=== PATIENT | male | born 1990 | race Caucasian/White ===

== ENCOUNTER 2022-03-12 17:15 | Observation (INO) | payer OTHER ==
[2022-03-12] MEDS ORDERED: AMMONIA 1 EA AMP IH ONE (17:39)
[2022-03-12] MEDS ORDERED: 0.9%NACL 1000ML 1,000 ML IV ONE (17:42)
[2022-03-12 17:54] LABS: ABG BASE EXCESS -0.3 mmol/L (-2.0-3.0); ABG HCO3 24.3 mmol/L (21.0-28.0); ABG OXYGEN SATURATION 98.9 % (95.0-99.0); ABG PCO2 40 mmHg (35-48)
[2022-03-12 17:59] LABS: BASOPHILS % (AUTO) 0.8 % (0.0-5.0); EOSINOPHILS % (AUTO) 0.9 % (0.0-8.0); LYMPHOCYTES % (AUTO) 13.2 % (21.0-51.0); MEAN CORPUSCULAR HEMOGLOBIN 30.7 pg (27.0-33.0); MEAN CORPUSCULAR HGB CONC 33.1 g/dL (32.0-36.0); MEAN CORPUSCULAR VOLUME 92.7 fL (79-99); MONOCYTES % (AUTO) 6.7 % (3.0-13.0); NEUTROPHILS % (AUTO) 77.6 % (40.0-77.0); PLATELET COUNT (AUTO) 270 K/uL (130-400); RED CELL DISTRIBUTION WIDTH 13.1 % (11.0-15.5); WHITE BLOOD COUNT (AUTO) 11.8 K/uL (4.8-10.8)
[2022-03-12 18:10] LABS: APPEARANCE,URINE Clear (CLEAR); BILIRUBIN,URINE Negative (NEGATIVE); COLOR,URINE Yellow (YELLOW); GLUCOSE, URINE (UA) Negative (NEGATIVE); KETONES,URINE Negative (NEGATIVE); LEUKOCYTE ESTERASE ,URINE Negative (NEGATIVE); NITRATE,URINE Negative (NEGATIVE); OCCULT BLOOD,URINE Negative (NEGATIVE); PH,URINE 6.5 (5.0-8.0); PROTEIN,URINE Negative (NEGATIVE)
[2022-03-12 18:18] LABS: CARBON DIOXIDE 28 mmol/L (21-32); CHLORIDE 107 mmol/L (101-111); CREATININE 0.9 mg/dL (0.5-1.5); GLOMERULAR FILTR. RATE CALC 105 mL/min (>60); GLUCOSE,RANDOM 101 mg/dL (70-105); POTASSIUM 3.9 mmol/L (3.5-5.1); SODIUM SERUM 145 mmol/L (136-145); UREA NITROGEN, BLOOD 9 mg/dL (7-18)
[2022-03-12 18:18] LABS: AMPHET/METH SCREEN,URINE POSITIVE (NEGATIVE); BARBITURATE SCREEN, URINE NEGATIVE (NEGATIVE); BENZODIAZEPINES SCREEN,URINE NEGATIVE (NEGATIVE); CANNABINOID SCREEN,URINE POSITIVE (NEGATIVE); COCAINE SCREEN,URINE POSITIVE (NEGATIVE); OPIATE SCREEN,URINE NEGATIVE (NEGATIVE); PHENCYCLIDINE SCREEN,URINE NEGATIVE (NEGATIVE)
[2022-03-12 18:22] LABS: ALANINE AMINOTRANSFERASE 30 U/L (12-78); ALBUMIN 4.2 g/dL (3.5-5.0); ALCOHOL, BLOOD < 3 mg/dL (0-10); ASPARTATE AMINOTRANSFERASE 18 U/L (10-37); BILIRUBIN,TOTAL 0.3 mg/dL (0.2-1.0); CREATINE KINASE, TOTAL 84 U/L (21-232); TOTAL PROTEIN, SERUM 7.6 g/dL (6.0-8.3)
[2022-03-12 18:23] LABS: ACETAMINOPHEN < 1 mcg/mL (10-29); SALICYLATE < 2.8 mg/dL (2.8-20.0)
[2022-03-12] MEDS ORDERED: LORAZEPAM 2 MG/ML 1 ML VIAL IVP ONE (18:30)
[2022-03-12] MEDS ORDERED: LORAZEPAM 2 MG/ML 1 ML VIAL IVP PRN (20:00)
[2022-03-12] MEDS ORDERED: ONDANSETRON 4MG INJ IV PRN (20:00)
[2022-03-12] MEDS ORDERED: ACETAMINOPHEN 325 MG TAB PO PRN (20:00)
[2022-03-12] MEDS ORDERED: 0.9%NACL 1000ML 1,000 ML IV SCH (20:00)
[2022-03-12] MEDS ORDERED: FAMOTIDINE 20MG VIAL IV SCH (21:00)
[2022-03-12 22:57] VITALS: BP 129/80
[2022-03-13] MEDS ORDERED: ENOXAPARIN SODIUM 40 MG/0.4 ML SYRINGE SQ SCH (09:00)
== END 2022-03-13 01:21 | disposition left against medical advice (07) ==
LOC: EDH 17:15 → EEVIPCON 17:15 → EDHIP 17:16
PROVIDERS: ADMIT Hospitalist; ATTEND Hospitalist
DX: R41.82 Altered mental status, unspecified (principal); R25.9 Unspecified abnormal involuntary movements; R56.9 Unspecified convulsions; F19.10 Other psychoactive substance abuse, uncomplicated; F14.10 Cocaine abuse, uncomplicated; F15.10 Other stimulant abuse, uncomplicated; F12.10 Cannabis abuse, uncomplicated; Z79.899 Other long term (current) drug therapy
CPT/HCPCS: 36415; 36600; 70450; 71045; 74018; 80053; 80305; 81003; 82435; 82550; 82803; 82947; 83605; 84132; 84145; 84295; 85018; 85025; 93005; 96361; 96374; 96375; 99285; G0378 ×7; G0481; J2060; J3490 ×2; J7030 ×2

== ENCOUNTER 2025-01-09 11:51 | Inpatient (IN) | payer SELFPAY ==
[~2025-01-09] VITALS: Ht 167.6 cm; Wt 105.7 kg
--- NOTE | 2025-01-09 12:00 | ERN ---
ED Note History of Present Illness Stated Complaint: ABDOMINAL PAIN Chief Complaint: Abdominal Pain Time Seen by MD: 11:52 Dictation: PATIENT IS A 34-YEAR-OLD MALE COMING IN WITH COMPLAINTS OF EPIGASTRIC AND LEFT UPPER QUADRANT PAIN BURNING ONSET 10 DAYS PRIOR TO ARRIVAL. NO NAUSEA VOMITING NO DIARRHEA NO FEVER NO CHILLS. STATES HE WAS SEEN AT [facility] SEVERAL DAYS AGO FOR THE SAME PAIN, THEY PAT LABS AND PRESCRIBED MEDICATIONS TO HIM OUTPATIENT WHICH HE DID NOT FEEL. HE STATES THE PAIN WENT AWAY AFTER HIS VISIT TO [facility] EVEN THOUGH THEY DID NOT DO ANYTHING FOR ME. HE DID NOT FOLLOW UP WITH HIS PRIMARY CARE DOCTOR COLLAR . LAST FOOD INTAKE WAS LAST NIGHT, HE STATES HE ATE [facility] AND THE PAIN RETURNED Allergies: Coded Allergies: No Known Allergies (Unverified Allergy, Unknown, 03/12/22) Past Medical History Past Medical History: Anxiety Additional Past Medical Hx: Obesity Surgical History: None Family History: Negative Social History: Negative RN Note Reviewed/Agreed w/PFSH: Yes Review of System Dictation CONSTITUTIONAL: NEGATIVE EXCEPT FOR HPI HEAD/FACE: NEGATIVE EXCEPT FOR HPI EENT: NEGATIVE EXCEPT FOR HPI RESPIRATORY: NEGATIVE EXCEPT FOR HPI GASTROINTESTINAL/ABDOMINAL: NEGATIVE EXCEPT FOR HPI EPIGASTRIC AND LEFT UPPER QUADRANT PAIN/BURN GENITOURINARY: NEGATIVE EXCEPT FOR HPI MUSCULOSKELETAL: NEGATIVE EXCEPT FOR HPI INTEGUMENTARY: NEGATIVE EXCEPT FOR HPI NEUROLOGICAL/PSYCH: NEGATIVE EXCEPT FOR HPI HEMATOLOGIC/LYMPHATIC: NEGATIVE EXCEPT FOR HPI ALL SYSTEMS NEGATIVE, EXCEPT NOTED ABOVE. 13 POINT REVIEW OF SYSTEMS ASSESSED AND ALL NEGATIVE EXCEPT FOR ABOVE. Initial Vital Sign VS Vital Signs Date Time Temp Pulse Resp B/P (MAP) Pulse Ox O2 Delivery O2 Flow Rate FiO2 01/09/25 11:54 97.9 76 20 153/93 98 Room Air 0 01/09/25 12:06 21 Physical Exam Dictation VITAL SIGNS REVIEWED GENERAL APPEARANCE: ALERT, ORIENTED X 3, MODERATE ACUTE DISTRESS, WELL DEVELOPED, NOURISHED. OBESE HEAD AND FACE: NON-TRAUMATIC. EYES: PERRL, PINK CONJUNCTIVAS, EYELID NO TRAUMA, ANTERIOR CHAMBER WITH ARCUS SENILIS. EARS: PINNAS INTACT AND NO SIGNS OF TRAUMA OR ERYTHEMA EAR CANALS CLEAR AND NO DISCHARGE TM NO ERYTHEMA NOSE: NO DISCHARGE, NO BLEEDING. OROPHARYNX: MOUTH NORMAL, TONGUE PINK, PHARYNX CLEAR,NO ERYTHEMA, TONSILS NO EXUDATES, NO ABSCESSES NOTED, MUCOUS MEMBRANE MOIST NECK: SUPPLE, NON-TENDER, NO THYROMEGALY, NO MASSES, NO JVD, NO BRUITS BREAST:DEFERRED CHEST:NO TENDERNESS, NO CREPITUS, NO PARADOXICAL MOVEMENT, NO RETRACTIONS LUNGS:CLEAR, WELL-VENTILATED, SYMMETRIC, NO RALES, NO WHEEZING, NO RHONCHI, NO STRIDOR, GOOD BREATH SOUNDS BILATERALLY HEART: REGULAR RATE, REGULAR RHYTHM, NO MURMUR, NO GALLOPS VASCULAR: NO PERIPHERAL EDEMA, ABDOMEN: SOFT, POSITIVE BOWEL SOUNDS, NONDISTENDED, NO GUARDING, MILD EPIGASTRIC TENDERNESS NO REBOUND, NO MASSES NO HEPATOMEGALY, NO SPLENOMEGALY, NO INFANTE'S SIGN, NO HERNIAS. RECTAL: DEFERRED GENITAL: DEFERRED NEUROLOGICAL: NORMAL SPEECH, MOTOR FUNCTION INTACT, SENSORY FUNCTION INTACT MUSCULOSKELETAL: NECK NONTENDER, FULL RANGE OF MOTION, BACK NONTENDER, FULL RANGE OF MOTION, EXTREMITIES: NONTENDER, FULL RANGE OF MOTION SKIN: COLOR PINK, DRY, NO TURGOR, NO RASH, NO LACERATIONS, NO ABRASIONS, NO CONTUSIONS. LYMPHATIC: DEFERRED Results (Laboratory/Radiology) Laboratory/Radiology Laboratory Tests Test 01/09/25 12:03 01/09/25 12:10 01/09/25 17:00 01/09/25 19:09 Urine Opiates Screen NEGATIVE (NEGATIVE) Urine Barbiturates Screen NEGATIVE (NEGATIVE) Urine Phencyclidine Screen NEGATIVE (NEGATIVE) Urine Amphetamines Screen NEGATIVE (NEGATIVE) Urine Benzodiazepines Screen NEGATIVE (NEGATIVE) Urine Cocaine Screen POSITIVE (NEGATIVE) H Urine Marijuana (THC) Screen POSITIVE (NEGATIVE) H White Blood Count 17.2 K/uL (4.8-10.8) H Red Blood Count 5.10 MIL/uL (4.50-6.20) Hemoglobin 14.9 g/dL (14.0-18.0) Hematocrit 45.7 % (42-54) Mean Corpuscular Volume 89.6 fL (79-99) Mean Corpuscular Hemoglobin 29.2 pg (27.0-33.0) Mean Corpuscular Hemoglobin Concent 32.6 g/dL (32.0-36.0) Red Cell Distribution Width 13.1 % (11.0-15.5) Platelet Count 355 K/uL (130-400) Mean Platelet Volume 9.7 fL (7.5-10.5) Immature Granulocyte % (Auto) 0.9 % (0-1) Neutrophils (%) (Auto) 83.8 % (40.0-77.0) H Lymphocytes (%) (Auto) 8.3 % (21.0-51.0) L Monocytes (%) (Auto) 6.3 % (3.0-13.0) Eosinophils (%) (Auto) 0.2 % (0.0-8.0) Basophils (%) (Auto) 0.5 % (0.0-5.0) Neutrophils # (Auto) 14.4 K/uL (1.8-7.7) H Lymphocytes # (Auto) 1.4 K/uL (1.0-4.8) Monocytes # (Auto) 1.1 K/uL (0.1-1.0) H Eosinophils # (Auto) 0.03 K/uL (0.00-0.70) Basophils # (Auto) 0.08 K/uL (0.00-0.20) Absolute Immature Granulocyte (auto 0.16 K/uL (0-1) Nucleated Red Blood Cells 0.0 % (0.0-0.19) White Cell Morphology Comment See comments Erythrocyte Sedimentation Rate 25 MM/HR (0-15) H Prothrombin Time 10.4 SEC (9.6-11.6) Prothromb Time International Ratio 0.98 (0.85-1.15) Activated Partial Thromboplast Time 29.3 SEC (26.3-35.5) Sodium Level 139 mmol/L (136-145) Potassium Level 4.0 mmol/L (3.5-5.1) Chloride Level 100 mmol/L (101-111) L Carbon Dioxide Level 33 mmol/L (21-32) H Blood Urea Nitrogen 10 mg/dL (7-18) Creatinine 0.8 mg/dL (0.5-1.3) Glomerular Filtration Rate Calc 119 mL/min (>90) Random Glucose 116 mg/dL (70-105) H Hemoglobin A1c 5.2 % (4.0-6.0) Estimated Average Glucose (eAG) 103 mg/dL (70-126) Total Calcium 9.5 mg/dL (8.5-10.1) Total Bilirubin 2.8 mg/dL (0.2-1.0) H Direct Bilirubin 2.1 mg/dL (0.0-0.3) H Aspartate Amino Transf (AST/SGOT) 376 U/L (10-37) H Alanine Aminotransferase (ALT/SGPT) 553 U/L (12-78) H Alkaline Phosphatase 175 U/L (50-136) H C-Reactive Protein, Quantitative 27.10 mg/L (0.5-3.0) H Total Protein 8.0 g/dL (6.0-8.3) Albumin 4.0 g/dL (3.5-5.0) Lipase 22 U/L (16-77) Procalcitonin 0.30 ng/mL (0.05-0.5) Thyroid Stimulating Hormone (TSH) 0.90 uIU/mL (0.36-3.74) Total Creatine Kinase 96 U/L (21-232) Troponin I High Sensitivity 6.6 ng/L (4-75) B-Type Natriuretic Peptide 17 pg/mL (0-100) Whole Blood Glucose 85 MG/DL (70-110) Test 01/10/25 05:17 01/10/25 06:17 01/11/25 06:07 Whole Blood Glucose 92 MG/DL (70-110) White Blood Count 8.5 K/uL (4.8-10.8) # 8.0 K/uL (4.8-10.8) Red Blood Count 4.40 MIL/uL (4.50-6.20) L 4.52 MIL/uL (4.50-6.20) Hemoglobin 12.9 g/dL (14.0-18.0) L 13.5 g/dL (14.0-18.0) L Hematocrit 40.2 % (42-54) L 41.2 % (42-54) L Mean Corpuscular Volume 91.4 fL (79-99) 91.2 fL (79-99) Mean Corpuscular Hemoglobin 29.3 pg (27.0-33.0) 29.9 pg (27.0-33.0) Mean Corpuscular Hemoglobin Concent 32.1 g/dL (32.0-36.0) 32.8 g/dL (32.0-36.0) Red Cell Distribution Width 13.2 % (11.0-15.5) 13.1 % (11.0-15.5) Platelet Count 242 K/uL (130-400) # 258 K/uL (130-400) Mean Platelet Volume 9.4 fL (7.5-10.5) 9.5 fL (7.5-10.5) Immature Granulocyte % (Auto) 0.9 % (0-1) 1.5 % (0-1) H Neutrophils (%) (Auto) 71.3 % (40.0-77.0) 69.2 % (40.0-77.0) Lymphocytes (%) (Auto) 18.1 % (21.0-51.0) L 20.3 % (21.0-51.0) L Monocytes (%) (Auto) 8.0 % (3.0-13.0) 6.9 % (3.0-13.0) Eosinophils (%) (Auto) 1.3 % (0.0-8.0) 1.6 % (0.0-8.0) Basophils (%) (Auto) 0.4 % (0.0-5.0) 0.5 % (0.0-5.0) Neutrophils # (Auto) 6.1 K/uL (1.8-7.7) 5.5 K/uL (1.8-7.7) Lymphocytes # (Auto) 1.6 K/uL (1.0-4.8) 1.6 K/uL (1.0-4.8) Monocytes # (Auto) 0.7 K/uL (0.1-1.0) 0.6 K/uL (0.1-1.0) Eosinophils # (Auto) 0.11 K/uL (0.00-0.70) 0.13 K/uL (0.00-0.70) Basophils # (Auto) 0.03 K/uL (0.00-0.20) 0.04 K/uL (0.00-0.20) Absolute Immature Granulocyte (auto 0.08 K/uL (0-1) 0.12 K/uL (0-1) Nucleated Red Blood Cells 0.0 % (0.0-0.19) 0.0 % (0.0-0.19) Prothrombin Time 11.3 SEC (9.6-11.6) Prothromb Time International Ratio 1.07 (0.85-1.15) Sodium Level 138 mmol/L (136-145) Potassium Level 3.8 mmol/L (3.5-5.1) Chloride Level 104 mmol/L (101-111) Carbon Dioxide Level 28 mmol/L (21-32) Blood Urea Nitrogen 7 mg/dL (7-18) Creatinine 0.8 mg/dL (0.5-1.3) Glomerular Filtration Rate Calc 119 mL/min (>90) Random Glucose 83 mg/dL (70-105) Total Calcium 8.2 mg/dL (8.5-10.1) L Total Bilirubin 5.3 mg/dL (0.2-1.0) #H Direct Bilirubin 4.6 mg/dL (0.0-0.3) #H Aspartate Amino Transf (AST/SGOT) 179 U/L (10-37) H Alanine Aminotransferase (ALT/SGPT) 362 U/L (12-78) #H Alkaline Phosphatase 166 U/L (50-136) H Total Protein 6.1 g/dL (6.0-8.3) # Albumin 2.7 g/dL (3.5-5.0) #L No aortic aneurysmal dilation or dissection identified. PELVIS: No evidence for free air or organized pelvic fluid collection. No significant pelvic adenopathy detected. Visualized small and large bowel loops appear unremarkable. Terminal ileum appears normal. The appendix appears normal. The urinary bladder appears unremarkable. Visible osseous structures are intact. IMPRESSION: Sonographic imaging was not available prior to this study. Findings suggesting acute calculus cholecystitis. ULTRASOUND RIGHT UPPER QUADRANT DEMONSTRATES GALLBLADDER WALL SEVEN MM. IN ADDITION HE HAS MULTIPLE STONES WITH SLUDGE COMMON BILE DUCT NORMAL FATTY LIVER NOTED Labs Reviewed?: Yes ED Course ED Course Orders Procedure Category Date Status Time Cbc With Differential LAB 01/09/25 Complete 11:56 Lidocaine Hcl 2% PHA 01/09/25 Complete Viscous (Lidocaine Hcl 12:00 Mag/Alum/Simeth 30ml PHA 01/09/25 Complete (Maalox Plus 30ml) 12:00 Famotidine 20mg Tab PHA 01/09/25 Complete (Pepcid 20mg Tab) 12:00 Dicyclomine Hcl PHA 01/09/25 Complete (Bentyl 10mg/5ml 12:00 Lipase LAB 01/09/25 Complete 11:56 Basic Metabolic Panel LAB 01/09/25 Complete 11:56 0.9%Nacl 1000ml (Ns PHA 01/09/25 Complete 1000ml) 12:30 Morphine 2mg Syg PHA 01/09/25 Complete (Morphine 2mg Syg) 12:30 Ondansetron 4mg Inj PHA 01/09/25 Complete (Zofran 4mg Inj) 12:30 Ct Abdomen/Pelvis CT 01/09/25 Resulted W/Contrast 12:42 Iohexol (Omnipaque) PHA 01/09/25 Complete 12:49 Zosyn 3.375gm+Ns 50ml PHA 01/09/25 Complete (Zosyn 3.375gm+Ns 14:00 Us Abdominal Ruq\Ltd US 01/09/25 Resulted 13:31 Morphine 4mg Syg PHA 01/09/25 Complete (Morphine 4mg Syg) 14:00 Admit Orders ADM 01/09/25 Transmitted 14:45 Edm Admit Bridge Order ADM 01/09/25 Transmitted 14:45 General Surgery CONPHYSVC 01/09/25 Transmitted Consult 14:45 Lactated Ringers PHA 01/09/25 In Process 1000ml (Lactated 15:00 Hepatic Function Panel LAB 01/09/25 Complete 14:55 Thyroid Stimulating LAB 01/09/25 Complete Hormone 14:55 Hemoglobin A1c LAB 01/09/25 Complete 14:55 Pt And Ptt LAB 01/09/25 Complete 14:55 Drug Screen Urine LAB 01/09/25 Complete 14:55 Blood Cult DIDI 01/09/25 In Process 14:55 Erythrocyte LAB 01/09/25 Complete Sedimentation Rate 14:55 Crp Quantitative LAB 01/09/25 Complete 14:55 Procalcitonin LAB 01/09/25 Complete 14:55 Telemetry Monitoring CPOE 01/09/25 Transmitted 14:55 Prothrombin Time With LAB 01/10/25 Complete INR 04:00 Obtain Consent For: CPOE 01/10/25 Transmitted 09:00 Acetaminophen 325 Tab PHA 01/09/25 In Process (Tylenol 325mg Tab 15:00 Ondansetron 4mg Inj PHA 01/09/25 In Process (Zofran 4mg Inj) 15:00 Thiamine Hcl (Vitamin PHA 01/09/25 In Process B-1) 15:00 Npo Except For Meds CPOE 01/09/25 Transmitted 14:57 Scd Both Legs While CPOE 01/09/25 Transmitted In Bed 14:57 Zosyn 3.375gm+Ns 50ml PHA 01/09/25 In Process (Zosyn 3.375gm+Ns 19:00 0.9%Nacl 50ml (Ns PHA 01/09/25 Complete 50ml) 19:00 Pantoprazole 40mg Inj PHA 01/09/25 In Process (Protonix 40mg Inj 15:00 Chest 1vw RAD 01/09/25 Resulted 15:01 Ketorolac PHA 01/09/25 In Process Tromethamine 15mg/Ml 15:30 Morphine 2mg Syg PHA 01/09/25 In Process (Morphine 2mg Syg) 15:30 Cardiac Panel LAB 01/09/25 Complete 16:29 B-Type Natriuretic LAB 01/09/25 Complete Peptide 16:30 Nm Hida Wo Ef/Cck NM 01/09/25 Resulted 14:55 Hydralazine 20mg Inj PHA 01/09/25 In Process (Apresoline 20mg In 18:30 Cbc With Differential LAB 01/10/25 Complete 04:00 Basic Metabolic Panel LAB 01/10/25 Complete 04:00 Hepatic Function Panel LAB 01/10/25 Complete 06:17 Gastroenterology CONPHYSVC 01/10/25 Transmitted Consult 08:47 Acetaminophen With PHA 01/10/25 In Process Codeine (Tylenol-Code 10:00 Cv Rt Incentive CPOE 01/10/25 Transmitted Spirometry 09:45 Initiate Po MIKKI 01/10/25 In Process Hypokalemia Protoc 09:45 Potassium Chloride PHA 01/10/25 In Process 20meq/100ml ([place] 10:00 Potassium Chl 10% PHA 01/10/25 In Process Elixir 20meq (Kcl 10% 10:00 Potassium Chloride PHA 01/10/25 In Process 20meq Er (K-Dur/Klor- 10:00 Notify Physician If CPOE 01/10/25 Transmitted There Is 09:45 Notify Md On The Next CPOE 01/10/25 Transmitted 09:45 Notify Md On The CPOE 01/10/25 Transmitted Next(Cont.) 09:45 Magnesium 2gm Premix PHA 01/10/25 In Process 50ml (Magnesium 2gm 10:00 Cbc With Differential LAB 01/11/25 Complete 04:00 Magnesium LAB 01/11/25 In Process 04:00 Comprehensive LAB 01/11/25 In Process Metabolic Panel 04:00 Midazolam Hcl (Versed) PHA 01/10/25 Complete 11:42 Rocuronium [place] PHA 01/10/25 Complete (Zemuron) 11:42 Propofol 20ml Vial PHA 01/10/25 Complete (Diprivan 20ml Vial) 11:42 Fentanyl Citrate Pf PHA 01/10/25 Complete 0.05 Mg/Ml (Fentanyl 11:42 Ondansetron 4mg Inj PHA 01/10/25 Complete (Zofran 4mg Inj) 11:47 Ercp Bili/Panc Duct RAD 01/10/25 Resulted 11:54 Iohexol (Omnipaque) PHA 01/10/25 Complete 11:56 Consent Ercp In Am CPOE 01/10/25 Transmitted 11:59 Atropine 1mg Syg PHA 01/10/25 Complete (Atropine 1mg Syg) 12:47 Glycopyrrolate PHA 01/10/25 Complete (Robinul) 13:05 Neostigmine PHA 01/10/25 Complete Methylsulfate 13:05 Indomethacin PHA 01/10/25 Complete (Indomethacin) 13:30 Full Liquid DIET 01/10/25 Transmitted Dinner Npo After Midnight MIKKI 01/10/25 Transmitted 14:54 Obtain Consent For: CPOE 01/11/25 Transmitted 08:00 Nicotine 7mg Patch PHA 01/10/25 Complete (Nicoderm) 18:30 Amylase LAB 01/11/25 In Process 04:00 Lipase LAB 01/11/25 In Process 04:00 Vital Signs Date Time Temp Pulse Resp B/P (MAP) Pulse Ox O2 Delivery O2 Flow Rate FiO2 01/11/25 04:00 98.6 55 16 101/65 94 Room Air 01/11/25 00:00 98.4 63 16 112/61 97 Room Air 21 01/10/25 20:41 96 Room Air* 0 01/10/25 20:00 98.2 70 16 125/82 96 Room Air 21 01/10/25 18:00 62 18 103/68 97 Room Air 01/10/25 17:00 59 18 106/62 98 Room Air 01/10/25 16:00 62 18 105/61 97 Room Air 01/10/25 15:30 65 18 114/67 97 Room Air 01/10/25 15:00 57 18 112/70 97 Room Air 01/10/25 14:45 101 18 109/56 98 Room Air 01/10/25 14:30 71 18 98/63 98 Room Air 01/10/25 14:15 98 18 117/73 98 Room Air 01/10/25 14:00 97.9 62 18 117/65 99 Room Air 01/10/25 13:54 97.7 56 17 128/77 100 Room Air 01/10/25 13:49 54 16 119/74 99 Room Air 01/10/25 13:44 56 15 125/72 100 Room Air 01/10/25 13:39 57 16 122/71 100 Room Air 01/10/25 13:34 53 17 123/77 98 Room Air 01/10/25 13:29 53 16 125/78 99 Room Air 01/10/25 13:24 51 16 114/73 98 Room Air 01/10/25 13:19 54 15 107/61 97 Room Air 01/10/25 13:14 59 17 101/59 98 Room Air 01/10/25 13:09 97.3 81 16 119/61 99 Nonrebreathing Mask 10.0 01/10/25 09:10 97 Room Air* 0 01/10/25 08:00 97.9 53 17 105/64 97 Room Air 01/10/25 04:00 98.2 65 16 98/60 96 Room Air 01/10/25 00:00 97.9 100 16 114/62 94 Room Air 01/09/25 20:44 96 Room Air* 0 01/09/25 20:00 98.1 93 17 141/87 96 Room Air 01/09/25 17:35 98.1 77 17 160/84 99 Room Air 01/09/25 17:05 99 Room Air* 0 01/09/25 13:51 99.0 84 20 135/65 98 Room Air* 0 01/09/25 12:06 97.9 76 20 153/93 98 Room Air* 0 01/09/25 11:54 97.9 76 20 153/93 98 Room Air 0 1440/SPOKE WITH , REVIEWED CT ULTRASOUND LABS AND INTERVENTIONS FOR PAIN MULTIPLE TIMES. HE AGREED TO ADMIT PATIENT AND ASKED ME TO CONSULT DR. HOLM Medical Decision Making MDM MDM: DIFFERENTIAL DIAGNOSIS: INTRACTABLE ABDOMINAL PAIN/PANCREATITIS/: LITHIASIS/CHOLEDOCHOLITHIASIS/HIS LICE GASTRITIS RATIONALE: TESTS CONSIDERED AND ORDERED SECONDARY TO SHARED DECISION MAKING INCLUDE: LABS, AND RADIOLOGY PREVIOUS OUTSIDE RECORDS REVIEWED: OLD ER VISITS. RISK OF COMPLICATION AND/OR MORBIDITY OR MORTALITY OF PATIENT MANAGEMENT: NONE MEDICATIONS-PER MEDICATION RECONCILIATION NEED FOR HOSPITALIZATION: PATIENT DOES MEET CRITERIA FOR HOSPITALIZATION. INTRACTABLE ABDOMINAL PAIN CHOLELITHIASIS NEED FOR EMERGENCY MAJOR/MINOR SURGERY: NO POSSIBLE THERE ARE NO SOCIAL CONCERNS WITH THIS PATIENT. PRESCRIPTION DRUG MANAGEMENT PRESCRIPTIONS WILL INCLUDE SYMPTOMATIC CARE PATIENT'S PRIOR EXTERNAL MEDICAL RECORDS FROM OTHER ER VISITS WERE REVIEWED BY ME INDICATED. PRIOR TESTING AND RESULTS FROM PREVIOUS VISITS WERE REVIEWED. PRIOR TESTS WERE TAKEN INTO ACCOUNT WITH MEDICAL DECISION MAKING AND RESOURCE UTILIZATION, INDEPENDENT HISTORIAN/HISTORIANS WERE USED TO OBTAIN COMPLETE MEDICAL HISTORY. I INDEPENDENTLY INTERPRETED THE TEST THAT WERE PERFORMED, RESULTS WERE REVIEWED BY ME AND CONSIDERED FINDINGS ON RADIOLOGY IF ORDERED. MEDICAL MANAGEMENT AND EXAMINATION INTERPRETATION DISCUSSIONS WERE HAD BY ME WITH OTHER QUALIFIED HEALTHCARE PROFESSIONALS INDICATED FOR THE PATIENT'S CARE. DX & DISP Disposition: Inpatient Decision to Admit Time: 14:32 Departure Impression: Primary Impression: Acute cholecystitis Additional Impressions: Hyperglycemia, Nausea & vomiting, Intractable ab dominal pain Condition: Stable Referrals: NONE (PCP) Time of Disposition: 14:32 I have reviewed the case, and I agree with, Diagnosis and Plan I performed a substantive portion of the visit. I have reviewed and personally made and approve the management plan that is documented in the notes by myself with ENE/resident. I acknowledged full responsibility for the patient's management plan. RACIEL MOY NP Jan 09, 2025 12:00 ALMA GARCIA DO Jan 11, 2025 07:04
[2025-01-09] MEDS: DICYCLOMINE HCL 10 MG/5 ML ML PO ONE (12:12)
[2025-01-09] MEDS: MAG/ALUM/SIMETH 30 ML UDCUP PO ONE (12:12)
[2025-01-09] MEDS: FAMOTIDINE 20MG TAB PO ONE (12:12)
[2025-01-09] MEDS: LIDOCAINE HCL 2% VISCOUS 15 ML UDCUP PO ONE (12:12)
[2025-01-09 12:17] LABS: BASOPHILS # (AUTO) 0.08 K/uL (0.00-0.20); BASOPHILS % (AUTO) 0.5 % (0.0-5.0); EOSINOPHILS # (AUTO) 0.03 K/uL (0.00-0.70); EOSINOPHILS % (AUTO) 0.2 % (0.0-8.0); HEMATOCRIT 45.7 % (42-54); IMMATURE GRANULOCYTE ABSOLUTE 0.16 K/uL (0-1); LYMPHOCYTES # (AUTO) 1.4 K/uL (1.0-4.8); LYMPHOCYTES % (AUTO) 8.3 % (21.0-51.0); MEAN CORPUSCULAR HEMOGLOBIN 29.2 pg (27.0-33.0); MEAN CORPUSCULAR HGB CONC 32.6 g/dL (32.0-36.0); MEAN CORPUSCULAR VOLUME 89.6 fL (79-99); MONOCYTES # (AUTO) 1.1 K/uL (0.1-1.0); MONOCYTES % (AUTO) 6.3 % (3.0-13.0); NEUTROPHILS # (AUTO) 14.4 K/uL (1.8-7.7); NEUTROPHILS % (AUTO) 83.8 % (40.0-77.0); PLATELET COUNT (AUTO) 355 K/uL (130-400); RED CELL DISTRIBUTION WIDTH 13.1 % (11.0-15.5); WHITE BLOOD COUNT (AUTO) 17.2 K/uL (4.8-10.8)
[2025-01-09 12:28] LABS: CREATININE 0.8 mg/dL (0.5-1.3)
[2025-01-09] MEDS ORDERED: IOHEXOL-350 75 ML VIAL IV ONE (12:49)
[2025-01-09] MEDS: 0.9%NACL 1000ML 1,000 ML IV ONE (13:00)
[2025-01-09] MEDS: morPHINE 2 MG SYG IVP ONE (13:00)
[2025-01-09] MEDS: ondanSETRON 4MG INJ IVP ONE (13:00)
--- NOTE | 2025-01-09 13:27 | HMCIMG ---
CT ABDOMEN WITH CONTRAST. CT PELVIS WITH CONTRAST INDICATION: Left upper and lower abdominal pain with tenderness TECHNIQUE: Routine transaxial images using 5 mm slice thickness were obtained after the intravenous infusion of 75 mL of Omnipaque 350 without adverse effects. Oral contrast was not administered. Rectal contrast was not administered. Coronal and sagittal reformatted images acquired for interpretation. CT was performed with one or more of the following dose reduction techniques: Automated exposure control, adjustment of the mA and/or kV according to patient size, or use of iterative reconstruction technique. COMPARISON: None FINDINGS: ABDOMEN: Mild bilateral gynecomastia for which the differential is broad. Heart size is normal. Visible lung bases are clear. The liver is normal in size and smooth in contour without lesions or biliary duct dilation. The spleen is normal in size without lesions. Gallbladder fundus is trace pericholecystic fluid suspected. Filled with peripherally having calcific stones The pancreas appears normal without pancreatic duct dilation. The adrenal glands appear normal. Both kidneys appear unremarkable. Cortical nephrograms are symmetric and normal in appearance bilaterally. No evidence for intra-abdominal free air or organized fluid collection. No retrocrural, intraabdominal, or retroperitoneal lymphadenopathy identified. No aortic aneurysmal dilation or dissection identified. PELVIS: No evidence for free air or organized pelvic fluid collection. No significant pelvic adenopathy detected. Visualized small and large bowel loops appear unremarkable. Terminal ileum appears normal. The appendix appears normal. The urinary bladder appears unremarkable. Visible osseous structures are intact. IMPRESSION: Sonographic imaging was not available prior to this study. Findings suggesting acute calculus cholecystitis.
[2025-01-09] MEDS: ZOSYN 3.375GM +NS 50ML IVPB ONE (13:39)
[2025-01-09] MEDS: morPHINE 4 MG SYG IVP ONE (13:50)
--- NOTE | 2025-01-09 14:32 | HMCIMG ---
ULTRASOUND ABDOMEN LIMITED INDICATION: Right upper abdominal pain COMPARISON: None FINDINGS: The liver is enlarged and increased in echogenicity; no focal lesion demonstrated. Main portal vein is patent, and normal direction of vascular flow demonstrated. Liver length is measured at 19.3 cm. The common bile duct diameter measures 6.0 mm. Gallbladder is distended. Gallbladder is filled with sludge and stones, but no pericholecystic fluid demonstrated. No sonographic Deleon's sign elicited by the ultrasound batting machine operator. Wall thickness measures 7.0 mm. Pancreas is obscured by overlying bowel gas. The right kidney measures 10.2 x 4.8 x 5.1 cm,and is normal in echogenicity, without evidence for hydronephrosis.No shadowing stones demonstrated. No free fluid demonstrated. IMPRESSION: Limitations as reported. Cholelithiasis without evidence for cholecystitis. If clinical suspicion persists, further evaluation with nuclear medicine hepatobiliary scan is recommended. Findings suggesting hepatomegaly and hepatic steatosis or other underlying hepatocellular disease process. It
[2025-01-09] MEDS ORDERED: acetaMINOPHEN 325 MG TAB PO PRN (15:00)
--- NOTE | 2025-01-09 15:22 | HP ---
[facility] HISTORY AND PHYSICAL Date of Service: Jan 09, 2025 Time of Service: 15:05 HISTORY OF PRESENT ILLNESS: Date of service: 01/09/2025, patient was seen in ER room two 34-year-old male with history of tobacco use, chronic cocaine use disorder, obesity who presented to the ER for further evaluation of epigastric and left upper quadrant abdominal pain with associated nausea and vomiting. Symptoms have been ongoing for the past two weeks and patient describes having intermittent colicky abdominal pain. Patient last night had carne guisada and since then he has been having severe pain which he rates as 10/10 in intensity. Patient denies any previous GI disorder. He was seen in [facility] about three days ago and had blood work done and was treated with conser vative treatment. Patient states that he continues to do poorly. Patient does have significant history of cocaine use with last use of cocaine being about 2-3 days ago. He uses cocaine once a week and has been using it for about 10 years. He smokes about 5-6 cigarettes daily for the past 10 years as well. Denies any significant alcohol consumption. Denies any intravenous drug use. On presentation to the hospital, patient was noted to have T-max of 99.0 F, heart rate of 76, blood pressure of 153/93. [place] [address] with left shift, hemoglobin of 14.9, platelet count of [id number]. BMP remarkable for sodium 139, potassium 4.0, chloride of 100, CO2 of 33, creatinine of 0.8, lipase of 22 Patient underwent further evaluation with CT abdomen pelvis which showed trace pericholecystic fluid with distended gallbladder with gallstones noted. Patient underwent right upper quadrant ultrasound which showed findings of cholelithiasis with thickened gallbladder wall. Radiologist had recommended a HIDA scan to rule out cholecystitis. Patient will be admitted for further management of symptomatic biliary colic with cholelithiasis and we will have General surgery evaluation. Patient will be kept NPO and will receive IV fluids and IV antibiotics. We will obtain HIDA scan this admission as well. Discussed with patient to quit illicit drug use as well as stopped smoking. Patient verbalized understanding REVIEW OF SYSTEMS CONSTITUTIONAL: Denies fevers, chills, or night sweats. No unintentional weight loss reported. NEUROLOGICAL: Denies headache, amaurosis fugax, motor weakness, sensory deficit, vertigo/spinning sensation, gait abnormalities, or tremors. ENT: No hearing loss, otalgia, otorrhea, rhinitis, rhinorrhea, hoarseness, or sore throat. CARDIOVASCULAR: Denies any exertional angina, dyspnea on exertion, orthopnea, paroxysmal nocturnal dyspnea, palpitations, life-threatening arrhythmias, claudication. PULMONARY: Denies any shortness of breath, cough, phlegm/sputum, hemoptysis, pleuritic chest pain. SLEEP: Denies morning headaches, daytime somnolence or napping. Denies difficulty falling asleep, staying asleep, waking from sleep. Denies knowledge of snoring. GASTROINTESTINAL: Epigastric abdominal pain with associated nausea and vomiting, chronic history of left upper quadrant pain for about 10 years GENITOURINARY: Denies frequency, urgency, nocturia, hematuria or incontinence (Storage/Irritative symptoms.) Low urinary stream, straining to void, urinary intermittency or hesitancy, splitting of the voiding stream, terminal dribbling. ENDOCRINOLOGIC: Denies polyuria, polydipsia, polyphagia or heat/cold intolerances. HEMATOLOGIC: Denies thrombophilia/previous clots, or coagulopathy/bleeding disorders. ONCOLOGIC: Denies personal history of malignancy. DERMATOLOGIC: Denies rashes or pruritus. PSYCHIATRIC: Denies any suicidal or homicidal ideation. Denies hallucinations. PAST MEDICAL HISTORY: Tobacco and cocaine use disorder, obesity PAST SURGICAL HISTORY: Patient denies any previous surgical history, denies any bleeding issues PAST SOCIAL HISTORY: Smokes about 5-6 cigarettes daily for the past 10 years, uses cocaine about once a week for the past 10-15 years FAMILY HISTORY: Family history of heart disease with father having an TN in his 50s Allergies: Patient denies any known drug allergies Coded Allergies: No Known Allergies (Unverified Allergy, Unknown, 03/12/22) PHYSICAL EXAM GENERAL APPEARANCE: The patient is awake, alert, and oriented, in no acute cardiopulmonary distress. NEUROLOGICAL: Cranial nerves II-XII grossly intact. Motor is 5/5 in bilateral upper and lower extremities proximal to distal. No sensory deficits. HEENT: Face is symmetric. Pupils are equal and reactive. Extraocular movements are intact. NECK: Supple. No JVD. No thyromegaly. No submental, submandibular, pre- /postauricular, occipital or supraclavicular lymphadenopathy. CHEST: Normal chest expansion. No Telemetry. LUNGS: Absence of any rales, rhonchi or any wheezing. CARDIOVASCULAR: Regular. S1 and S2 normal. No appreciable rubs, murmurs or gallops. ABDOMEN: Soft, mild tenderness to palpation of the epigastric and left upper quadrant region, Deleon's sign negative, patient did report that he received IV morphine prior : Deferred. No Curtis. EXTREMITIES: Non-edematous and not cyanotic. No clubbing. Good capillary refill. SKIN: No skin breakdown. Vital Sign (Last 24 Hours) 01/09/25 13:51 Temp 99.0 Pulse 84 Resp 20 B/P (MAP) 135/65 Pulse Ox 98 O2 Delivery Room Air* O2 Flow Rate 0 FiO2 21 LABS: Laboratory: Test 01/09/25 12:10 Range/Units White Blood Count 17.2 H 4.8-10.8 K/uL Red Blood Count 5.10 4.50-6.20 MIL/uL Hemoglobin 14.9 14.0-18.0 g/dL Hematocrit 45.7 42-54 % Mean Corpuscular Volume 89.6 79-99 fL Mean Corpuscular Hemoglobin 29.2 27.0-33.0 pg Mean Corpuscular Hemoglobin Concent 32.6 32.0-36.0 g/dL Red Cell Distribution Width 13.1 11.0-15.5 % Platelet Count 355 130-400 K/uL Mean Platelet Volume 9.7 7.5-10.5 fL Immature Granulocyte % (Auto) 0.9 0-1 % Neutrophils (%) (Auto) 83.8 H 40.0-77.0 % Lymphocytes (%) (Auto) 8.3 L 21.0-51.0 % Monocytes (%) (Auto) 6.3 3.0-13.0 % Eosinophils (%) (Auto) 0.2 0.0-8.0 % Basophils (%) (Auto) 0.5 0.0-5.0 % Neutrophils # (Auto) 14.4 H 1.8-7.7 K/uL Lymphocytes # (Auto) 1.4 1.0-4.8 K/uL Monocytes # (Auto) 1.1 H 0.1-1.0 K/uL Eosinophils # (Auto) 0.03 0.00-0.70 K/uL Basophils # (Auto) 0.08 0.00-0.20 K/uL Absolute Immature Granulocyte (auto 0.16 0-1 K/uL Nucleated Red Blood Cells 0.0 0.0-0.19 % White Cell Morphology Comment See comments Sodium Level 139 136-145 mmol/L Potassium Level 4.0 3.5-5.1 mmol/L Chloride Level 100 L 101-111 mmol/L Carbon Dioxide Level 33 H 21-32 mmol/L Blood Urea Nitrogen 10 7-18 mg/dL Creatinine 0.8 0.5-1.3 mg/dL Glomerular Filtration Rate Calc 119 >90 mL/min Random Glucose 116 H 70-105 mg/dL Total Calcium 9.5 8.5-10.1 mg/dL Lipase 22 16-77 U/L Current Medications Medications (Trade) Dose Ordered Sig/Nina Route PRN Reason Start Time Stop Time Status Last Admin Dose Admin Acetaminophen (TYLenol 325MG TAB) 650 mg Q6H PRN PO MILD PAIN (1-3) 01/09/25 15:00 02/08/25 14:59 Ketorolac Tromethamine (toRADol) 15 mg Q8H PRN IV MODERATE PAIN (4-6) 01/09/25 15:30 01/11/25 15:30 UNV Lactated Ringer's 1,000 ml @ 80 mls/hr [id number] IV 01/09/25 15:00 02/08/25 14:59 Ondansetron HCl (zoFRAN 4MG INJ) 4 mg Q6H PRN IVP NAUSEA/VOMITING 01/09/25 15:00 02/08/25 14:59 Pantoprazole Sodium (PROTonix 40MG INJ) 40 mg Q24H IVP 01/09/25 15:00 02/08/25 14:59 Piperacillin Sod/ Tazobactam Sod (Zosyn 3.375gm+NS 50ml) 3.375 gm Q8H IVPB 01/09/25 19:00 01/19/25 18:59 Sodium Chloride (NS 50ml) 50 ml AD IV 01/09/25 19:00 02/08/25 18:59 Thiamine HCl (Vitamin B-1) 100 mg Q24H IVP 01/09/25 15:00 02/08/25 14:59 DIAGNOSTICS / RADIOLOGY: SERVICE 1331 REASON: Adominal Pain ORDERING PHYSICIAN: RACIEL MOY NP PROCEDURE: ABDRUQLTD - US ABDOMINAL RUQ\LTD ULTRASOUND ABDOMEN LIMITED INDICATION: Right upper abdominal pain COMPARISON: None FINDINGS: The liver is enlarged and increased in echogenicity; no focal lesion demonstrated. Main portal vein is patent, and normal direction of vascular flow demonstrated. Liver length is measured at 19.3 cm. The common bile duct diameter measures 6.0 mm. Gallbladder is distended. Gallbladder is filled with sludge and stones, but no pericholecystic fluid demonstrated. No sonographic Deleon's sign elicited by the ultrasound tube making machine operator. Wall thickness measures 7.0 mm. Pancreas is obscured by overlying bowel gas. The right kidney measures 10.2 x 4.8 x 5.1 cm,and is normal in echogenicity, without evidence for hydronephrosis.No shadowing stones demonstrated. No free fluid demonstrated. IMPRESSION: Limitations as reported. Cholelithiasis without evidence for cholecystitis. If clinical suspicion persists, further evaluation with nuclear medicine hepatobiliary scan is recommended. Findings suggesting hepatomegaly and hepatic steatosis or other underlying hepatocellular disease process. It DICTATED BY: YOEL ALVARENGA MD DATE: 01/09/25 1428 ELECTRONICALLY SIGNED BY: YOEL ALVARENGA MD DATE: 01/09/25 1432 SERVICE [id number] REASON: Left upper and lower quadrant pain tenderness ORDERING PHYSICIAN: RACIEL MOY NP PROCEDURE: ABD PEL W - CT ABDOMEN/PELVIS W/CONTRAST CT ABDOMEN WITH CONTRAST. CT PELVIS WITH CONTRAST INDICATION: Left upper and lower abdominal pain with tenderness TECHNIQUE: Routine transaxial images using 5 mm slice thickness were obtained after the intravenous infusion of 75 mL of Omnipaque 350 without adverse effects. Oral contrast was not administered. Rectal contrast was not administered. Coronal and sagittal reformatted images acquired for interpretation. CT was performed with one or more of the following dose reduction techniques: Automated exposure control, adjustment of the mA and/or kV according to patient size, or use of iterative reconstruction technique. COMPARISON: None FINDINGS: ABDOMEN: Mild bilateral gynecomastia for which the differential is broad. Heart size is normal. Visible lung bases are clear. The liver is normal in size and smooth in contour without lesions or biliary duct dilation. The spleen is normal in size without lesions. Gallbladder fundus is trace pericholecystic fluid suspected. Filled with peripherally having calcific stones The pancreas appears normal without pancreatic duct dilation. The adrenal glands appear normal. Both kidneys appear unremarkable. Cortical nephrograms are symmetric and normal in appearance bilaterally. No evidence for intra-abdominal free air or organized fluid collection. No retrocrural, intraabdominal, or retroperitoneal lymphadenopathy identified. No aortic aneurysmal dilation or dissection identified. PELVIS: No evidence for free air or organized pelvic fluid collection. No significant pelvic adenopathy detected. Visualized small and large bowel loops appear unremarkable. Terminal ileum appears normal. The appendix appears normal. The urinary bladder appears unremarkable. Visible osseous structures are intact. IMPRESSION: Sonographic imaging was not available prior to this study. Findings suggesting acute calculus cholecystitis. DICTATED BY: YOEL ALVARENGA MD DATE: 01/09/25 1323 ELECTRONICALLY SIGNED BY: YOEL ALVARENGA MD DATE: 01/09/25 1327 ASSESSMENT: Symptomatic biliary colic with multiple cholelithiasis, POA Suspected acute cholecystitis, POA Leukocytosis, POA Dehydration, POA History of long-term cocaine use disorder, (Last cocaine use, 2 days ago, 01/07/25) POA History of tobacco use disorder, POA Obesity, POA PLAN: Patient will be admitted to medical-surgical floor under telemetry monitoring Patient will be kept strictly NPO We will start IV fluids with LR at 80 mL/hour Broad-spectrum antibiotics with IV Zosyn We will obtain a liver function tests, blood cultures given leukocytosis and underlying history of illicit drug use We will obtain HIDA scan to confirm findings of acute cholecystitis Consultation has been requested with General surgery with Dr. Brewer from the ER Patient was started on IV Protonix, SCDs for DVT prophylaxis Discussed patient at length to quit smoking and cocaine use. Discussed with patient about long-term risk of tobacco and cocaine use not limited to heart failure, cardiomyopathy, endocarditis, stroke, impaired postsurgical wound healing etc. patient verbalized that he will work on quitting Date of service: 01/09/2025 Plan of care was discussed with patient at bedside, Fidencio Domingo MD Advanced Care Planning: Which of the following were discussed: Hospice care: Yes __ No _X_ Therapeutic options: Yes _X_ No __ Advance directives: Yes _X_ No __ Other discussions: Discussed with who?: Patient Voluntary nature of this service was explained to the patient? Yes _x_ No __ Amount of time spent: 20 minutes FIDENCIO DOMINGO MD Jan 09, 2025 15:22
[2025-01-09] MEDS: LACTATED RINGERS 1000ML 1,000 ML IV SCH (15:31)
[2025-01-09] MEDS: THIAMINE HCL 100 MG/ML 2ML VIAL IVP SCH (15:33)
[2025-01-09] MEDS: PANTOPrazole 40 MG/VIAL IVP SCH (15:33)
--- NOTE | 2025-01-09 15:37 | HMCIMG ---
PORTABLE CHEST RADIOGRAPH INDICATION: hx of cocaine use, assess for any significant infiltrates COMPARISON: None FINDINGS: Heart size is normal. The pulmonary vascularity and akanksha appear normal. No abnormal pulmonary parenchymal opacity or consolidation identified. No significant pleural effusion noted. No pneumothorax detected. IMPRESSION: No radiographic evidence for any acute cardiopulmonary process.
[2025-01-09 15:40] LABS: INR 0.98 (0.85-1.15); PROTHROMBIN TIME 10.4 SEC (9.6-11.6)
[2025-01-09 15:42] LABS: PARTIAL THROMBOPLASTIN TIME 29.3 SEC (26.3-35.5)
[2025-01-09 15:46] LABS: HEMOGLOBIN A1C 5.2 % (4.0-6.0)
[2025-01-09 15:56] LABS: AMPHET/METH SCREEN,URINE NEGATIVE (NEGATIVE); BARBITURATE SCREEN, URINE NEGATIVE (NEGATIVE); BENZODIAZEPINES SCREEN,URINE NEGATIVE (NEGATIVE); CANNABINOID SCREEN,URINE POSITIVE (NEGATIVE); COCAINE SCREEN,URINE POSITIVE (NEGATIVE); OPIATE SCREEN,URINE NEGATIVE (NEGATIVE); PHENCYCLIDINE SCREEN,URINE NEGATIVE (NEGATIVE)
[2025-01-09 16:18] LABS: BILIRUBIN,DIRECT 2.1 mg/dL (0.0-0.3); BILIRUBIN,TOTAL 2.8 mg/dL (0.2-1.0); THYROID STIMULATING HORMONE 0.9 uIU/mL (0.36-3.74)
[2025-01-09 17:05] VITALS: O2SAT 99
[2025-01-09 17:35] VITALS: BP 160/84; PULSE 77; RESP 17; TEMP 98.1
[2025-01-09] MEDS ORDERED: hydrALAZine 20MG/ML VIAL IV PRN (18:30)
[2025-01-09] MEDS: ZOSYN 3.375GM +NS 50ML IVPB SCH (18:48)
[2025-01-09] MEDS ORDERED: 0.9%NACL 50ML IV SCH (19:00)
[2025-01-09 20:00] VITALS: BP 141/87; PULSE 93; RESP 17; TEMP 98
[2025-01-09 20:44] VITALS: O2SAT 96
[2025-01-10] VITALS (25 sets, daily range): BP systolic 98–128; BP diastolic 56–82; PULSE 51–101; RESP 15–18; TEMP 97.4–98.3; O2SAT 96–97
[2025-01-10 06:22] LABS: BASOPHILS # (AUTO) 0.03 K/uL (0.00-0.20); BASOPHILS % (AUTO) 0.4 % (0.0-5.0); EOSINOPHILS # (AUTO) 0.11 K/uL (0.00-0.70); EOSINOPHILS % (AUTO) 1.3 % (0.0-8.0); HEMATOCRIT 40.2 % (42-54); IMMATURE GRANULOCYTE ABSOLUTE 0.08 K/uL (0-1); LYMPHOCYTES # (AUTO) 1.6 K/uL (1.0-4.8); LYMPHOCYTES % (AUTO) 18.1 % (21.0-51.0); MEAN CORPUSCULAR HEMOGLOBIN 29.3 pg (27.0-33.0); MEAN CORPUSCULAR HGB CONC 32.1 g/dL (32.0-36.0); MEAN CORPUSCULAR VOLUME 91.4 fL (79-99); MONOCYTES # (AUTO) 0.7 K/uL (0.1-1.0); NEUTROPHILS # (AUTO) 6.1 K/uL (1.8-7.7); NEUTROPHILS % (AUTO) 71.3 % (40.0-77.0); PLATELET COUNT (AUTO) 242 K/uL (130-400); RED CELL DISTRIBUTION WIDTH 13.2 % (11.0-15.5); WHITE BLOOD COUNT (AUTO) 8.5 K/uL (4.8-10.8)
[2025-01-10 06:33] LABS: INR 1.07 (0.85-1.15); PROTHROMBIN TIME 11.3 SEC (9.6-11.6)
[2025-01-10 06:37] LABS: ALBUMIN 2.7 g/dL (3.5-5.0); BILIRUBIN,DIRECT 4.6 mg/dL (0.0-0.3); BILIRUBIN,TOTAL 5.3 mg/dL (0.2-1.0); CREATININE 0.8 mg/dL (0.5-1.3); POTASSIUM 3.8 mmol/L (3.5-5.1); TOTAL PROTEIN, SERUM 6.1 g/dL (6.0-8.3)
--- NOTE | 2025-01-10 08:05 | NUR ---
HIDA SCAN RESULTS SPOKE WITH KINGSLEY FROM RADIOLOGY PER THE REQUEST OF DR. SHERIDAN. NOTIFIED RADIOLOGY THAT DR. SHERIDAN NEEDED A STAT READING OF THE HIDA SCAN DONE LAST NIGHT. 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
--- NOTE | 2025-01-10 08:20 | NUR ---
SPOKE WITH DR. SHERIDAN REGARDING HIDA SCAN RESULTS. PER DR. SHERIDAN, PATIENT'S LAPAROSCOPIC CHOLECYSTECTOMY WILL BE PLACED ON HOLD UNTIL GASTROENTEROLOGY IS CONSULTED TO COME AND EVALUATE THE PATIENT.
--- NOTE | 2025-01-10 08:24 | HMCIMG ---
HEPATOBILIARY SCAN INDICATION: Right upper abdominal pain COMPARISON: None RADIOPHARMACEUTICAL: Tc99m Choletec DOSE: 6.5 mCi given IV. TECHNIQUE: Abdominal functional images were obtained and submitted for interpretation. FINDINGS/IMPRESSION: EXAMINATION WAS ORDERED A ROUTINE STUDY. Functional images obtained up to 60 minutes only, but showed no radiotracer transit into the intestinal system or any accumulation of activity within the gallbladder. These findings are compatible with acute cholecystitis an possible extrahepatic biliary obstruction.
--- NOTE | 2025-01-10 08:56 | NUR ---
SPOKE WITH DR. CHOW'S ANSWERING SERVICE REGARDING NEW GASTROENTEROLOGY CONSULT. PROVIDED RELEVANT INFORMATION AND CALL BACK NUMBER TO ANSWERING SERVICE. PER ANSWERING SERVICE, INFORMATION WILL BE RELAYED AND DR. CHOW WILL CALL BACK WHEN AVAILABLE. PENDING CALL BACK FROM DR. CHOW.
--- NOTE | 2025-01-10 09:06 | CONS ---
HISTORY OF PRESENT ILLNESS: The patient is a 34-year-old, white male with a history of cocaine abuse, recently incarcerated, who was admitted complaining of abdominal pain. The patient was seen earlier this month, complaining of the same symptoms at another hospital and came in over the weekend complaining of right upper quadrant pain. The patient denies any other medical history, except for cocaine and marijuana use. ALLERGIES: He has no known drug allergies. PHYSICAL EXAMINATION: GENERAL: The patient is awake, alert, and oriented. He is morbidly obese. VITAL SIGNS: Stable. CHEST: Clear. ABDOMEN: Soft, nontender, no guarding, no rebound. EXTREMITIES: Show no edema. LABORATORY DATA: Patient's initial labs showed a white count of 17, it is down to 8 today. Chemistry, SMA-7 is unremarkable; however, LFTs are markedly elevated with a total bilirubin of 5.3, a direct bilirubin of 4.6, an AST of 179, and ALT of 362. INR is 1.07. IMAGING DATA: Images show ultrasound gallbladder distended, filled with stones and sludge but no pericholecystic fluid. HIDA scan was performed yesterday prior to LFTs and this shows nonvisualization of gallbladder; however, if the common duct is blocked, this may not be an accurate representation. ASSESSMENT AND PLAN: At this point, the patient was scheduled for surgery this morning; however, this will be put on hold until Gastroenterology evaluate sent for a possible endoscopic retrograde cholangiopancreatography. We will follow with you. TID: [id number] RECEIPT: [id number]
--- NOTE | 2025-01-10 09:51 | PN ---
[facility] PROGRESS NOTE Date of Service: Jan 10, 2025 Time of Service: 09:42 SUBJECTIVE: [ ] This is a 34-year-old was admitted on 01/09/2025 with chief complaints of left upper quadrant abdominal pain associated with nausea and vomiting. ER workup was consistent with acute cholecystitis biliary colic with multiple cholelithiasis, GI was consulted for possible ERCP general surgeon we will wait most likely lap keyonna tomorrow. Patient was made aware verbalized understanding. REVIEW OF SYSTEMS CONSTITUTIONAL: Denies fevers, chills, or night sweats. No unintentional weight loss reported. NEUROLOGICAL: Denies headache, amaurosis fugax, motor weakness, sensory deficit, vertigo/spinning sensation, gait abnormalities, or tremors. ENT: No hearing loss, otalgia, otorrhea, rhinitis, rhinorrhea, hoarseness, or sore throat. CARDIOVASCULAR: Denies any exertional angina, dyspnea on exertion, orthopnea, paroxysmal nocturnal dyspnea, palpitations, life-threatening arrhythmias, claudication. PULMONARY: Denies any shortness of breath, cough, phlegm/sputum, hemoptysis, pleuritic chest pain. SLEEP: Denies morning headaches, daytime somnolence or napping. Denies difficulty falling asleep, staying asleep, waking from sleep. Denies knowledge of snoring. GASTROINTESTINAL: Epigastric abdominal pain with associated nausea and vomiting, chronic history of left upper quadrant pain for about 10 years GENITOURINARY: Denies frequency, urgency, nocturia, hematuria or incontinence (Storage/Irritative symptoms.) Low urinary stream, straining to void, urinary intermittency or hesitancy, splitting of the voiding stream, terminal dribbling. ENDOCRINOLOGIC: Denies polyuria, polydipsia, polyphagia or heat/cold intolerances. HEMATOLOGIC: Denies thrombophilia/previous clots, or coagulopathy/bleeding disorders. ONCOLOGIC: Denies personal history of malignancy. DERMATOLOGIC: Denies rashes or pruritus. PSYCHIATRIC: Denies any suicidal or homicidal ideation. Denies hallucinations. PHYSICAL EXAM GENERAL APPEARANCE: The patient is awake, alert, and oriented, in no acute cardiopulmonary distress. NEUROLOGICAL: Cranial nerves II-XII grossly intact. Motor is 5/5 in bilateral upper and lower extremities proximal to distal. No sensory deficits. HEENT: Face is symmetric. Pupils are equal and reactive. Extraocular movements are intact. NECK: Supple. No JVD. No thyromegaly. No submental, submandibular, pre- /postauricular, occipital or supraclavicular lymphadenopathy. CHEST: Normal chest expansion. No Telemetry. LUNGS: Absence of any rales, rhonchi or any wheezing. CARDIOVASCULAR: Regular. S1 and S2 normal. No appreciable rubs, murmurs or gallops. ABDOMEN: Soft, mild tenderness to palpation of the epigastric and left upper quadrant region, Deleon's sign negative, patient did report that he received IV morphine prior : Deferred. No Curtis. EXTREMITIES: Non-edematous and not cyanotic. No clubbing. Good capillary refill. SKIN: No skin breakdown. Vital Signs (last 8hr) Date Time Temp Pulse Resp B/P (MAP) Pulse Ox O2 Delivery O2 Flow Rate FiO2 01/10/25 08:00 97.9 53 17 105/64 97 Room Air 01/10/25 04:00 98.2 65 16 98/60 96 Room Air 21 LABS: Laboratory: Test 01/10/25 06:17 01/10/25 05:17 01/09/25 17:00 01/09/25 12:10 Range/Units White Blood Count 8.5 # 4.8-10.8 K/uL Red Blood Count 4.40 L 4.50-6.20 MIL/uL Hemoglobin 12.9 L 14.0-18.0 g/dL Hematocrit 40.2 L 42-54 % Mean Corpuscular Volume 91.4 79-99 fL Mean Corpuscular Hemoglobin 29.3 27.0-33.0 pg Mean Corpuscular Hemoglobin Concent 32.1 32.0-36.0 g/dL Red Cell Distribution Width 13.2 11.0-15.5 % Platelet Count 242 # 130-400 K/uL Mean Platelet Volume 9.4 7.5-10.5 fL Immature Granulocyte % (Auto) 0.9 0-1 % Neutrophils (%) (Auto) 71.3 40.0-77.0 % Lymphocytes (%) (Auto) 18.1 L 21.0-51.0 % Monocytes (%) (Auto) 8.0 3.0-13.0 % Eosinophils (%) (Auto) 1.3 0.0-8.0 % Basophils (%) (Auto) 0.4 0.0-5.0 % Neutrophils # (Auto) 6.1 1.8-7.7 K/uL Lymphocytes # (Auto) 1.6 1.0-4.8 K/uL Monocytes # (Auto) 0.7 0.1-1.0 K/uL Eosinophils # (Auto) 0.11 0.00-0.70 K/uL Basophils # (Auto) 0.03 0.00-0.20 K/uL Absolute Immature Granulocyte (auto 0.08 0-1 K/uL Nucleated Red Blood Cells 0.0 0.0-0.19 % Prothrombin Time 11.3 9.6-11.6 SEC Prothromb Time International Ratio 1.07 0.85-1.15 Sodium Level 138 136-145 mmol/L Potassium Level 3.8 3.5-5.1 mmol/L Chloride Level 104 101-111 mmol/L Carbon Dioxide Level 28 21-32 mmol/L Blood Urea Nitrogen 7 7-18 mg/dL Creatinine 0.8 0.5-1.3 mg/dL Glomerular Filtration Rate Calc 119 >90 mL/min Random Glucose 83 70-105 mg/dL Total Calcium 8.2 L 8.5-10.1 mg/dL Total Bilirubin 5.3 #H 0.2-1.0 mg/dL Direct Bilirubin 4.6 #H 0.0-0.3 mg/dL Aspartate Amino Transf (AST/SGOT) 179 H 10-37 U/L Alanine Aminotransferase (ALT/SGPT) 362 #H 12-78 U/L Alkaline Phosphatase 166 H 50-136 U/L Total Protein 6.1 # 6.0-8.3 g/dL Albumin 2.7 #L 3.5-5.0 g/dL Whole Blood Glucose 92 70-110 MG/DL Total Creatine Kinase 96 21-232 U/L Troponin I High Sensitivity 6.6 4-75 ng/L B-Type Natriuretic Peptide 17 0-100 pg/mL White Cell Morphology Comment See comments Erythrocyte Sedimentation Rate 25 H 0-15 MM/HR Activated Partial Thromboplast Time 29.3 26.3-35.5 SEC Hemoglobin A1c 5.2 4.0-6.0 % Estimated Average Glucose (eAG) 103 70-126 mg/dL C-Reactive Protein, Quantitative 27.10 H 0.5-3.0 mg/L Lipase 22 16-77 U/L Procalcitonin 0.30 0.05-0.5 ng/mL Thyroid Stimulating Hormone (TSH) 0.90 0.36-3.74 uIU/mL Test 01/09/25 12:03 Range/Units Urine Opiates Screen NEGATIVE NEGATIVE Urine Barbiturates Screen NEGATIVE NEGATIVE Urine Phencyclidine Screen NEGATIVE NEGATIVE Urine Amphetamines Screen NEGATIVE NEGATIVE Urine Benzodiazepines Screen NEGATIVE NEGATIVE Urine Cocaine Screen POSITIVE H NEGATIVE Urine Marijuana (THC) Screen POSITIVE H NEGATIVE Current Medications Medications (Trade) Dose Ordered Sig/Nina Route PRN Reason Start Time Stop Time Status Last Admin Dose Admin Acetaminophen (TYLenol 325MG TAB) 650 mg Q6H PRN PO MILD PAIN (1-3) 01/09/25 15:00 02/08/25 14:59 Hydralazine HCl (APRESOLine 20MG INJ) 5 mg Q4H PRN IV ADMINISTER FOR SBP > 160 01/09/25 18:30 02/08/25 18:29 Ketorolac Tromethamine (toRADol) 15 mg Q8H PRN IV MODERATE PAIN (4-6) 01/09/25 15:30 01/11/25 15:30 Lactated Ringer's 1,000 ml @ 80 mls/hr [id number] IV 01/09/25 15:00 02/08/25 14:59 01/09/25 15:31 80 MLS/HR Morphine Sulfate (morPHINE 2MG SYG) 2 mg Q6H PRN IVP SEVERE PAIN (7-10) 01/09/25 15:30 01/16/25 15:29 Ondansetron HCl (zoFRAN 4MG INJ) 4 mg Q6H PRN IVP NAUSEA/VOMITING 01/09/25 15:00 02/08/25 14:59 Pantoprazole Sodium (PROTonix 40MG INJ) 40 mg Q24H IVP 01/09/25 15:00 02/08/25 14:59 01/09/25 15:33 40 MG Piperacillin Sod/ Tazobactam Sod (Zosyn 3.375gm+NS 50ml) 3.375 gm Q8H IVPB 01/09/25 19:00 01/19/25 18:59 01/10/25 02:05 3.375 GM Sodium Chloride (NS 50ml) 50 ml AD IV 01/09/25 19:00 02/08/25 18:59 Thiamine HCl (Vitamin B-1) 100 mg Q24H IVP 01/09/25 15:00 02/08/25 14:59 01/09/25 15:33 100 MG DIAGNOSTICS / RADIOLOGY: [ ] ASSESSMENT: Symptomatic biliary colic with multiple cholelithiasis, POA possible extrahepatic biliary obstruction. Evidence by HIDA scan Symptomatic acute cholecystitis, POA Leukocytosis, POA Dehydration, POA History of long-term cocaine use disorder, (Last cocaine use, 2 days ago, 01/07/25) POA History of tobacco use disorder, POA Obesity, POA PLAN: admit: medical-surgical floor under telemetry monitoring Consultation has been requested with General surgery with Dr. Brewer and gastroenterology diet: NPO IVF's; LR at 80 mL/hour Antibiotic: Broad-spectrum antibiotics with IV Zosyn Procedure lap keyonna possible scheduled for tomorrow in possible ERCP GI consulted waiting further recommendations We will continue to monitor LFTs. Encourage early ambulation and usage of IS postop Fall precautions continue IV Protonix, SCDs for DVT prophylaxis Pain management morphine2 mg IV as directed and Tylenol No. 3 as directed. Counseling provided, smoking cessation and cocaine use community resources provided. All questions addressed Further orders as per response To treatment ATTESTATION BY PHYSICIAN I have seen and examined the patient. I reviewed the documentation, medical decision making, and treatment plan as noted by the mid-level provider above. I agree with the findings and plan of care. MARYCHUY MADERA MD, ELIZABETH NP Jan 10, 2025 09:51
[2025-01-10] MEDS ORDERED: acetaMINOPHEN WITH coDEINE 1 TAB TAB PO PRN (10:00)
[2025-01-10] MEDS ORDERED: PoTASSium chloRIDE 20MEQ/100ML 100 ML IV PRN (10:00)
[2025-01-10] MEDS ORDERED: PoTASSium chl 10% ELIXIR 20MEQ 20 MEQ/15 ML UDCUP PO PRN (10:00)
--- NOTE | 2025-01-10 11:00 | NUR ---
ZOSYN DOSE HELD AT THIS TIME. PATIENT IS OFF UNIT AND IN PROCEDURE.
[2025-01-10] MEDS ORDERED: FENTanyl CITRate PF 50 MCG/1 ML 5ML AMP IV ONE (11:42)
[2025-01-10] MEDS ORDERED: MIDAZOLAM HCL 1 MG/ML 2ML VIAL ONE (11:42)
[2025-01-10] MEDS ORDERED: proPOFol 10 MG/ML 20ML VIAL IV ONE (11:42)
[2025-01-10] MEDS ORDERED: rocuRONium bROMide 10MG/1ML 5ML VL ONE (11:42)
[2025-01-10] MEDS ORDERED: ondanSETRON 4MG INJ ONE (11:47)
[2025-01-10] MEDS ORDERED: IOHEXOL-350 50ML VIAL IV ONE (11:56)
[2025-01-10] MEDS ORDERED: ATROPINE 1MG SYG IVP ONE (12:47)
[2025-01-10] MEDS ORDERED: GLYCOPYRROLATE 0.2 MG/ML 5 ML VIAL ONE (13:05)
[2025-01-10] MEDS ORDERED: NEOSTIGMINE METHYLSULFATE 1MG/ML IV ONE (13:05)
--- NOTE | 2025-01-10 17:09 | HMCIMG ---
INTRAOPERATIVE FLUOROSCOPIC GUIDANCE UP TO 1 HOUR. IMPRESSION: Intraoperative fluoroscopic guidance was provided for ERCP, which was performed by Dr. Conteh. Total fluoroscopy time was 3 minutes 26 seconds, and administered dose, 88.5 mGy. A total of 9 spot images obtained. Please refer to the procedure note for further details.
[2025-01-10] MEDS: NICOTINE 7 MG/ 24 HR PATCH TD ONE (18:24)
[2025-01-11] VITALS (29 sets, daily range): BP systolic 101–152; BP diastolic 52–94; PULSE 55–134; RESP 15–20; TEMP 97.7–98.6; O2SAT 96–97
[2025-01-11] MEDS: ketOROlac 15MG/ML VIAL (15MG/ML) IV PRN (00:49)
[2025-01-11 06:13] LABS: BASOPHILS # (AUTO) 0.04 K/uL (0.00-0.20); BASOPHILS % (AUTO) 0.5 % (0.0-5.0); EOSINOPHILS # (AUTO) 0.13 K/uL (0.00-0.70); EOSINOPHILS % (AUTO) 1.6 % (0.0-8.0); HEMATOCRIT 41.2 % (42-54); IMMATURE GRANULOCYTE ABSOLUTE 0.12 K/uL (0-1); LYMPHOCYTES # (AUTO) 1.6 K/uL (1.0-4.8); LYMPHOCYTES % (AUTO) 20.3 % (21.0-51.0); MEAN CORPUSCULAR HEMOGLOBIN 29.9 pg (27.0-33.0); MEAN CORPUSCULAR HGB CONC 32.8 g/dL (32.0-36.0); MEAN CORPUSCULAR VOLUME 91.2 fL (79-99); MONOCYTES # (AUTO) 0.6 K/uL (0.1-1.0); MONOCYTES % (AUTO) 6.9 % (3.0-13.0); NEUTROPHILS # (AUTO) 5.5 K/uL (1.8-7.7); NEUTROPHILS % (AUTO) 69.2 % (40.0-77.0); PLATELET COUNT (AUTO) 258 K/uL (130-400); RED BLOOD CELL COUNT(AUTO) 4.52 MIL/uL (4.50-6.20); RED CELL DISTRIBUTION WIDTH 13.1 % (11.0-15.5)
[2025-01-11 06:33] LABS: ALBUMIN 2.7 g/dL (3.5-5.0); BILIRUBIN,TOTAL 4.3 mg/dL (0.2-1.0); CREATININE 0.8 mg/dL (0.5-1.3); MAGNESIUM 2.1 mg/dL (1.80-2.40); POTASSIUM 3.9 mmol/L (3.5-5.1); TOTAL PROTEIN, SERUM 6.3 g/dL (6.0-8.3)
[2025-01-11] MEDS: morPHINE 2 MG SYG IVP PRN (06:42)
--- NOTE | 2025-01-11 07:22 | PN ---
GASTROENTEROLOGY PROGRESS NOTE Date of Visit: Jan 11, 2025 Time of Visit: 07:22 Events / Notes: [ ] Review of Systems: CONSTITUTIONAL: No malaise or change in sensation of wellbeing. ENMT: No rhinorrhea, otorrhea, sinus pain, ear ache. CARDIOVASCULAR: No angina, palpitations, orthopnea or paroxysmal dyspnea. RESPIRATORY: No SOB. GASTROINTESTINAL: No abdominal pain, nausea, vomiting, diarrhea, hematemesis, melena or change in the patient's habitual bowel movements consistency/number. GENITOURINARY: No dysuria, hematuria or change in bladder continence. MUSCULOSKELETAL: No new muscle pain or decrease in muscular strength. No new joint swelling, redness or tenderness. SKIN: No new rash. Physical Exam: GEN: Awake, alert, oriented in person, time and place, and in no acute distress. HEENT: No sinus tenderness. Tympanic membranes were not examined. No rhinorrhea. Oral pharyngeal mucosa is pink, moist and within normal limits. Neck is supple with no cervical lymphadenopathy, thyromegaly or JVD. CHEST: Inspection, palpation and percussion of the chest were unremarkable. Lung auscultation revealed normal breath sounds bilaterally. CARDIAC: PMI is within normal limits. Heart sounds are regular. Normal S1, S2. No gallop or murmur. ABD: Soft, non-tender and not distended. No peritoneal signs on palpation. No organomegaly. Normal bowel sounds. EXT: No cyanosis or clubbing. No edema. SKIN: Intact. No rashes. JOINTS: No evidence of synovitis or acute arthritis. NEURO: Alert and oriented to name, place and person. Cranial nerve examination is unremarkable. No focal motor deficits. Normal speech. Gait is normal. Strength is normal. Vital Signs (last 8hr) Date Time Temp Pulse Resp B/P (MAP) Pulse Ox O2 Delivery O2 Flow Rate FiO2 01/11/25 04:00 98.6 55 16 101/65 94 Room Air 21 01/11/25 00:00 98.4 63 16 112/61 97 Room Air 21 Laboratory: [ ] Laboratory: Test 01/11/25 06:07 01/10/25 06:17 01/10/25 05:17 01/09/25 17:00 Range/Units White Blood Count 8.0 4.8-10.8 K/uL Red Blood Count 4.52 4.50-6.20 MIL/uL Hemoglobin 13.5 L 14.0-18.0 g/dL Hematocrit 41.2 L 42-54 % Mean Corpuscular Volume 91.2 79-99 fL Mean Corpuscular Hemoglobin 29.9 27.0-33.0 pg Mean Corpuscular Hemoglobin Concent 32.8 32.0-36.0 g/dL Red Cell Distribution Width 13.1 11.0-15.5 % Platelet Count 258 130-400 K/uL Mean Platelet Volume 9.5 7.5-10.5 fL Immature Granulocyte % (Auto) 1.5 H 0-1 % Neutrophils (%) (Auto) 69.2 40.0-77.0 % Lymphocytes (%) (Auto) 20.3 L 21.0-51.0 % Monocytes (%) (Auto) 6.9 3.0-13.0 % Eosinophils (%) (Auto) 1.6 0.0-8.0 % Basophils (%) (Auto) 0.5 0.0-5.0 % Neutrophils # (Auto) 5.5 1.8-7.7 K/uL Lymphocytes # (Auto) 1.6 1.0-4.8 K/uL Monocytes # (Auto) 0.6 0.1-1.0 K/uL Eosinophils # (Auto) 0.13 0.00-0.70 K/uL Basophils # (Auto) 0.04 0.00-0.20 K/uL Absolute Immature Granulocyte (auto 0.12 0-1 K/uL Nucleated Red Blood Cells 0.0 0.0-0.19 % Sodium Level 135 L 136-145 mmol/L Potassium Level 3.9 3.5-5.1 mmol/L Chloride Level 102 101-111 mmol/L Carbon Dioxide Level 28 21-32 mmol/L Blood Urea Nitrogen 7 7-18 mg/dL Creatinine 0.8 0.5-1.3 mg/dL Glomerular Filtration Rate Calc 119 >90 mL/min Random Glucose 91 70-105 mg/dL Total Calcium 8.3 L 8.5-10.1 mg/dL Magnesium Level 2.10 1.80-2.40 mg/dL Total Bilirubin 4.3 H 0.2-1.0 mg/dL Aspartate Amino Transf (AST/SGOT) 112 H 10-37 U/L Alanine Aminotransferase (ALT/SGPT) 294 H 12-78 U/L Alkaline Phosphatase 178 H 50-136 U/L Total Protein 6.3 6.0-8.3 g/dL Albumin 2.7 L 3.5-5.0 g/dL Amylase Level 342 H 25-115 U/L Lipase 2699 *H 16-77 U/L Prothrombin Time 11.3 9.6-11.6 SEC Prothromb Time International Ratio 1.07 0.85-1.15 Direct Bilirubin 4.6 #H 0.0-0.3 mg/dL Whole Blood Glucose 92 70-110 MG/DL Total Creatine Kinase 96 21-232 U/L Troponin I High Sensitivity 6.6 4-75 ng/L B-Type Natriuretic Peptide 17 0-100 pg/mL Test 01/09/25 12:10 01/09/25 12:03 Range/Units White Cell Morphology Comment See comments Erythrocyte Sedimentation Rate 25 H 0-15 MM/HR Activated Partial Thromboplast Time 29.3 26.3-35.5 SEC Hemoglobin A1c 5.2 4.0-6.0 % Estimated Average Glucose (eAG) 103 70-126 mg/dL C-Reactive Protein, Quantitative 27.10 H 0.5-3.0 mg/L Procalcitonin 0.30 0.05-0.5 ng/mL Thyroid Stimulating Hormone (TSH) 0.90 0.36-3.74 uIU/mL Urine Opiates Screen NEGATIVE NEGATIVE Urine Barbiturates Screen NEGATIVE NEGATIVE Urine Phencyclidine Screen NEGATIVE NEGATIVE Urine Amphetamines Screen NEGATIVE NEGATIVE Urine Benzodiazepines Screen NEGATIVE NEGATIVE Urine Cocaine Screen POSITIVE H NEGATIVE Urine Marijuana (THC) Screen POSITIVE H NEGATIVE Current Medications Medications (Trade) Dose Ordered Sig/Nina Route PRN Reason Start Time Stop Time Status Last Admin Dose Admin Acetaminophen (TYLenol 325MG TAB) 650 mg Q6H PRN PO MILD PAIN (1-3) 01/09/25 15:00 02/08/25 14:59 Acetaminophen/ Codeine Phosphate (TYLenol-coDEINE TAB) 1 tab Q4H PRN PO MODERATE PAIN (4-6) 01/10/25 10:00 02/09/25 09:59 Hydralazine HCl (APRESOLine 20MG INJ) 5 mg Q4H PRN IV ADMINISTER FOR SBP > 160 01/09/25 18:30 02/08/25 18:29 Ketorolac Tromethamine (toRADol) 15 mg Q8H PRN IV MODERATE PAIN (4-6) IF NPO 01/09/25 15:30 01/11/25 15:30 01/11/25 00:49 15 MG Lactated Ringer's 1,000 ml @ 80 mls/hr [id number] IV 01/09/25 15:00 02/08/25 14:59 01/09/25 15:31 80 MLS/HR Magnesium Sulfate 50 ml @ 0 mls/hr PROTOCOL PRN IV low mag level 01/10/25 10:00 02/09/25 09:59 Morphine Sulfate (morPHINE 2MG SYG) 2 mg Q6H PRN IVP SEVERE PAIN (7-10) 01/09/25 15:30 01/16/25 15:29 01/11/25 06:42 2 MG Ondansetron HCl (zoFRAN 4MG INJ) 4 mg Q6H PRN IVP NAUSEA/VOMITING 01/09/25 15:00 02/08/25 14:59 Pantoprazole Sodium (PROTonix 40MG INJ) 40 mg Q24H IVP 01/09/25 15:00 02/08/25 14:59 01/10/25 15:36 40 MG Piperacillin Sod/ Tazobactam Sod (Zosyn 3.375gm+NS 50ml) 3.375 gm Q8H IVPB 01/09/25 19:00 01/19/25 18:59 01/11/25 02:04 3.375 GM Potassium Chloride 100 ml @ 100 mls/hr AD PRN IV POTASSIUM PROTOCOL 01/10/25 10:00 02/09/25 09:59 Potassium Chloride (K-Dur/Klor-Con 20meq) 20 meq AD PRN PO POTASSIUM PROTOCOL 01/10/25 10:00 02/09/25 09:59 Potassium Chloride (KCl 10% Elixir 20meq/15ml) 20 meq AD PRN PO POTASSIUM PROTOCOL 01/10/25 10:00 02/09/25 09:59 Sodium Chloride (NS 50ml) 50 ml AD IV 01/09/25 19:00 01/11/25 06:26 DC Thiamine HCl (Vitamin B-1) 100 mg Q24H IVP 01/09/25 15:00 02/08/25 14:59 01/10/25 15:37 100 MG Diagnostics / Radiology: [COPY/PASTE HERE IF NO REPORTS PLEASE DELETE SECTION] Assessment: [ ] Plan: [ ] [facility] Jan 11, 2025 07:22
[2025-01-11] MEDS ORDERED: LIDOCAINE PF 100MG/5ML (2%) SYRINGE 5ML ONE (07:31)
[2025-01-11] MEDS ORDERED: BUPIvacaine/PF 0.5% 30ML VIAL ONE (07:31)
[2025-01-11] MEDS ORDERED: dexaMETHasone SOD PHOSPHATE 10MG/ML 1ML VIAL ONE (07:31)
[2025-01-11] MEDS ORDERED: ondanSETRON 4MG INJ ONE (07:31)
[2025-01-11] MEDS ORDERED: FENTanyl CITRate PF 50 MCG/1 ML 2ML VIAL ONE ×4 (07:32→09:36)
[2025-01-11] MEDS ORDERED: SUCCINYLCHOLINE CHLORIDE 20 MG/ML 10 ML VIAL ONE ×2 (07:32→09:22)
[2025-01-11] MEDS ORDERED: GLYCOPYRROLATE 0.2 MG/ML 5 ML VIAL ONE (07:32)
[2025-01-11] MEDS ORDERED: NEOSTIGMINE METHYLSULFATE 1MG/ML IV ONE (07:32)
[2025-01-11] MEDS ORDERED: rocuRONium bROMide 10MG/1ML 5ML VL ONE (07:32)
[2025-01-11] MEDS ORDERED: proPOFol 10 MG/ML 20ML VIAL IV ONE ×2 (07:32→08:49)
[2025-01-11] MEDS ORDERED: MIDAZOLAM HCL 1 MG/ML 2ML VIAL ONE (07:33)
[2025-01-11] MEDS: BUPIvacaine/PF 0.5% 30ML VIAL INJ ONE (08:30)
[2025-01-11] MEDS ORDERED: EPINEPHrine PF 1MG (1:1,000) 1 MG/ML AMP ONE (08:32)
[2025-01-11] MEDS ORDERED: ATROPINE 1MG SYG IVP ONE (08:32)
--- NOTE | 2025-01-11 09:21 | PN ---
[facility] PROGRESS NOTE Date of Service: Jan 11, 2025 Time of Service: 09:21 SUBJECTIVE: [ ] This is a 34-year-old was admitted on 01/09/2025 with chief complaints of left upper quadrant abdominal pain associated with nausea and vomiting. ER workup was consistent with acute cholecystitis biliary colic with multiple cholelithiasis, GI was consulted for possible ERCP general surgeon we will wait most likely lap keyonna tomorrow. Patient was made aware verbalized understanding. 01/11/25 Patient is a 34-male admitted for acute cholecystitis and suspected extrahepatic biliary obstruction. He underwent laparoscopic cholecystectomy today and ERCP yesterday due to elevated bilirubin, transaminitis, and imaging findings concerning for cholecystitis. Postoperative status patient was examined based side post surgery, is conscious, stable and slowly recovering. Mild postop discomfort but no nausea vomiting or significant pain. No fever chills or shortness of breath. Vital signs are stable postop and blood pressure at 130 5 x 79 mmHg postop dressing appears dry clean and intact. His postop hemoglobin and hematocrit are stable with 14.1 and 44.4. ERCP findings revealed choledocholithiasis found with partial removal accomplished via biliary sphincterotomy no stent was placed. A biliary sphincterotomy was performed. Biliary tree swept, 1 stone was removed. Three stones remain with5 FR by3 cm plastic stent plus 10 FR by 5 cm plastic stent placed in pancreatic biliary duct. Pus seen exiting the ampulla concerns for cholangitis. Recommendations with the removal biliary stent in 4 weeks at repeat ERCP outpatient visit REVIEW OF SYSTEMS CONSTITUTIONAL: Denies fevers, chills, or night sweats. No unintentional weight loss reported. NEUROLOGICAL: Denies headache, amaurosis fugax, motor weakness, sensory deficit, vertigo/spinning sensation, gait abnormalities, or tremors. ENT: No hearing loss, otalgia, otorrhea, rhinitis, rhinorrhea, hoarseness, or sore throat. CARDIOVASCULAR: Denies any exertional angina, dyspnea on exertion, orthopnea, paroxysmal nocturnal dyspnea, palpitations, life-threatening arrhythmias, claudication. PULMONARY: Denies any shortness of breath, cough, phlegm/sputum, hemoptysis, pleuritic chest pain. SLEEP: Denies morning headaches, daytime somnolence or napping. Denies difficulty falling asleep, staying asleep, waking from sleep. Denies knowledge of snoring. GASTROINTESTINAL: Epigastric abdominal pain with associated nausea and vomiting, chronic history of left upper quadrant pain for about 10 years GENITOURINARY: Denies frequency, urgency, nocturia, hematuria or incontinence (Storage/Irritative symptoms.) Low urinary stream, straining to void, urinary intermittency or hesitancy, splitting of the voiding stream, terminal dribbling. ENDOCRINOLOGIC: Denies polyuria, polydipsia, polyphagia or heat/cold intolerances. HEMATOLOGIC: Denies thrombophilia/previous clots, or coagulopathy/bleeding disorders. ONCOLOGIC: Denies personal history of malignancy. DERMATOLOGIC: Denies rashes or pruritus. PSYCHIATRIC: Denies any suicidal or homicidal ideation. Denies hallucinations. PHYSICAL EXAM GENERAL APPEARANCE: The patient is awake, alert, and oriented, in no acute cardiopulmonary distress. NEUROLOGICAL: Cranial nerves II-XII grossly intact. Motor is 5/5 in bilateral upper and lower extremities proximal to distal. No sensory deficits. HEENT: Face is symmetric. Pupils are equal and reactive. Extraocular movements are intact. NECK: Supple. No JVD. No thyromegaly. No submental, submandibular, pre- /postauricular, occipital or supraclavicular lymphadenopathy. CHEST: Normal chest expansion. No Telemetry. LUNGS: Absence of any rales, rhonchi or any wheezing. CARDIOVASCULAR: Regular. S1 and S2 normal. No appreciable rubs, murmurs or gallops. ABDOMEN: Soft, mild tenderness to palpation of the epigastric and left upper quadrant region, Deleon's sign negative, patient did report that he received IV morphine prior : Deferred. No Curtis. EXTREMITIES: Non-edematous and not cyanotic. No clubbing. Good capillary refill. SKIN: No skin breakdown. Vital Signs (last 8hr) Date Time Temp Pulse Resp B/P (MAP) Pulse Ox O2 Delivery O2 Flow Rate FiO2 01/11/25 07:30 97.7 55 16 122/71 96 Room Air 01/11/25 04:00 98.6 55 16 101/65 94 Room Air 21 LABS: Laboratory: Test 01/11/25 06:07 01/10/25 06:17 01/10/25 05:17 01/09/25 17:00 Range/Units White Blood Count 8.0 4.8-10.8 K/uL Red Blood Count 4.52 4.50-6.20 MIL/uL Hemoglobin 13.5 L 14.0-18.0 g/dL Hematocrit 41.2 L 42-54 % Mean Corpuscular Volume 91.2 79-99 fL Mean Corpuscular Hemoglobin 29.9 27.0-33.0 pg Mean Corpuscular Hemoglobin Concent 32.8 32.0-36.0 g/dL Red Cell Distribution Width 13.1 11.0-15.5 % Platelet Count 258 130-400 K/uL Mean Platelet Volume 9.5 7.5-10.5 fL Immature Granulocyte % (Auto) 1.5 H 0-1 % Neutrophils (%) (Auto) 69.2 40.0-77.0 % Lymphocytes (%) (Auto) 20.3 L 21.0-51.0 % Monocytes (%) (Auto) 6.9 3.0-13.0 % Eosinophils (%) (Auto) 1.6 0.0-8.0 % Basophils (%) (Auto) 0.5 0.0-5.0 % Neutrophils # (Auto) 5.5 1.8-7.7 K/uL Lymphocytes # (Auto) 1.6 1.0-4.8 K/uL Monocytes # (Auto) 0.6 0.1-1.0 K/uL Eosinophils # (Auto) 0.13 0.00-0.70 K/uL Basophils # (Auto) 0.04 0.00-0.20 K/uL Absolute Immature Granulocyte (auto 0.12 0-1 K/uL Nucleated Red Blood Cells 0.0 0.0-0.19 % Sodium Level 135 L 136-145 mmol/L Potassium Level 3.9 3.5-5.1 mmol/L Chloride Level 102 101-111 mmol/L Carbon Dioxide Level 28 21-32 mmol/L Blood Urea Nitrogen 7 7-18 mg/dL Creatinine 0.8 0.5-1.3 mg/dL Glomerular Filtration Rate Calc 119 >90 mL/min Random Glucose 91 70-105 mg/dL Total Calcium 8.3 L 8.5-10.1 mg/dL Magnesium Level 2.10 1.80-2.40 mg/dL Total Bilirubin 4.3 H 0.2-1.0 mg/dL Aspartate Amino Transf (AST/SGOT) 112 H 10-37 U/L Alanine Aminotransferase (ALT/SGPT) 294 H 12-78 U/L Alkaline Phosphatase 178 H 50-136 U/L Total Protein 6.3 6.0-8.3 g/dL Albumin 2.7 L 3.5-5.0 g/dL Amylase Level 342 H 25-115 U/L Lipase 2699 *H 16-77 U/L Prothrombin Time 11.3 9.6-11.6 SEC Prothromb Time International Ratio 1.07 0.85-1.15 Direct Bilirubin 4.6 #H 0.0-0.3 mg/dL Whole Blood Glucose 92 70-110 MG/DL Total Creatine Kinase 96 21-232 U/L Troponin I High Sensitivity 6.6 4-75 ng/L B-Type Natriuretic Peptide 17 0-100 pg/mL Test 01/09/25 12:10 01/09/25 12:03 Range/Units White Cell Morphology Comment See comments Erythrocyte Sedimentation Rate 25 H 0-15 MM/HR Activated Partial Thromboplast Time 29.3 26.3-35.5 SEC Hemoglobin A1c 5.2 4.0-6.0 % Estimated Average Glucose (eAG) 103 70-126 mg/dL C-Reactive Protein, Quantitative 27.10 H 0.5-3.0 mg/L Procalcitonin 0.30 0.05-0.5 ng/mL Thyroid Stimulating Hormone (TSH) 0.90 0.36-3.74 uIU/mL Urine Opiates Screen NEGATIVE NEGATIVE Urine Barbiturates Screen NEGATIVE NEGATIVE Urine Phencyclidine Screen NEGATIVE NEGATIVE Urine Amphetamines Screen NEGATIVE NEGATIVE Urine Benzodiazepines Screen NEGATIVE NEGATIVE Urine Cocaine Screen POSITIVE H NEGATIVE Urine Marijuana (THC) Screen POSITIVE H NEGATIVE Current Medications Medications (Trade) Dose Ordered Sig/Nina Route PRN Reason Start Time Stop Time Status Last Admin Dose Admin Acetaminophen (TYLenol 325MG TAB) 650 mg Q6H PRN PO MILD PAIN (1-3) 01/09/25 15:00 02/08/25 14:59 Acetaminophen/ Codeine Phosphate (TYLenol-coDEINE TAB) 1 tab Q4H PRN PO MODERATE PAIN (4-6) 01/10/25 10:00 02/09/25 09:59 Hydralazine HCl (APRESOLine 20MG INJ) 5 mg Q4H PRN IV ADMINISTER FOR SBP > 160 01/09/25 18:30 02/08/25 18:29 Ketorolac Tromethamine (toRADol) 15 mg Q8H PRN IV MODERATE PAIN (4-6) IF NPO 01/09/25 15:30 01/11/25 15:30 01/11/25 00:49 15 MG Lactated Ringer's 1,000 ml @ 80 mls/hr [id number] IV 01/09/25 15:00 02/08/25 14:59 01/09/25 15:31 80 MLS/HR Magnesium Sulfate 50 ml @ 0 mls/hr PROTOCOL PRN IV low mag level 01/10/25 10:00 02/09/25 09:59 Morphine Sulfate (morPHINE 2MG SYG) 2 mg Q6H PRN IVP SEVERE PAIN (7-10) 01/09/25 15:30 01/16/25 15:29 01/11/25 06:42 2 MG Ondansetron HCl (zoFRAN 4MG INJ) 4 mg Q6H PRN IVP NAUSEA/VOMITING 01/09/25 15:00 02/08/25 14:59 Pantoprazole Sodium (PROTonix 40MG INJ) 40 mg Q24H IVP 01/09/25 15:00 02/08/25 14:59 01/10/25 15:36 40 MG Piperacillin Sod/ Tazobactam Sod (Zosyn 3.375gm+NS 50ml) 3.375 gm Q8H IVPB 01/09/25 19:00 01/19/25 18:59 01/11/25 02:04 3.375 GM Potassium Chloride 100 ml @ 100 mls/hr AD PRN IV POTASSIUM PROTOCOL 01/10/25 10:00 02/09/25 09:59 Potassium Chloride (K-Dur/Klor-Con 20meq) 20 meq AD PRN PO POTASSIUM PROTOCOL 01/10/25 10:00 02/09/25 09:59 Potassium Chloride (KCl 10% Elixir 20meq/15ml) 20 meq AD PRN PO POTASSIUM PROTOCOL 01/10/25 10:00 02/09/25 09:59 Sodium Chloride (NS 50ml) 50 ml AD IV 01/09/25 19:00 01/11/25 06:26 DC Thiamine HCl (Vitamin B-1) 100 mg Q24H IVP 01/09/25 15:00 02/08/25 14:59 01/10/25 15:37 100 MG DIAGNOSTICS / RADIOLOGY: PATIENT: SHERYL HARVEY MR#: [id number] : 1990 SEX: M AGE: 34 LOCATION: [facility] ORDER 53 STATUS: ADM IN HEALTH SYSTEM REPORT#: [id number] SERVICE 115 REASON: ERCP ORDERING PHYSICIAN: STACIE SINCLAIR MD PROCEDURE: C ARM - C ARM USAGE INTRAOPERATIVE FLUOROSCOPIC GUIDANCE UP TO 1 HOUR. IMPRESSION: Intraoperative fluoroscopic guidance was provided for ERCP, which was performed by Dr. Conteh. Total fluoroscopy time was 3 minutes 26 seconds, and administered dose, 88.5 mGy. A total of 9 spot images obtained. Please refer to the procedure note for further details. DICTATED BY: YOEL ALVARENGA MD DATE: 01/10/251705 ELECTRONICALLY SIGNED BY: YOEL ALVARENGA MD DATE: 01/10/251708 PATIENT: SHERYL HARVEY MR#: [id number] : 1990 SEX: M AGE: 34 LOCATION: [facility] ORDER 53 STATUS: ADM IN REPORT#: [id number] SERVICE 115 REASON: ERCP ORDERING PHYSICIAN: STACIE SINCLAIR MD PROCEDURE: ERCP - ERCP BILI/PANC DUCT INTRAOPERATIVE FLUOROSCOPIC GUIDANCE UP TO 1 HOUR. IMPRESSION: Intraoperative fluoroscopic guidance was provided for ERCP, which was performed by Dr. Conteh. Total fluoroscopy time was 3 minutes 26 seconds, and administered dose, 88.5 mGy. A total of 9 spot images obtained. Please refer to the procedure note for further details. DICTATED BY: YOEL ALVARENGA MD DATE: 01/10/251705 ELECTRONICALLY SIGNED BY: YOEL ALVARENGA MD DATE: 01/10/251708 [ ] ASSESSMENT: Symptomatic biliary colic with multiple cholelithiasis, POA Suspected acute cholecystitis, POA Leukocytosis, POA Dehydration, POA History of long-term cocaine use disorder, (Last cocaine use, 2 days ago, 01/07/25) POA History of tobacco use disorder, POA Obesity, POA PLAN: Patient will be admitted to medical-surgical floor under telemetry monitoring Postop status, laparoscopic cholecystectomy done today patient is stable and recovering. ERCP performed with biliary sphincterotomy. One stone removed, 3 remaining biliary stents placed For repeat ERCP in 4 weeks for complete stone removal On outpatient basis. Elevated lipase amylase with biliary obstruction. Improvement expected post stone removal. From ampulla concerns for cholangitis broad-spectrum antibiotics needed continue Zosyn Pain and marijuana use history monitor for withdrawal symptoms. Postoperative care monitor vitals q.4h, assess pain nausea signs of infection. Liquid diet only. Maintain strict I/os. IV fluids continue LR at 80 mL/hour for hydration. Pain management Continue acetaminophen 650 mg p.o. q.6h p.r.n.. Continue hydrocodone acetaminophen1 tab p.o. q.4h p.r.n. for moderate pain bracket recording ES. [id number] mg IV q.8h p.r.n.. Morphine2 mg IV p.r.n. if severe pain only. Continue Zosyn 3.375 g IV q.6h for at least48 hours. Monitor electrolytes closely and replace as per facility protocol. DVT prophylaxis and GI prophylaxis should be continued. ATTESTATION BY PHYSICIAN I have seen and examined the patient. I reviewed the documentation, medical decision making, and treatment plan as noted by the resident above. I agree with the findings and plan of care. Dequan Rebolledo MD, RAGHAVA R MD Jan 11, 2025 09:21
[2025-01-11] MEDS ORDERED: metoPROLOL tartRATE 1 MG/ML 5ML VIAL IV ONE (09:22)
[2025-01-11] MEDS: ondanSETRON 4MG INJ ONE (10:22)
[2025-01-11] MEDS: FENTanyl CITRate PF 50 MCG/1 ML 2ML VIAL ONE (10:22)
--- NOTE | 2025-01-11 10:39 | EKG ---
[facility] Test Date: 2025-01-09 Test Time: 15:19:13 Pat Name: SHERYL HARVEY Department: [facility] Room: 321 1 Gender: M Short Goods Drier: [id number] : 1990 Requested By: STACIE SINCLAIR Order Number: [id number] Reading MD: Richard Samayoa Measurements Intervals [place] Rate: 66 P: 19 [place]: 123 QRS: 5 QRSD: 90 T: 52 QT: 405 QTc: 425 Interpretive Statements Sinus rhythm Compared to ECG 03/12/2022 17:28:12 No significant changes Electronically Signed On 01-11-2025 18:54:33 RN TELEPHONE TRIAGE by Richard Samayoa Please click the below link to view image of tracing.
[2025-01-11 10:48] LABS: HEMATOCRIT 44.4 % (42-54)
--- NOTE | 2025-01-11 10:50 | NUR ---
HGB 14.1, HCT 40% REPORTED TO [facility] ORDERS. Addendum: 01/11/25 at 1247 by VY YOST RN RN CORRECTION: HCT 44% @9752
[2025-01-11] MEDS ORDERED: HYDROcodone/acetaMINOPHEN 7.5/325 MG TAB PO PRN (11:30)
[2025-01-11] MEDS: INDOMETHACIN 100 MG SUPP.RECT RC ONE (11:40)
[2025-01-11] MEDS: LACTATED RINGERS 1000ML 1,000 ML IV ONE (11:41)
--- NOTE | 2025-01-11 15:20 | NUR ---
DCP Patient status post surgical for Laparoscopic Cholecystectomy. Patient lives with Mother Falk [phone] after being released from [facility]; in a house with a tub. is unemployed, remains independent and does not drive. able to complete ADL's on his own. has a shower chair, if needed; denies other medical devices. Denies home health services, home care provider or dialysis. PCP - Eligio Hartmann MD Pharm[facility] - [facility]. Upon discharge, Mother Falk [phone] and assist with care, as needed. Requests assistance to pay for hospital stay. [facility] List. Referred to Financial Counseling. Notified CM. Addendum: 01/11/25 at 1526 by KRISTINE ALLEN RN CM Amended: Links added.
[2025-01-11] MEDS: acetaMINOPHEN WITH coDEINE 1 TAB TAB PO PRN (18:15)
[2025-01-11] MEDS: ondanSETRON 4MG INJ IVP PRN (20:41)
--- NOTE | 2025-01-12 03:10 | NUR ---
FALL PT ASSISTED OOB TO AMBULATE TO TRY AND PASS SOME GAS, HE SAT AT BEDSIDE AND BURPED SEVERAL TIMES. ASSISTED HIM OOB WALKED INTO HALLWAY AMBULATED 30FT HE THEN STATED HE FELT DIZZY AND WANTED TO RETURN TO ROOM. PT TURNED AROUND STOPPED STATED HE FELT REALLY DIZZY AND WITH MY ASSISTANCE AND SIDNEY LINER MACHINE OPERATOR HE WAS ASSISTED TO FLOOR. FOUND W/C AND WITH ASSISTANCE FROM OMERO STRATTON, MYSELF AND SIDNEY LINER MACHINE OPERATOR WATCHING PT WAS ABLE TO LIFT HIMSELF AND PUT HIMSELF INTO W/C. WHEELED TO ROOM VS 85/47, HR 145, BLOOD SUGAR 147. O2 SAT 97% ON RA. VS RECHECKED 101/69 HR 126. PT INSISTED ON SITTING W/C FOR 10 MORE MINUTES. HE IS PALE AND DIAPHORETIC. EARNEST JUSTICE PROBATE CLERK PAGED ORDERED 500ML BOLUS AND STAT CBC. PT TRANSFERRED BACK TO BED ON HIS OWN POWER. ABDOMEN IS SOFT NOT DISTENDED.
[2025-01-12] MEDS ORDERED: 0.9% NACL 500ML IV.SOLN 500 ML IV SCH (03:30)
[2025-01-12 03:41] VITALS: BP 130/67; PULSE 117; RESP 19; TEMP 98.4
--- NOTE | 2025-01-12 03:52 | NUR ---
RECHECK VS POST FALL 122/84 HR 106 SPO2 98% ON ROOM AIR
[2025-01-12 04:05] LABS: BASOPHILS # (AUTO) 0.05 K/uL (0.00-0.20); BASOPHILS % (AUTO) 0.2 % (0.0-5.0); HEMATOCRIT 33.1 % (42-54); IMMATURE GRANULOCYTE ABSOLUTE 0.62 K/uL (0-1); LYMPHOCYTES % (AUTO) 3.4 % (21.0-51.0); MEAN CORPUSCULAR HEMOGLOBIN 30.1 pg (27.0-33.0); MEAN CORPUSCULAR HGB CONC 33.2 g/dL (32.0-36.0); MEAN CORPUSCULAR VOLUME 90.4 fL (79-99); MONOCYTES # (AUTO) 1.7 K/uL (0.1-1.0); MONOCYTES % (AUTO) 5.9 % (3.0-13.0); NEUTROPHILS # (AUTO) 25.3 K/uL (1.8-7.7); NEUTROPHILS % (AUTO) 88.3 % (40.0-77.0); PLATELET COUNT (AUTO) 407 K/uL (130-400); RED BLOOD CELL COUNT(AUTO) 3.66 MIL/uL (4.50-6.20); RED CELL DISTRIBUTION WIDTH 13.1 % (11.0-15.5); WHITE BLOOD COUNT (AUTO) 28.7 K/uL (4.8-10.8)
[2025-01-12 04:09] LABS: ALBUMIN 2.6 g/dL (3.5-5.0); BILIRUBIN,TOTAL 4.8 mg/dL (0.2-1.0); CREATININE 1.2 mg/dL (0.5-1.3); MAGNESIUM 1.8 mg/dL (1.80-2.40); POTASSIUM 4.4 mmol/L (3.5-5.1); TOTAL PROTEIN, SERUM 5.8 g/dL (6.0-8.3)
--- NOTE | 2025-01-12 07:36 | PN ---
GASTROENTEROLOGY PROGRESS NOTE Date of Visit: Jan 12, 2025 Time of Visit: 07:36 Events / Notes: No acute events overnight. Patient is status post ERCP. Plan of care discussed. Review of Systems: CONSTITUTIONAL: No malaise or change in sensation of wellbeing. ENMT: No rhinorrhea, otorrhea, sinus pain, ear ache. CARDIOVASCULAR: No angina, palpitations, orthopnea or paroxysmal dyspnea. RESPIRATORY: No SOB. GASTROINTESTINAL: No abdominal pain, nausea, vomiting, diarrhea, hematemesis, melena or change in the patient's habitual bowel movements consistency/number. GENITOURINARY: No dysuria, hematuria or change in bladder continence. MUSCULOSKELETAL: No new muscle pain or decrease in muscular strength. No new joint swelling, redness or tenderness. SKIN: No new rash. Physical Exam: GEN: Awake, alert, oriented in person, time and place, and in no acute distress. HEENT: No sinus tenderness. Tympanic membranes were not examined. No rhinorrhea. Oral pharyngeal mucosa is pink, moist and within normal limits. Neck is supple with no cervical lymphadenopathy, thyromegaly or JVD. CHEST: Inspection, palpation and percussion of the chest were unremarkable. Lung auscultation revealed normal breath sounds bilaterally. CARDIAC: PMI is within normal limits. Heart sounds are regular. Normal S1, S2. No gallop or murmur. ABD: Soft, non-tender and not distended. No peritoneal signs on palpation. No organomegaly. Normal bowel sounds. EXT: No cyanosis or clubbing. No edema. SKIN: Intact. No rashes. JOINTS: No evidence of synovitis or acute arthritis. NEURO: Alert and oriented to name, place and person. Cranial nerve examination is unremarkable. No focal motor deficits. Normal speech. Gait is normal. Strength is normal. Vital Signs (last 8hr) Date Time Temp Pulse Resp B/P (MAP) Pulse Ox O2 Delivery O2 Flow Rate FiO2 01/12/25 03:41 98.4 117 19 130/67 95 Room Air 01/11/25 23:45 98.2 106 19 139/87 95 Room Air Laboratory: [ ] Laboratory: Test 01/12/25 03:45 01/12/25 03:17 01/11/25 06:07 Range/Units White Blood Count 28.7 #H 4.8-10.8 K/uL Red Blood Count 3.66 L 4.50-6.20 MIL/uL Hemoglobin 11.0 #L 14.0-18.0 g/dL Hematocrit 33.1 #L 42-54 % Mean Corpuscular Volume 90.4 79-99 fL Mean Corpuscular Hemoglobin 30.1 27.0-33.0 pg Mean Corpuscular Hemoglobin Concent 33.2 32.0-36.0 g/dL Red Cell Distribution Width 13.1 11.0-15.5 % Platelet Count 407 #H 130-400 K/uL Mean Platelet Volume 9.9 7.5-10.5 fL Immature Granulocyte % (Auto) 2.2 H 0-1 % Neutrophils (%) (Auto) 88.3 H 40.0-77.0 % Lymphocytes (%) (Auto) 3.4 L 21.0-51.0 % Monocytes (%) (Auto) 5.9 3.0-13.0 % Eosinophils (%) (Auto) 0.0 0.0-8.0 % Basophils (%) (Auto) 0.2 0.0-5.0 % Neutrophils # (Auto) 25.3 H 1.8-7.7 K/uL Lymphocytes # (Auto) 1.0 1.0-4.8 K/uL Monocytes # (Auto) 1.7 H 0.1-1.0 K/uL Eosinophils # (Auto) 0.00 0.00-0.70 K/uL Basophils # (Auto) 0.05 0.00-0.20 K/uL Absolute Immature Granulocyte (auto 0.62 0-1 K/uL Nucleated Red Blood Cells 0.0 0.0-0.19 % Sodium Level 135 L 136-145 mmol/L Potassium Level 4.4 3.5-5.1 mmol/L Chloride Level 101 101-111 mmol/L Carbon Dioxide Level 26 21-32 mmol/L Blood Urea Nitrogen 12 7-18 mg/dL Creatinine 1.2 0.5-1.3 mg/dL Glomerular Filtration Rate Calc 81 >90 mL/min Random Glucose 154 #H 70-105 mg/dL Total Calcium 8.2 L 8.5-10.1 mg/dL Magnesium Level 1.80 1.80-2.40 mg/dL Total Bilirubin 4.8 H 0.2-1.0 mg/dL Aspartate Amino Transf (AST/SGOT) 155 H 10-37 U/L Alanine Aminotransferase (ALT/SGPT) 319 H 12-78 U/L Alkaline Phosphatase 161 H 50-136 U/L Total Protein 5.8 L 6.0-8.3 g/dL Albumin 2.6 L 3.5-5.0 g/dL Lipase 820 *H 16-77 U/L Whole Blood Glucose 147 H 70-110 MG/DL Amylase Level 342 H 25-115 U/L Current Medications Medications (Trade) Dose Ordered Sig/Nina Route PRN Reason Start Time Stop Time Status Last Admin Dose Admin Acetaminophen (TYLenol 325MG TAB) 650 mg Q6H PRN PO MILD PAIN (1-3) 01/09/25 15:00 02/08/25 14:59 Acetaminophen/ Codeine Phosphate (TYLenol-coDEINE TAB) 1 tab Q4H PRN PO MODERATE PAIN (4-6) 01/10/25 10:00 01/11/25 11:14 DC Acetaminophen/ Codeine Phosphate (TYLenol-coDEINE TAB) 1 tab Q4H PRN PO MODERATE PAIN (4-6) 01/11/25 18:30 02/10/25 18:29 01/11/25 18:15 1 TAB Acetaminophen/ Hydrocodone Bitart (VicoDIN ES/ NORco ES 7.5/ 325MG) 1 tab Q4H PRN PO MODERATE PAIN (4-6) 01/11/25 11:30 01/11/25 18:04 DC Hydralazine HCl (APRESOLine 20MG INJ) 5 mg Q4H PRN IV ADMINISTER FOR SBP > 160 01/09/25 18:30 02/08/25 18:29 Ketorolac Tromethamine (toRADol) 15 mg Q8H PRN IV MODERATE PAIN (4-6) IF NPO 01/09/25 15:30 01/11/25 11:14 DC 01/11/25 00:49 15 MG Lactated Ringer's 1,000 ml @ 80 mls/hr [id number] IV 01/09/25 15:00 02/08/25 14:59 01/11/25 18:14 80 MLS/HR Magnesium Sulfate 50 ml @ 0 mls/hr PROTOCOL PRN IV low mag level 01/10/25 10:00 02/09/25 09:59 Morphine Sulfate (morPHINE 2MG SYG) 2 mg Q6H PRN IVP SEVERE PAIN (7-10) 01/09/25 15:30 01/16/25 15:29 01/11/25 20:41 2 MG Ondansetron HCl (zoFRAN 4MG INJ) 4 mg Q6H PRN IVP NAUSEA/VOMITING 01/09/25 15:00 02/08/25 14:59 01/11/25 20:41 4 MG Pantoprazole Sodium (PROTonix 40MG INJ) 40 mg Q24H IVP 01/09/25 15:00 02/08/25 14:59 01/11/25 15:25 40 MG Piperacillin Sod/ Tazobactam Sod (Zosyn 3.375gm+NS 50ml) 3.375 gm Q8H IVPB 01/09/25 19:00 01/19/25 18:59 01/12/25 02:53 3.375 GM Potassium Chloride 100 ml @ 100 mls/hr AD PRN IV POTASSIUM PROTOCOL 01/10/25 10:00 02/09/25 09:59 Potassium Chloride (K-Dur/Klor-Con 20meq) 20 meq AD PRN PO POTASSIUM PROTOCOL 01/10/25 10:00 02/09/25 09:59 Potassium Chloride (KCl 10% Elixir 20meq/15ml) 20 meq AD PRN PO POTASSIUM PROTOCOL 01/10/25 10:00 02/09/25 09:59 Sodium Chloride 500 ml @ 0 mls/hr Q0M IV 01/12/25 03:30 02/11/25 03:29 Sodium Chloride (NS 50ml) 50 ml AD IV 01/09/25 19:00 01/11/25 06:26 DC Thiamine HCl (Vitamin B-1) 100 mg Q24H IVP 01/09/25 15:00 02/08/25 14:59 01/11/25 15:24 100 MG Diagnostics / Radiology: [COPY/PASTE HERE IF NO REPORTS PLEASE DELETE SECTION] Assessment: [ ] Plan: Patient to f/u outpatient for stent removal Continue GI prophylaxis Advance diet as tolerated Avoid NSAIDs Antireflux measures Monitor H&H and transfuse as needed Call with questions, concerns or change in clinical status Patient to follow-up at clinic post discharge Thank you for this consult GEORGETTE CORDON [employer] NETWORK ENGINEER Jan 12, 2025 07:36
[2025-01-12 08:00] VITALS: BP 141/83; PULSE 121; RESP 18; TEMP 98.2; O2SAT 99
[2025-01-12] MEDS: MAGNESIUM 2GM PREMIX 50ML 50 ML IV PRN (10:06)
[2025-01-12 11:44] VITALS: BP 136/88; PULSE 116; RESP 18; TEMP 98
[2025-01-12 15:05] LABS: CREATININE 0.6 mg/dL (0.5-1.3); POTASSIUM 4.3 mmol/L (3.5-5.1)
[2025-01-12 15:09] LABS: ALBUMIN 1.9 g/dL (3.5-5.0); BILIRUBIN,TOTAL 3.3 mg/dL (0.2-1.0); TOTAL PROTEIN, SERUM 4.4 g/dL (6.0-8.3)
--- NOTE | 2025-01-12 15:35 | PN ---
pt comfortable s/p cholecystectomy with purulent drainage s/p ercp for cholangitis pt tachy had episode of decreased BP last pm abd soft incision dressed elevated wbc lft coming down give bolus increase ivf monitor h/h blood cultures negative Vitals/Labs Vital Signs Date Time Temp Pulse Resp B/P (MAP) Pulse Ox O2 Delivery O2 Flow Rate FiO2 01/12/25 11:44 98.1 116 18 136/88 98 Nasal Cannula 2.0 01/11/25 19:50 21 Laboratory Tests 01/12/25 03:45 01/12/25 14:39 Medications Current Medications Lidocaine HCl 10 ml ONCE ONCE PO Last administered on 01/09/25 12:12; Start 01/09/25 at 12:00; Stop 01/09/25 at 12:01; Status DC Al Hydroxide/Mg Hydroxide 30 ml ONCE ONCE PO Last administered on 01/09/25at 12:12; Start 01/09/25 at 12:00; Stop 01/09/25 at 12:01; Status DC Famotidine 20 mg ONCE ONCE PO Last administered on 01/09/25at 12:12; Start 01/09/25 at 12:00; Stop 01/09/25 at 12:01; Status DC Dicyclomine HCl 10 mg ONCE ONCE PO Last administered on 01/09/25at 12:12; Start 01/09/25 at 12:00; Stop 01/09/25 at 12:01; Status DC Sodium Chloride 1,000 ml @ 0 mls/hr ONCE ONCE IV Last administered on 01/09/25at 13:00; Start 01/09/25 at 12:30; Stop 01/09/25 at 12:33; Status DC Morphine Sulfate 2 mg ONCE ONCE IVP Last administered on 01/09/25at 13:00; Start 01/09/25 at 12:30; Stop 01/09/25 at 12:33; Status DC Ondansetron HCl 4 mg ONCE ONCE IVP Last administered on 01/09/25at 13:00; Start 01/09/25 at 12:30; Stop 01/09/25 at 12:33; Status DC Iohexol 75 ml STK-MED ONCE IV; Start 01/09/25 at 12:49; Stop 01/09/25 at 12:49; Status DC Piperacillin Sod/ Tazobactam Sod 3.375 gm ONCE ONCE IVPB Last administered on 01/09/25 13:39; Start 01/09/25 at 14:00; Stop 01/09/25 at 14:01; Status DC Morphine Sulfate 4 mg ONCE ONCE IVP Last administered on 01/09/25at 13:50; Start 01/09/25 at 14:00; Stop 01/09/25 at 14:01; Status DC Lactated Ringer's 1,000 ml @ 80 mls/hr [id number] IV Last administered on 01/11/25at 18:14; Start 01/09/25 at 15:00; Stop 02/08/25 at 14:59 Acetaminophen 650 mg Q6H PRN PO; Start 01/09/25 at 15:00; Stop 02/08/25 at 14:59 Ondansetron HCl 4 mg Q6H PRN IVP Last administered on 01/11/25at 20:41; Start 01/09/25 at 15:00; Stop 02/08/25 at 14:59 Thiamine HCl 100 mg Q24H IVP Last administered on 01/12/25at 14:31; Start 01/09/25 at 15:00; Stop 02/08/25 at 14:59 Piperacillin Sod/ Tazobactam Sod 3.375 gm Q8H IVPB Last administered on 01/12/25 12:30; Start 01/09/25 at 19:00; Stop 01/19/25 at 18:59 Sodium Chloride 50 ml AD IV; Start 01/09/25 at 19:00; Stop 01/11/25 at 06:26; Status DC Pantoprazole Sodium 40 mg Q24H IVP Last administered on 01/12/25at 14:31; Start 01/09/25 at 15:00; Stop 02/08/25 at 14:59 Ketorolac Tromethamine 15 mg Q8H PRN IV Last administered on 01/11/25at 00:49; Start 01/09/25 at 15:30; Stop 01/11/25 at 11:14; Status DC Morphine Sulfate 2 mg Q6H PRN IVP Last administered on 01/11/25at 20:41; Start 01/09/25 at 15:30; Stop 01/16/25 at 15:29 Hydralazine HCl 5 mg Q4H PRN IV; Start 01/09/25 at 18:30; Stop 02/08/25 at 18:29 Acetaminophen/ Codeine Phosphate 1 tab Q4H PRN PO; Start 01/10/25 at 10:00; Stop 01/11/25 at 11:14; Status DC Potassium Chloride 100 ml @ 100 mls/hr AD PRN IV; Start 01/10/25 at 10:00; Stop 02/09/25 at 09:59 Potassium Chloride 20 meq AD PRN PO; Start 01/10/25 at 10:00; Stop 02/09/25 at 09:59 Potassium Chloride 20 meq AD PRN PO; Start 01/10/25 at 10:00; Stop 02/09/25 at 09:59 Magnesium Sulfate 50 ml @ 0 mls/hr PROTOCOL PRN IV Last administered on 01/12/25at 10:06; Start 01/10/25 at 10:00; Stop 02/09/25 at 09:59 Midazolam HCl 2 mg STK-MED ONCE .ROUTE; Start 01/10/25 at 11:42; Stop 01/10/25 at 11:42; Status DC Rocuronium [place] 50 mg STK-MED ONCE .ROUTE; Start 01/10/25 at 11:42; Stop 01/10/25 at 11:42; Status DC Propofol 200 mg STK-MED ONCE IV; Start 01/10/25 at 11:42; Stop 01/10/25 at 11:42; Status DC Fentanyl Citrate 250 mcg STK-MED ONCE IV; Start 01/10/25 at 11:42; Stop 01/10/25 at 11:43; Status DC Ondansetron HCl 4 mg STK-MED ONCE .ROUTE; Start 01/10/25 at 11:47; Stop 01/10/25 at 11:47; Status DC Iohexol 50 ml STK-MED ONCE IV; Start 01/10/25 at 11:56; Stop 01/10/25 at 11:56; Status DC Atropine Sulfate 1 mg STK-MED ONCE IVP; Start 01/10/25 at 12:47; Stop 01/10/25 at 12:47; Status DC Glycopyrrolate 1 mg STK-MED ONCE .ROUTE; Start 01/10/25 at 13:05; Stop 01/10/25 at 13:06; Status DC Neostigmine Methylsulfate 10 mg STK-MED ONCE IV; Start 01/10/25 at 13:05; Stop 01/10/25 at 13:06; Status DC Indomethacin 100 mg ONCE ONCE RC; Start 01/10/25 at 13:30; Stop 01/10/25 at 13:31; Status DC Nicotine 7 mg ONCE ONCE TD Last administered on 01/10/25at 18:24; Start 01/10/25 at 18:30; Stop 01/10/25 at 18:31; Status DC Dexamethasone Sodium Phosphate 10 mg STK-MED ONCE .ROUTE; Start 01/11/25 at 07:31; Stop 01/11/25 at 07:35; Status DC Lidocaine HCl 100 mg STK-MED ONCE .ROUTE; Start 01/11/25 at 07:31; Stop 01/11/25 at 07:35; Status DC Bupivacaine HCl 5 mg STK-MED ONCE .ROUTE; Start 01/11/25 at 07:31; Stop 01/11/25 at 07:35; Status DC Ondansetron HCl 4 mg STK-MED ONCE .ROUTE; Start 01/11/25 at 07:31; Stop 01/11/25 at 07:35; Status DC Glycopyrrolate 1 mg STK-MED ONCE .ROUTE; Start 01/11/25 at 07:32; Stop 01/11/25 at 07:35; Status DC Propofol 200 mg STK-MED ONCE IV; Start 01/11/25 at 07:32; Stop 01/11/25 at 07:35; Status DC Neostigmine Methylsulfate 10 mg STK-MED ONCE IV; Start 01/11/25 at 07:32; Stop 01/11/25 at 07:35; Status DC Succinylcholine Chloride 200 mg STK-MED ONCE .ROUTE; Start 01/11/25 at 07:32; Stop 01/11/25 at 07:35; Status DC Rocuronium [place] 50 mg STK-MED ONCE .ROUTE; Start 01/11/25 at 07:32; Stop 01/11/25 at 07:35; Status DC Fentanyl Citrate 100 mcg STK-MED ONCE .ROUTE; Start 01/11/25 at 07:32; Stop 01/11/25 at 07:35; Status DC Midazolam HCl 2 mg STK-MED ONCE .ROUTE; Start 01/11/25 at 07:33; Stop 01/11/25 at 07:35; Status DC Lactated Ringer's 1,000 ml @ As Directed STK-MED ONCE IV; Start 01/11/25 at 08:04; Stop 01/11/25 at 08:04; Status DC Fentanyl Citrate 100 mcg STK-MED ONCE .ROUTE; Start 01/11/25 at 08:09; Stop 01/11/25 at 08:09; Status DC Fentanyl Citrate 100 mcg STK-MED ONCE .ROUTE; Start 01/11/25 at 08:21; Stop 01/11/25 at 08:21; Status DC Bupivacaine HCl 150 mg STK-MED ONCE INJ Last administered on 01/11/25at 08:30; Start 01/11/25 at 08:30; Stop 01/11/25 at 08:35; Status DC Epinephrine HCl 1 mg STK-MED ONCE .ROUTE; Start 01/11/25 at 08:32; Stop 01/11/25 at 08:32; Status DC Atropine Sulfate 1 mg STK-MED ONCE IVP; Start 01/11/25 at 08:32; Stop 01/11/25 at 08:32; Status DC Propofol 200 mg STK-MED ONCE IV; Start 01/11/25 at 08:49; Stop 01/11/25 at 08:49; Status DC Metoprolol Tartrate 5 mg STK-MED ONCE IV; Start 01/11/25 at 09:22; Stop 01/11/25 at 09:22; Status DC Succinylcholine Chloride 200 mg STK-MED ONCE .ROUTE; Start 01/11/25 at 09:22; Stop 01/11/25 at 09:23; Status DC Fentanyl Citrate 100 mcg STK-MED ONCE .ROUTE; Start 01/11/25 at 09:36; Stop 01/11/25 at 09:36; Status DC Ondansetron HCl 4 mg STK-MED ONCE .ROUTE Last administered on 01/11/25at 10:22; Start 01/11/25 at 10:13; Stop 01/11/25 at 10:13; Status DC Fentanyl Citrate 100 mcg STK-MED ONCE .ROUTE Last administered on 01/11/25at 10:22; Start 01/11/25 at 10:13; Stop 01/11/25 at 10:13; Status DC Acetaminophen/ Hydrocodone Bitart 1 tab Q4H PRN PO; Start 01/11/25 at 11:30; Stop 01/11/25 at 18:04; Status DC Acetaminophen/ Codeine Phosphate 1 tab Q4H PRN PO Last administered on 01/12/25at 14:35; Start 01/11/25 at 18:30; Stop 02/10/25 at 18:29 Sodium Chloride 500 ml @ 0 mls/hr Q0M IV; Start 01/12/25 at 03:30; Stop 02/11/25 at 03:29 Sodium Chloride 500 ml @ 0 mls/hr Q0M IV; Start 01/12/25 at 15:30; Stop 02/11/25 at 15:29 MANDEEP SHERIDAN MD Jan 12, 2025 15:35
--- NOTE | 2025-01-12 15:36 | PN ---
INFECTIOUS DISEASE PROGRESS NOTE Date of Service: Jan 12, 2025 SUBJECTIVE: This is a 34-year-old male patient with past medical history of obesity and substance abuse marijuana and cocaine who presented to the hospital with chief complaints of abdominal pain. Patient had no fever however the WBC was elevated at 17.2 and the ESR was 25. Patient also had elevated liver enzymes. A CT of the abdomen and pelvis done on admission showed acute calculous cholecystitis. A HIDA scan confirmed findings of acute cholecystitis and possible extrahepatic biliary obstruction and on 01/10/2025 patient underwent an ERCP with stone extractions. On 01/11/2025 patient underwent a laparoscopic cholecystectomy. Postoperatively today patient's WBC increased to 28.7 and the reason for this consult. No fever at this time and the latest temperature is 98.1. Leukocytosis could possibly be reactive but we will monitor patient and if no improvement by tomorrow we will obtain a CT scan of the abdomen. No episodes of emesis reported. REVIEW OF SYSTEMS CONSTITUTIONAL: Denies fever, chills, or fatigue. HEAD/FACE: No signs of trauma. EENT: Denies eye pain, blurred vision, double vision, or light sensitivity. RESPIRATORY: Denies shortness of breath, cough, wheezing CARDIOVASCULAR: Denies chest pain, palpitation, syncope GASTROINTESTINAL/ABDOMINAL: Denies constipation, diarrhea, nausea or vomiting. Positive for abdominal pain. GENITOURINARY: Denies dysuria or hematuria. MUSCULOSKELETAL: Denies joint pain, tenderness, or trauma. INTEGUMENTARY: Denies rash or itchiness NEUROLOGICAL/PSYCH: Denies anxiety, depression, heat or cold intolerance. PHYSICAL EXAM EYES: Anicteric. Pupils equal and reactive. HENT: No oral thrush seen, moist Oral mucosa. NECK: Supple, no JVD or thyromegaly. LUNGS: Good air entry. No rales, no rhonchi. CARDIOVASCULAR: S1, S2 regular. No murmur heard. ABDOMEN: Soft, bowel sounds present, no organomegaly. Tender on palpation. Surgical incisions to abdomen. CENTRAL NERVOUS SYSTEM: Awake, alert, oriented x 3. No focal deficits. SKIN: No rashes, no swelling. LYMPHATICS: No peripheral lymphadenopathy. MUSCULOSKELETAL: No joint swelling, erythema or tenderness. EXTREMITIES: No cyanosis or clubbing. BACK: No deformity, no pressure ulcer. GENITOURINARY: No dysuria or hematuria. Vital Sign (Last 12 Hours) 01/12/25 01/12/25 01/12/25 03:41 08:00 11:44 Temp 98.4 98.2 98.1 Pulse 117 121 116 Resp 19 18 18 B/P (MAP) 130/67 141/83 136/88 Pulse Ox 95 98 O2 Delivery Room Air Room Air Nasal Cannula O2 Flow Rate 2.0 Intake & Output (last 24hrs) 01/11/25 01/11/25 01/12/25 15:00 23:00 07:00 Intake Total 220 ml 220 ml 1050.0 ml Output Total 200 ml Balance 220 ml 20 ml 1050.0 ml LABS: Laboratory: Test 01/12/25 14:39 01/12/25 03:45 01/12/25 03:17 01/11/25 06:07 Range/Units Hemoglobin 8.6 #L 14.0-18.0 g/dL Hematocrit 26.0 #L 42-54 % Sodium Level 134 L 136-145 mmol/L Potassium Level 4.3 3.5-5.1 mmol/L Chloride Level 101 101-111 mmol/L Carbon Dioxide Level 24 21-32 mmol/L Blood Urea Nitrogen 8 7-18 mg/dL Creatinine 0.6 0.5-1.3 mg/dL Glomerular Filtration Rate Calc 130 >90 mL/min Random Glucose 93 70-105 mg/dL Lactic Acid Level 3.9 H 0.8-2.5 mmol/L Total Calcium 7.3 L 8.5-10.1 mg/dL Total Bilirubin 3.3 #H 0.2-1.0 mg/dL Aspartate Amino Transf (AST/SGOT) 100 H 10-37 U/L Alanine Aminotransferase (ALT/SGPT) 226 #H 12-78 U/L Alkaline Phosphatase 118 # 50-136 U/L Total Protein 4.4 #L 6.0-8.3 g/dL Albumin 1.9 #L 3.5-5.0 g/dL White Blood Count 28.7 #H 4.8-10.8 K/uL Red Blood Count 3.66 L 4.50-6.20 MIL/uL Mean Corpuscular Volume 90.4 79-99 fL Mean Corpuscular Hemoglobin 30.1 27.0-33.0 pg Mean Corpuscular Hemoglobin Concent 33.2 32.0-36.0 g/dL Red Cell Distribution Width 13.1 11.0-15.5 % Platelet Count 407 #H 130-400 K/uL Mean Platelet Volume 9.9 7.5-10.5 fL Immature Granulocyte % (Auto) 2.2 H 0-1 % Neutrophils (%) (Auto) 88.3 H 40.0-77.0 % Lymphocytes (%) (Auto) 3.4 L 21.0-51.0 % Monocytes (%) (Auto) 5.9 3.0-13.0 % Eosinophils (%) (Auto) 0.0 0.0-8.0 % Basophils (%) (Auto) 0.2 0.0-5.0 % Neutrophils # (Auto) 25.3 H 1.8-7.7 K/uL Lymphocytes # (Auto) 1.0 1.0-4.8 K/uL Monocytes # (Auto) 1.7 H 0.1-1.0 K/uL Eosinophils # (Auto) 0.00 0.00-0.70 K/uL Basophils # (Auto) 0.05 0.00-0.20 K/uL Absolute Immature Granulocyte (auto 0.62 0-1 K/uL Nucleated Red Blood Cells 0.0 0.0-0.19 % Magnesium Level 1.80 1.80-2.40 mg/dL Lipase 820 *H 16-77 U/L Whole Blood Glucose 147 H 70-110 MG/DL Amylase Level 342 H 25-115 U/L DIAGNOSTICS / RADIOLOGY: PATIENT: SHERYL HARVEY MR#: [id number] : 1990 SEX: M AGE: 34 LOCATION: [facility] ORDER STATUS: ADM IN REPORT#: [id number] SERVICE 145 REASON: biliary colic, r/o acute cholecystitis ORDERING PHYSICIAN: ALESSANDRA SINCLAIR MD PROCEDURE: HIDAWO - NM HIDA WO EF/CCK HEPATOBILIARY SCAN INDICATION: Right upper abdominal pain COMPARISON: None RADIOPHARMACEUTICAL: Tc99m Choletec DOSE: 6.5 mCi given IV. TECHNIQUE: Abdominal functional images were obtained and submitted for interpretation. FINDINGS/IMPRESSION: EXAMINATION WAS ORDERED A ROUTINE STUDY. Functional images obtained up to 60 minutes only, but showed no radiotracer transit into the intestinal system or any accumulation of activity within the gallbladder. These findings are compatible with acute cholecystitis an possible extrahepatic biliary obstruction. DICTATED BY: YOEL ALVARENGA MD DATE: 01/10/25819 ASSESSMENT: Acute cholecystitis, status post laparoscopic cholecystectomy. Sepsis. Biliary obstruction, status post ERCP with stone extraction. Leukocytosis. Substance abuse. PLAN: Continue Zosyn. If no improvement by tomorrow patient will need a CT scan of the abdomen. We will follow up on the blood culture results. Continue pain management. Continue IV fluids. We will monitor electrolytes. Thank you for allowing [facility] to participate in the care of this patient. This case was reviewed and discussed with my supervising physician and the above assessment and plan was formulated and agreed upon. ATTESTATION BY PHYSICIAN I have seen and examined the patient. I reviewed the documentation, medical decision making, and treatment plan as noted by the mid-level provider above. I agree with the findings and plan of care. SERGO MARQUEZ MD, [facility] L [facility] Jan 12, 2025 15:36
[2025-01-12] MEDS ORDERED: ACET-2079 PO (15:37)
--- NOTE | 2025-01-12 15:37 | PN ---
[facility] PROGRESS NOTE Date of Service: Jan 12, 2025 Time of Service: 15:09 SUBJECTIVE: [ ] This is a 34-year-old was admitted on 01/09/2025 with chief complaints of left upper quadrant abdominal pain associated with nausea and vomiting. ER workup was consistent with acute cholecystitis biliary colic with multiple cholelithiasis, GI was consulted for possible ERCP general surgeon we will wait most likely lap keyonna tomorrow. Patient was made aware verbalized understanding. 01/11/25 Patient is a 34-male admitted for acute cholecystitis and suspected extrahepatic biliary obstruction. He underwent laparoscopic cholecystectomy today and ERCP yesterday due to elevated bilirubin, transaminitis, and imaging findings concerning for cholecystitis. Postoperative status patient was examined based side post surgery, is conscious, stable and slowly recovering. Mild postop discomfort but no nausea vomiting or significant pain. No fever chills or shortness of breath. Vital signs are stable postop and blood pressure at 130 5 x 79 mmHg postop dressing appears dry clean and intact. His postop hemoglobin and hematocrit are stable with 14.1 and 44.4. ERCP findings revealed choledocholithiasis found with partial removal accomplished via biliary sphincterotomy no stent was placed. A biliary sphincterotomy was performed. Biliary tree swept, 1 stone was removed. Three stones remain with5 FR by3 cm plastic stent plus 10 FR by 5 cm plastic stent placed in pancreatic biliary duct. Pus seen exiting the ampulla concerns for cholangitis. Recommendations with the removal biliary stent in 4 weeks at repeat ERCP outpatient visit 01/12/25 Patient was examined at bedside, case was discussed with RN. 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 Found slightly drowsy, sleeping in bed, but arousable. BP fluctuations and tachycardia persistent. General surgery has been reconsulted for evaluation of postop changes. Acute hemoglobin drop from 11.0-8.6 and hematocrit from 33.1 to 26.0 concerns for postop bleeding. Serum lactate increased to 3.9 possible hypoperfusion or sepsis. Lipase trending down. H and H monitoring q.6h initiated. REVIEW OF SYSTEMS CONSTITUTIONAL: Denies fevers, chills, or night sweats. No unintentional weight loss reported. NEUROLOGICAL: Denies headache, amaurosis fugax, motor weakness, sensory deficit, vertigo/spinning sensation, gait abnormalities, or tremors. ENT: No hearing loss, otalgia, otorrhea, rhinitis, rhinorrhea, hoarseness, or sore throat. CARDIOVASCULAR: Denies any exertional angina, dyspnea on exertion, orthopnea, paroxysmal nocturnal dyspnea, palpitations, life-threatening arrhythmias, li ication. PULMONARY: Denies any shortness of breath, cough, phlegm/sputum, hemoptysis, pleuritic chest pain. SLEEP: Denies morning headaches, daytime somnolence or napping. Denies difficulty falling asleep, staying asleep, waking from sleep. Denies knowledge of snoring. GASTROINTESTINAL: Epigastric abdominal pain with associated nausea and vomiting, chronic history of left upper quadrant pain for about 10 years GENITOURINARY: Denies frequency, urgency, nocturia, hematuria or incontinence (Storage/Irritative symptoms.) Low urinary stream, straining to void, urinary intermittency or hesitancy, splitting of the voiding stream, terminal dribbling. ENDOCRINOLOGIC: Denies polyuria, polydipsia, polyphagia or heat/cold intolerances. HEMATOLOGIC: Denies thrombophilia/previous clots, or coagulopathy/bleeding disorders. ONCOLOGIC: Denies personal history of malignancy. DERMATOLOGIC: Denies rashes or pruritus. PSYCHIATRIC: Denies any suicidal or homicidal ideation. Denies hallucinations. PHYSICAL EXAM GENERAL APPEARANCE: The patient is awake, alert, and oriented, in no acute cardiopulmonary distress. NEUROLOGICAL: Cranial nerves II-XII grossly intact. Motor is 5/5 in bilateral upper and lower extremities proximal to distal. No sensory deficits. HEENT: Face is symmetric. Pupils are equal and reactive. Extraocular movements are intact. NECK: Supple. No JVD. No thyromegaly. No submental, submandibular, pre- /postauricular, occipital or supraclavicular lymphadenopathy. CHEST: Normal chest expansion. No Telemetry. LUNGS: Absence of any rales, rhonchi or any wheezing. CARDIOVASCULAR: Regular. S1 and S2 normal. No appreciable rubs, murmurs or g allops. ABDOMEN: Soft, mild tenderness to palpation of the epigastric and left upper qu adrant region, Deleon's sign negative, patient did report that he received IV morphine prior : Deferred. No Curtis. EXTREMITIES: Non-edematous and not cyanotic. No clubbing. Good capillary refill. SKIN: No skin breakdown. Vital Signs (last 8hr) Date Time Temp Pulse Resp B/P (MAP) Pulse Ox O2 Delivery O2 Flow Rate FiO2 01/12/25 11:44 98.1 116 18 136/88 98 Nasal Cannula 2.0 01/12/25 08:00 98.2 121 18 141/83 Room Air LABS: Laboratory: Test 01/12/25 14:39 01/12/25 03:45 01/12/25 03:17 01/11/25 06:07 Range/Units Hemoglobin 8.6 #L 14.0-18.0 g/dL Hematocrit 26.0 #L 42-54 % Sodium Level 134 L 136-145 mmol/L Potassium Level 4.3 3.5-5.1 mmol/L Chloride Level 101 101-111 mmol/L Carbon Dioxide Level 24 21-32 mmol/L Blood Urea Nitrogen 8 7-18 mg/dL Creatinine 0.6 0.5-1.3 mg/dL Glomerular Filtration Rate Calc 130 >90 mL/min Random Glucose 93 70-105 mg/dL Lactic Acid Level 3.9 H 0.8-2.5 mmol/L Total Calcium 7.3 L 8.5-10.1 mg/dL White Blood Count 28.7 #H 4.8-10.8 K/uL Red Blood Count 3.66 L 4.50-6.20 MIL/uL Mean Corpuscular Volume 90.4 79-99 fL Mean Corpuscular Hemoglobin 30.1 27.0-33.0 pg Mean Corpuscular Hemoglobin Concent 33.2 32.0-36.0 g/dL Red Cell Distribution Width 13.1 11.0-15.5 % Platelet Count 407 #H 130-400 K/uL Mean Platelet Volume 9.9 7.5-10.5 fL Immature Granulocyte % (Auto) 2.2 H 0-1 % Neutrophils (%) (Auto) 88.3 H 40.0-77.0 % Lymphocytes (%) (Auto) 3.4 L 21.0-51.0 % Monocytes (%) (Auto) 5.9 3.0-13.0 % Eosinophils (%) (Auto) 0.0 0.0-8.0 % Basophils (%) (Auto) 0.2 0.0-5.0 % Neutrophils # (Auto) 25.3 H 1.8-7.7 K/uL Lymphocytes # (Auto) 1.0 1.0-4.8 K/uL Monocytes # (Auto) 1.7 H 0.1-1.0 K/uL Eosinophils # (Auto) 0.00 0.00-0.70 K/uL Basophils # (Auto) 0.05 0.00-0.20 K/uL Absolute Immature Granulocyte (auto 0.62 0-1 K/uL Nucleated Red Blood Cells 0.0 0.0-0.19 % Magnesium Level 1.80 1.80-2.40 mg/dL Lipase 820 *H 16-77 U/L Whole Blood Glucose 147 H 70-110 MG/DL Amylase Level 342 H 25-115 U/L Current Medications Medications (Trade) Dose Ordered Sig/Nina Route PRN Reason Start Time Stop Time Status Last Admin Dose Admin Acetaminophen (TYLenol 325MG TAB) 650 mg Q6H PRN PO MILD PAIN (1-3) 01/09/25 15:00 02/08/25 14:59 Acetaminophen/ Codeine Phosphate (TYLenol-coDEINE TAB) 1 tab Q4H PRN PO MODERATE PAIN (4-6) 01/10/25 10:00 01/11/25 11:14 DC Acetaminophen/ Codeine Phosphate (TYLenol-coDEINE TAB) 1 tab Q4H PRN PO MODERATE PAIN (4-6) 01/11/25 18:30 02/10/25 18:29 01/12/25 14:35 1 TAB Acetaminophen/ Hydrocodone Bitart (VicoDIN ES/ NORco ES 7.5/ 325MG) 1 tab Q4H PRN PO MODERATE PAIN (4-6) 01/11/25 11:30 01/11/25 18:04 DC Hydralazine HCl (APRESOLine 20MG INJ) 5 mg Q4H PRN IV ADMINISTER FOR SBP > 160 01/09/25 18:30 02/08/25 18:29 Ketorolac Tromethamine (toRADol) 15 mg Q8H PRN IV MODERATE PAIN (4-6) IF NPO 01/09/25 15:30 01/11/25 11:14 DC 01/11/25 00:49 15 MG Lactated Ringer's 1,000 ml @ 80 mls/hr [id number] IV 01/09/25 15:00 02/08/25 14:59 3/3/25 18:14 80 MLS/HR Magnesium Sulfate 50 ml @ 0 mls/hr PROTOCOL PRN IV low mag level 01/10/25 10:00 02/09/25 09:59 01/12/25 10:06 25 MLS/HR Morphine Sulfate (morPHINE 2MG SYG) 2 mg Q6H PRN IVP SEVERE PAIN (7-10) 01/09/25 15:30 01/16/25 15:29 01/11/25 20:41 2 MG Ondansetron HCl (zoFRAN 4MG INJ) 4 mg Q6H PRN IVP NAUSEA/VOMITING 01/09/25 15:00 02/08/25 14:59 01/11/25 20:41 4 MG Pantoprazole Sodium (PROTonix 40MG INJ) 40 mg Q24H IVP 01/09/25 15:00 02/08/25 14:59 01/12/25 14:31 40 MG Piperacillin Sod/ Tazobactam Sod (Zosyn 3.375gm+NS 50ml) 3.375 gm Q8H IVPB 01/09/25 19:00 01/19/25 18:59 01/12/25 12:30 3.375 GM Potassium Chloride 100 ml @ 100 mls/hr AD PRN IV POTASSIUM PROTOCOL 01/10/25 10:00 02/09/25 09:59 Potassium Chloride (K-Dur/Klor-Con 20meq) 20 meq AD PRN PO POTASSIUM PROTOCOL 01/10/25 10:00 02/09/25 09:59 Potassium Chloride (KCl 10% Elixir 20meq/15ml) 20 meq AD PRN PO POTASSIUM PROTOCOL 01/10/25 10:00 02/09/25 09:59 Sodium Chloride 500 ml @ 0 mls/hr Q0M IV 01/12/25 03:30 02/11/25 03:29 Sodium Chloride (NS 50ml) 50 ml AD IV 01/09/25 19:00 01/11/25 06:26 DC Thiamine HCl (Vitamin B-1) 100 mg Q24H IVP 01/09/25 15:00 02/08/25 14:59 01/12/25 14:31 100 MG DIAGNOSTICS / RADIOLOGY: [ ] PATIENT: SHERYL HARVEY MR#: [id number] : 1990 SEX: M AGE: 34 LOCATION: [facility] ORDER 53 STATUS: ADM IN REPORT#: [id number] SERVICE [id number] REASON: ERCP ORDERING PHYSICIAN: STACIE SINCLAIR MD PROCEDURE: ERCP - ERCP BILI/PANC DUCT INTRAOPERATIVE FLUOROSCOPIC GUIDANCE UP TO 1 HOUR. IMPRESSION: Intraoperative fluoroscopic guidance was provided for ERCP, which was performed by Dr. Conteh. Total fluoroscopy time was 3 minutes 26 seconds, and administered dose, 88.5 mGy. A total of 9 spot images obtained. Please refer to the procedure note for further details. DICTATED BY: YOEL ALVARENGA MD DATE: 01/10/251705 ELECTRONICALLY SIGNED BY: YOEL ALVARENGA MD DATE: 01/10/251708 ASSESSMENT: Symptomatic biliary colic with multiple cholelithiasis, POA Suspected acute cholecystitis, POA Leukocytosis, POA Dehydration, POA History of long-term cocaine use disorder, (Last cocaine use, 2 days ago, 01/07/25) POA History of tobacco use disorder, POA Obesity, POA PLAN: Fall risk and orthostasis Fall precautions in place. Obtain orthostatic vitals. Hemodynamics and suspected bleeding General surgery consult for postop bleeding evaluation. H and H q4h monitoring. Transfuse packed RBCs if hemoglobin less than 8. Abdominal ultrasound for intra-abdominal hemorrhage. If inconclusive then abdominal CT scan can be ordered. Infectious disease and possible cholangitis Infectious disease consult already placed. Continue Zosyn 3.375 g IV q.6h. Monitor fever trends, lactate and inflammatory markers. Blood culture has been ordered for worsening fever and WBC. Renal Stict I/Os and urine monitoring every hour. Increase IV fluids per response to bolus. REPEAT BMP and lactate in AM Neurological Neurochecks every 4 hours. Monitor mentation and rule out metabolic encephalopathy. Consider head CT if mental status worsens. Nutrition and fluid management Continue IV fluids. Albumin infusion if level drops further. Substance use and social support Monitor for withdrawal symptoms. 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 Patient will be admitted to medical-surgical floor under telemetry monitoring Postop status, laparoscopic cholecystectomy done today patient is stable and recovering. ERCP performed with biliary sphincterotomy. One stone removed, 3 remaining biliary stents placed For repeat ERCP in 4 weeks for complete stone removal On outpatient basis. Elevated lipase amylase with biliary obstruction. Improvement expected post stone removal. From ampulla concerns for cholangitis broad-spectrum antibiotics needed continue Zosyn Pain and marijuana use history monitor for withdrawal symptoms. Postoperative care monitor vitals q.4h, assess pain nausea signs of infection. Liquid diet only. Maintain strict I/os. One bolus of NS at 500 mL was administered. IV fluids continue LR at 125 mL/hour for hydration tachycardia subsides and he is hemodynamically stable maintain LR at 80 mL/hour Pain management Continue acetaminophen 650 mg p.o. q.6h p.r.n.. Continue hydrocodone acetaminophen1 tab p.o. q.4h p.r.n. for moderate pain bracket recording ES. [id number] mg IV q.8h p.r.n.. Morphine2 mg IV p.r.n. if severe pain only. Continue Zosyn 3.375 g IV q.6h for at least48 hours. Monitor electrolytes closely and replace as per facility protocol. DVT prophylaxis and GI prophylaxis should be continued. ATTESTATION BY PHYSICIAN I have seen and examined the patient. I reviewed the documentation, medical decision making, and treatment plan as noted by the resident above. I agree with the findings and plan of care. Dequan Rebolledo MD, RAGHAVA R MD Jan 12, 2025 15:37
[2025-01-12] MEDS: 0.9% NACL 500ML IV.SOLN 500 ML IV SCH (15:43)
[2025-01-12 15:59] VITALS: BP 128/75; PULSE 122; RESP 18; TEMP 98.1
[2025-01-12 16:00] VITALS: BP 114/71; PULSE 153; RESP 18
--- NOTE | 2025-01-12 17:40 | NUR ---
ORTHOSTATIC PT eval: not able to walk pt due to continued orthostatics: 119/69 80 MAP 148 HR supine 95/55 68 MAP 73 HR seated 'Pt symptomatic. back to bed.
[2025-01-12 18:07] LABS: INR 1.08 (0.85-1.15); PROTHROMBIN TIME 11.4 SEC (9.6-11.6)
[2025-01-12 18:59] LABS: HEMATOCRIT 27.1 % (42-54)
[2025-01-12 20:00] VITALS: BP 122/73; PULSE 125; RESP 18; TEMP 98.6; O2SAT 100
--- NOTE | 2025-01-12 21:39 | HMCIMG ---
CHEST 1VW HISTORY: PICC line placement COMPARISON: 01/09/2025 FINDINGS: A frontal projection of the chest was obtained. Mild bilateral pulmonary infiltrates are seen may be related to mild pulmonary vascular congestion with possible superimposed pneumonitis. The heart is borderline enlarged. Right venous catheter is seen with distal tip in plane of the superior vena cava. Poor inspiratory effort is seen. IMPRESSION: 1. Mild bilateral pulmonary infiltrates are seen may be related to mild pulmonary vascular congestion with possible superimposed pneumonitis.
[2025-01-13] VITALS (11 sets, daily range): BP systolic 107–127; BP diastolic 61–76; PULSE 107–138; RESP 18–20; TEMP 98–101.5; O2SAT 96–97
[2025-01-13] MEDS: LAbetaLOL 20MG SYG IV ONE (01:13)
[2025-01-13 05:58] LABS: BASOPHILS # (AUTO) 0.04 K/uL (0.00-0.20); BASOPHILS % (AUTO) 0.2 % (0.0-5.0); HEMATOCRIT 22.4 % (42-54); IMMATURE GRANULOCYTE ABSOLUTE 0.53 K/uL (0-1); LYMPHOCYTES # (AUTO) 1.8 K/uL (1.0-4.8); LYMPHOCYTES % (AUTO) 8.8 % (21.0-51.0); MEAN CORPUSCULAR HEMOGLOBIN 30.2 pg (27.0-33.0); MEAN CORPUSCULAR HGB CONC 32.6 g/dL (32.0-36.0); MEAN CORPUSCULAR VOLUME 92.6 fL (79-99); MONOCYTES # (AUTO) 1.4 K/uL (0.1-1.0); MONOCYTES % (AUTO) 6.9 % (3.0-13.0); NEUTROPHILS # (AUTO) 17.1 K/uL (1.8-7.7); NEUTROPHILS % (AUTO) 81.6 % (40.0-77.0); PLATELET COUNT (AUTO) 278 K/uL (130-400); RED BLOOD CELL COUNT(AUTO) 2.42 MIL/uL (4.50-6.20); RED CELL DISTRIBUTION WIDTH 13.8 % (11.0-15.5); WHITE BLOOD COUNT (AUTO) 20.9 K/uL (4.8-10.8)
[2025-01-13 06:25] LABS: ALBUMIN 2.1 g/dL (3.5-5.0); BILIRUBIN,TOTAL 2.8 mg/dL (0.2-1.0); CREATININE 0.7 mg/dL (0.5-1.3); MAGNESIUM 1.7 mg/dL (1.80-2.40); POTASSIUM 3.8 mmol/L (3.5-5.1); TOTAL PROTEIN, SERUM 4.9 g/dL (6.0-8.3)
--- NOTE | 2025-01-13 07:27 | PN ---
GASTROENTEROLOGY PROGRESS NOTE Date of Visit: Jan 13, 2025 Time of Visit: 07:26 Events / Notes: No acute events overnight. Patient is status post ERCP. Plan of care discussed. Review of Systems: CONSTITUTIONAL: No malaise or change in sensation of wellbeing. ENMT: No rhinorrhea, otorrhea, sinus pain, ear ache. CARDIOVASCULAR: No angina, palpitations, orthopnea or paroxysmal dyspnea. RESPIRATORY: No SOB. GASTROINTESTINAL: No abdominal pain, nausea, vomiting, diarrhea, hematemesis, melena or change in the patient's habitual bowel movements consistency/number. GENITOURINARY: No dysuria, hematuria or change in bladder continence. MUSCULOSKELETAL: No new muscle pain or decrease in muscular strength. No new joint swelling, redness or tenderness. SKIN: No new rash. Physical Exam: GEN: Awake, alert, oriented in person, time and place, and in no acute distress. HEENT: No sinus tenderness. Tympanic membranes were not examined. No rhinorrhea. Oral pharyngeal mucosa is pink, moist and within normal limits. Neck is supple with no cervical lymphadenopathy, thyromegaly or JVD. CHEST: Inspection, palpation and percussion of the chest were unremarkable. Lung auscultation revealed normal breath sounds bilaterally. CARDIAC: PMI is within normal limits. Heart sounds are regular. Normal S1, S2. No gallop or murmur. ABD: Soft, non-tender and not distended. No peritoneal signs on palpation. No organomegaly. Normal bowel sounds. EXT: No cyanosis or clubbing. No edema. SKIN: Intact. No rashes. JOINTS: No evidence of synovitis or acute arthritis. NEURO: Alert and oriented to name, place and person. Cranial nerve examination is unremarkable. No focal motor deficits. Normal speech. Gait is normal. Strength is normal. Vital Signs (last 8hr) Date Time Temp Pulse Resp B/P (MAP) Pulse Ox O2 Delivery O2 Flow Rate FiO2 01/13/25 04:00 99.1 115 18 107/64 97 Room Air 01/13/25 01:13 137 112/65 01/13/25 00:00 99.9 137 18 112/65 96 Room Air Laboratory: [ ] Laboratory: Test 01/13/25 05:48 01/12/25 18:40 01/12/25 14:39 01/12/25 03:45 Range/Units White Blood Count 20.9 H 4.8-10.8 K/uL Red Blood Count 2.42 L 4.50-6.20 MIL/uL Hemoglobin 7.3 L 14.0-18.0 g/dL Hematocrit 22.4 L 42-54 % Mean Corpuscular Volume 92.6 79-99 fL Mean Corpuscular Hemoglobin 30.2 27.0-33.0 pg Mean Corpuscular Hemoglobin Concent 32.6 32.0-36.0 g/dL Red Cell Distribution Width 13.8 11.0-15.5 % Platelet Count 278 # 130-400 K/uL Mean Platelet Volume 9.8 7.5-10.5 fL Immature Granulocyte % (Auto) 2.5 H 0-1 % Neutrophils (%) (Auto) 81.6 H 40.0-77.0 % Lymphocytes (%) (Auto) 8.8 L 21.0-51.0 % Monocytes (%) (Auto) 6.9 3.0-13.0 % Eosinophils (%) (Auto) 0.0 0.0-8.0 % Basophils (%) (Auto) 0.2 0.0-5.0 % Neutrophils # (Auto) 17.1 H 1.8-7.7 K/uL Lymphocytes # (Auto) 1.8 1.0-4.8 K/uL Monocytes # (Auto) 1.4 H 0.1-1.0 K/uL Eosinophils # (Auto) 0.00 0.00-0.70 K/uL Basophils # (Auto) 0.04 0.00-0.20 K/uL Absolute Immature Granulocyte (auto 0.53 0-1 K/uL Nucleated Red Blood Cells 0.0 0.0-0.19 % Sodium Level 134 L 136-145 mmol/L Potassium Level 3.8 3.5-5.1 mmol/L Chloride Level 102 101-111 mmol/L Carbon Dioxide Level 29 21-32 mmol/L Blood Urea Nitrogen 8 7-18 mg/dL Creatinine 0.7 0.5-1.3 mg/dL Glomerular Filtration Rate Calc 124 >90 mL/min Random Glucose 94 70-105 mg/dL Total Calcium 7.4 L 8.5-10.1 mg/dL Magnesium Level 1.70 L 1.80-2.40 mg/dL Total Bilirubin 2.8 H 0.2-1.0 mg/dL Aspartate Amino Transf (AST/SGOT) 95 H 10-37 U/L Alanine Aminotransferase (ALT/SGPT) 216 H 12-78 U/L Alkaline Phosphatase 132 50-136 U/L Total Protein 4.9 L 6.0-8.3 g/dL Albumin 2.1 L 3.5-5.0 g/dL Lactic Acid Level 0.9 0.8-2.5 mmol/L Prothrombin Time 11.4 9.6-11.6 SEC Prothromb Time International Ratio 1.08 0.85-1.15 Lipase 820 *H 16-77 U/L Test 01/12/25 03:17 Range/Units Whole Blood Glucose 147 H 70-110 MG/DL Current Medications Medications (Trade) Dose Ordered Sig/Nina Route PRN Reason Start Time Stop Time Status Last Admin Dose Admin Acetaminophen (TYLenol 325MG TAB) 650 mg Q6H PRN PO MILD PAIN (1-3) 01/09/25 15:00 02/08/25 14:59 Acetaminophen/ Codeine Phosphate (TYLenol-coDEINE TAB) 1 tab Q4H PRN PO MODERATE PAIN (4-6) 01/10/25 10:00 01/11/25 11:14 DC Acetaminophen/ Codeine Phosphate (TYLenol-coDEINE TAB) 1 tab Q4H PRN PO MODERATE PAIN (4-6) 01/11/25 18:30 02/10/25 18:29 01/13/25 04:29 1 TAB Acetaminophen/ Hydrocodone Bitart (VicoDIN ES/ NORco ES 7.5/ 325MG) 1 tab Q4H PRN PO MODERATE PAIN (4-6) 01/11/25 11:30 01/11/25 18:04 DC Hydralazine HCl (APRESOLine 20MG INJ) 5 mg Q4H PRN IV ADMINISTER FOR SBP > 160 01/09/25 18:30 02/08/25 18:29 Ketorolac Tromethamine (toRADol) 15 mg Q8H PRN IV MODERATE PAIN (4-6) IF NPO 01/09/25 15:30 01/11/25 11:14 DC 01/11/25 00:49 15 MG Lactated Ringer's 1,000 ml @ 125 mls/hr Q8H IV 01/09/25 15:00 02/08/25 14:59 01/13/25 03:58 125 MLS/HR Magnesium Sulfate 50 ml @ 0 mls/hr PROTOCOL PRN IV low mag level 01/10/25 10:00 02/09/25 09:59 01/12/25 10:06 25 MLS/HR Morphine Sulfate (morPHINE 2MG SYG) 2 mg Q6H PRN IVP SEVERE PAIN (7-10) 01/09/25 15:30 01/16/25 15:29 01/11/25 20:41 2 MG Ondansetron HCl (zoFRAN 4MG INJ) 4 mg Q6H PRN IVP NAUSEA/VOMITING 01/09/25 15:00 02/08/25 14:59 01/11/25 20:41 4 MG Pantoprazole Sodium (PROTonix 40MG INJ) 40 mg Q24H IVP 01/09/25 15:00 02/08/25 14:59 01/12/25 14:31 40 MG Piperacillin Sod/ Tazobactam Sod (Zosyn 3.375gm+NS 50ml) 3.375 gm Q8H IVPB 01/09/25 19:00 01/19/25 18:59 01/13/25 03:51 3.375 GM Potassium Chloride 100 ml @ 100 mls/hr AD PRN IV POTASSIUM PROTOCOL 01/10/25 10:00 02/09/25 09:59 Potassium Chloride (K-Dur/Klor-Con 20meq) 20 meq AD PRN PO POTASSIUM PROTOCOL 01/10/25 10:00 02/09/25 09:59 Potassium Chloride (KCl 10% Elixir 20meq/15ml) 20 meq AD PRN PO POTASSIUM PROTOCOL 01/10/25 10:00 02/09/25 09:59 Sodium Chloride 500 ml @ 0 mls/hr Q0M IV 01/12/25 03:30 01/12/25 15:37 DC Sodium Chloride 500 ml @ 0 mls/hr Q0M IV 01/12/25 15:30 02/11/25 15:29 01/12/25 15:43 25 MLS/HR Sodium Chloride (NS 50ml) 50 ml AD IV 01/09/25 19:00 01/11/25 06:26 DC Thiamine HCl (Vitamin B-1) 100 mg Q24H IVP 01/09/25 15:00 02/08/25 14:59 01/12/25 14:31 100 MG Diagnostics / Radiology: [COPY/PASTE HERE IF NO REPORTS PLEASE DELETE SECTION] Assessment: [ ] Plan: Patient to f/u outpatient for stent removal Continue GI prophylaxis Advance diet as tolerated Avoid NSAIDs Antireflux measures Monitor H&H and transfuse as needed Call with questions, concerns or change in clinical status Patient to follow-up at clinic post discharge Thank you for this consult GEORGETTE C[employer]ON [employer] EQUIPMENT ASSEMBLER Jan 13, 2025 07:27
--- NOTE | 2025-01-13 07:33 | NUR ---
RECEIVED CALL FROM DR. SHERIDAN REGARDING PATIENT'S MORNING LABS. PER DR. SHERIDAN, PATIENT IS TO HAVE HEMOGLOBIN AND HEMATOCRIT REDRAWN AT NOON AND RESULTS ARE TO BE COMMUNICATED TO MD. PER DR. SHERIDAN, BLOOD TRANSFUSION IS TO WAIT UNTIL AFTER THE RESULTS OF THE HEMOGLOBIN AT HEMATOCRIT AT NOON.
--- NOTE | 2025-01-13 08:46 | NUR ---
SUBSTANCE ABUSE Sw met with pt who admits to marijuana and cocaine abuse since high school. Pt states he has been to rehab multiple times and currently uses [facility] to attend AA meetings. Pt states that [facility] has been helpful to him. Pt states he has good support system in place with his mother. Pt denies need for substance resources offered. Pt states he will continue with [facility]. Nurse updated.
--- NOTE | 2025-01-13 11:13 | PRN ---
Patient was heart rate coming down but still remains orthostatic H and H is down this morning 7.3 Urine output and white count improved tachycardia improve Abdomen soft mild incisional tenderness Sepsis secondary to cholangitis purulent cholecystitis Give 1 unit of packed red cells today monitor H&H continue IV antibiotics if H&H is stable may advance diet as tolerated. MANDEEP SHERIDAN MD Jan 13, 2025 11:13
[2025-01-13] MEDS ORDERED: IOHEXOL-350 75 ML VIAL IV ONE (17:00)
--- NOTE | 2025-01-13 17:02 | PN ---
[facility] PROGRESS NOTE Date of Service: Jan 13, 2025 Time of Service: 16:52 SUBJECTIVE: [ ] This is a 34-year-old was admitted on 01/09/2025 with chief complaints of left upper quadrant abdominal pain associated with nausea and vomiting. ER workup was consistent with acute cholecystitis biliary colic with multiple cholelithiasis, GI was consulted for possible ERCP general surgeon we will wait most likely lap keyonna tomorrow. Patient was made aware verbalized understanding. 01/11/25 Patient is a 34-male admitted for acute cholecystitis and suspected extrahepatic biliary obstruction. He underwent laparoscopic cholecystectomy today and ERCP yesterday due to elevated bilirubin, transaminitis, and imaging findings concerning for cholecystitis. Postoperative status patient was examined based side post surgery, is conscious, stable and slowly recovering. Mild postop discomfort but no nausea vomiting or significant pain. No fever chills or shortness of breath. Vital signs are stable postop and blood pressure at 130 5 x 79 mmHg postop dressing appears dry clean and intact. His postop hemoglobin and hematocrit are stable with 14.1 and 44.4. ERCP findings revealed choledocholithiasis found with partial removal accomplished via biliary sphincterotomy no stent was placed. A biliary sphincterotomy was performed. Biliary tree swept, 1 stone was removed. Three stones remain with5 FR by3 cm plastic stent plus 10 FR by 5 cm plastic stent placed in pancreatic biliary duct. Pus seen exiting the ampulla concerns for cholangitis. Recommendations with the removal biliary stent in 4 weeks at repeat ERCP outpatient visit 01/12/25 Patient was examined at bedside, case was discussed with RN. 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 Found slightly drowsy, sleeping in bed, but arousable. BP fluctuations and tachycardia persistent. General surgery has been reconsulted for evaluation of postop changes. Acute hemoglobin drop from 11.0-8.6 and hematocrit from 33.1 to 26.0 concerns for postop bleeding. Serum lactate increased to 3.9 possible hypoperfusion or sepsis. Lipase trending down. H and H monitoring q.6h initiated. 01/13/25 The patient feels much better, increased oral fluid intake. Conversing oriented alert awake. No new dizziness, denies abdominal pain. But the hemoglobin dropped from 8.6-7.3 today. 1 unit of packed RBC was transfused, post herman sfusion hemoglobin at 8.3 And hematocrit at . Lactic acid improved from 3.9- 0.9. Bilirubin improving yesterday it was 3.3-2.8. WBC count improved from 28.7-20.9. CT scan of abdomen with contrast was ordered to evaluate possible intra-abdominal bleeding. The attending surgeon on the patient was updated of these findings and she agreed upon the plan. REVIEW OF SYSTEMS CONSTITUTIONAL: Denies fevers, chills, or night sweats. No unintentional weight loss reported. NEUROLOGICAL: Denies headache, amaurosis fugax, motor weakness, sensory deficit, vertigo/spinning sensation, gait abnormalities, or tremors. ENT: No hearing loss, otalgia, otorrhea, rhinitis, rhinorrhea, hoarseness, or sore throat. CARDIOVASCULAR: Denies any exertional angina, dyspnea on exertion, orthopnea, paroxysmal nocturnal dyspnea, palpitations, life-threatening arrhythmias, claudication. PULMONARY: Denies any shortness of breath, cough, phlegm/sputum, hemoptysis, pleuritic chest pain. SLEEP: Denies morning headaches, daytime somnolence or napping. Denies difficulty falling asleep, staying asleep, waking from sleep. Denies knowledge of snoring. GASTROINTESTINAL: Epigastric abdominal pain with associated nausea and vomiting, chronic history of left upper quadrant pain for about 10 years GENITOURINARY: Denies frequency, urgency, nocturia, hematuria or incontinence (Storage/Irritative symptoms.) Low urinary stream, straining to void, urinary intermittency or hesitancy, splitting of the voiding stream, terminal dribbling. ENDOCRINOLOGIC: Denies polyuria, polydipsia, polyphagia or heat/cold intolerances. HEMATOLOGIC: Denies thrombophilia/previous clots, or coagulopathy/bleeding disorders. ONCOLOGIC: Denies personal history of malignancy. DERMATOLOGIC: Denies rashes or pruritus. PSYCHIATRIC: Denies any suicidal or homicidal ideation. Denies hallucinations. PHYSICAL EXAM GENERAL APPEARANCE: The patient is awake, alert, and oriented, in no acute cardiopulmonary distress. NEUROLOGICAL: Cranial nerves II-XII grossly intact. Motor is 5/5 in bilateral upper and lower extremities proximal to distal. No sensory deficits. HEENT: Face is symmetric. Pupils are equal and reactive. Extraocular movements are intact. NECK: Supple. No JVD. No thyromegaly. No submental, submandibular, pre- /postauricular, occipital or supraclavicular lymphadenopathy. CHEST: Normal chest expansion. No Telemetry. LUNGS: Absence of any rales, rhonchi or any wheezing. CARDIOVASCULAR: Regular. S1 and S2 normal. No appreciable rubs, murmurs or gallops. ABDOMEN: Soft, mild tenderness to palpation of the epigastric and left upper quadrant region, Deleon's sign negative, patient did report that he received IV morphine prior : Deferred. No Curtis. EXTREMITIES: Non-edematous and not cyanotic. No clubbing. Good capillary refill. SKIN: No skin breakdown. Vital Signs (last 8hr) Date Time Temp Pulse Resp B/P (MAP) Pulse Ox O2 Delivery O2 Flow Rate FiO2 01/13/25 16:33 101.5 118 18 119/70 95 Room Air 01/13/25 11:13 138 111/61 96 Room Air 01/13/25 11:12 136 121/64 97 Room Air 01/13/25 11:11 98.6 115 18 112/61 96 Room Air LABS: Laboratory: Test 01/13/25 15:00 01/13/25 05:48 01/12/25 18:40 01/12/25 14:39 Range/Units Hemoglobin 8.3 L 14.0-18.0 g/dL Hematocrit 25.0 L 42-54 % White Blood Count 20.9 H 4.8-10.8 K/uL Red Blood Count 2.42 L 4.50-6.20 MIL/uL Mean Corpuscular Volume 92.6 79-99 fL Mean Corpuscular Hemoglobin 30.2 27.0-33.0 pg Mean Corpuscular Hemoglobin Concent 32.6 32.0-36.0 g/dL Red Cell Distribution Width 13.8 11.0-15.5 % Platelet Count 278 # 130-400 K/uL Mean Platelet Volume 9.8 7.5-10.5 fL Immature Granulocyte % (Auto) 2.5 H 0-1 % Neutrophils (%) (Auto) 81.6 H 40.0-77.0 % Lymphocytes (%) (Auto) 8.8 L 21.0-51.0 % Monocytes (%) (Auto) 6.9 3.0-13.0 % Eosinophils (%) (Auto) 0.0 0.0-8.0 % Basophils (%) (Auto) 0.2 0.0-5.0 % Neutrophils # (Auto) 17.1 H 1.8-7.7 K/uL Lymphocytes # (Auto) 1.8 1.0-4.8 K/uL Monocytes # (Auto) 1.4 H 0.1-1.0 K/uL Eosinophils # (Auto) 0.00 0.00-0.70 K/uL Basophils # (Auto) 0.04 0.00-0.20 K/uL Absolute Immature Granulocyte (auto 0.53 0-1 K/uL Nucleated Red Blood Cells 0.0 0.0-0.19 % Sodium Level 134 L 136-145 mmol/L Potassium Level 3.8 3.5-5.1 mmol/L Chloride Level 102 101-111 mmol/L Carbon Dioxide Level 29 21-32 mmol/L Blood Urea Nitrogen 8 7-18 mg/dL Creatinine 0.7 0.5-1.3 mg/dL Glomerular Filtration Rate Calc 124 >90 mL/min Random Glucose 94 70-105 mg/dL Total Calcium 7.4 L 8.5-10.1 mg/dL Magnesium Level 1.70 L 1.80-2.40 mg/dL Total Bilirubin 2.8 H 0.2-1.0 mg/dL Aspartate Amino Transf (AST/SGOT) 95 H 10-37 U/L Alanine Aminotransferase (ALT/SGPT) 216 H 12-78 U/L Alkaline Phosphatase 132 50-136 U/L Total Protein 4.9 L 6.0-8.3 g/dL Albumin 2.1 L 3.5-5.0 g/dL Lactic Acid Level 0.9 0.8-2.5 mmol/L Prothrombin Time 11.4 9.6-11.6 SEC Prothromb Time International Ratio 1.08 0.85-1.15 Test 01/12/25 03:45 01/12/25 03:17 Range/Units Lipase 820 *H 16-77 U/L Whole Blood Glucose 147 H 70-110 MG/DL Current Medications Medications (Trade) Dose Ordered Sig/Nina Route PRN Reason Start Time Stop Time Status Last Admin Dose Admin Acetaminophen (TYLenol 325MG TAB) 650 mg Q6H PRN PO MILD PAIN (1-3) 01/09/25 15:00 02/08/25 14:59 Acetaminophen/ Codeine Phosphate (TYLenol-coDEINE TAB) 1 tab Q4H PRN PO MODERATE PAIN (4-6) 01/10/25 10:00 01/11/25 11:14 DC Acetaminophen/ Codeine Phosphate (TYLenol-coDEINE TAB) 1 tab Q4H PRN PO MODERATE PAIN (4-6) 01/11/25 18:30 02/10/25 18:29 01/13/25 12:49 1 TAB Acetaminophen/ Hydrocodone Bitart (VicoDIN ES/ NORco ES 7.5/ 325MG) 1 tab Q4H PRN PO MODERATE PAIN (4-6) 01/11/25 11:30 01/11/25 18:04 DC Hydralazine HCl (APRESOLine 20MG INJ) 5 mg Q4H PRN IV ADMINISTER FOR SBP > 160 01/09/25 18:30 02/08/25 18:29 Ketorolac Tromethamine (toRADol) 15 mg Q8H PRN IV MODERATE PAIN (4-6) IF NPO 01/09/25 15:30 01/11/25 11:14 DC 01/11/25 00:49 15 MG Lactated Ringer's 1,000 ml @ 125 mls/hr Q8H IV 01/09/25 15:00 02/08/25 14:59 01/13/25 03:58 125 MLS/HR Magnesium Sulfate 50 ml @ 0 mls/hr PROTOCOL PRN IV low mag level 01/10/25 10:00 02/09/25 09:59 01/12/25 10:06 25 MLS/HR Morphine Sulfate (morPHINE 2MG SYG) 2 mg Q6H PRN IVP SEVERE PAIN (7-10) 01/09/25 15:30 01/16/25 15:29 01/11/25 20:41 2 MG Ondansetron HCl (zoFRAN 4MG INJ) 4 mg Q6H PRN IVP NAUSEA/VOMITING 01/09/25 15:00 02/08/25 14:59 01/11/25 20:41 4 MG Pantoprazole Sodium (PROTonix 40MG INJ) 40 mg Q24H IVP 01/09/25 15:00 02/08/25 14:59 01/12/25 14:31 40 MG Piperacillin Sod/ Tazobactam Sod (Zosyn 3.375gm+NS 50ml) 3.375 gm Q8H IVPB 01/09/25 19:00 01/19/25 18:59 01/13/25 12:52 3.375 GM Potassium Chloride 100 ml @ 100 mls/hr AD PRN IV POTASSIUM PROTOCOL 01/10/25 10:00 02/09/25 09:59 Potassium Chloride (K-Dur/Klor-Con 20meq) 20 meq AD PRN PO POTASSIUM PROTOCOL 01/10/25 10:00 02/09/25 09:59 Potassium Chloride (KCl 10% Elixir 20meq/15ml) 20 meq AD PRN PO POTASSIUM PROTOCOL 01/10/25 10:00 02/09/25 09:59 Sodium Chloride 500 ml @ 0 mls/hr Q0M IV 01/12/25 03:30 01/12/25 15:37 DC Sodium Chloride 500 ml @ 0 mls/hr Q0M IV 01/12/25 15:30 02/11/25 15:29 01/12/25 15:43 25 MLS/HR Sodium Chloride (NS 50ml) 50 ml AD IV 01/09/25 19:00 01/11/25 06:26 DC Thiamine HCl (Vitamin B-1) 100 mg Q24H IVP 01/09/25 15:00 02/08/25 14:59 01/12/25 14:31 100 MG DIAGNOSTICS / RADIOLOGY: [ ] PATIENT: SHERYL HARVEY MR#: [id number] : 1990 SEX: M AGE: 34 LOCATION: [facility] ORDER 38 STATUS: ADM IN REPORT#: [id number] SERVICE 37 REASON: VERIFY PICC PLACEMENT ORDERING PHYSICIAN: DEBORAH ALONZO MD PROCEDURE: CXR1VW - CHEST 1VW CHEST 1VW HISTORY: PICC line placement COMPARISON: 01/09/2025 FINDINGS: A frontal projection of the chest was obtained. Mild bilateral pulmonary infiltrates are seen may be related to mild pulmonary vascular congestion with possible superimposed pneumonitis. The heart is borderline enlarged. Right venous catheter is seen with distal tip in plane of the superior vena cava. Poor inspiratory effort is seen. IMPRESSION: 1. Mild bilateral pulmonary infiltrates are seen may be related to mild pulmonary vascular congestion with possible superimposed pneumonitis. DICTATED BY: VAL VILLALOBOS MD DATE: 01/12/252134 ELECTRONICALLY SIGNED BY: VAL VILLALOBOS MD DATE: 01/12/252138 ASSESSMENT: Symptomatic biliary colic with multiple cholelithiasis, POA Suspected acute cholecystitis, POA Leukocytosis, POA Dehydration, POA History of long-term cocaine use disorder, (Last cocaine use, 2 days ago, 01/07/25) POA History of tobacco use disorder, POA Obesity, POA PLAN: Fall risk and orthostasis Fall precautions in place. Obtain orthostatic vitals. Hemodynamics and suspected bleeding General surgery consult for postop bleeding evaluation. H and H q4h monitoring. Transfuse packed RBCs if hemoglobin less than 8. abdominal CT scan can be ordered. Continue IV fluids LR at 125 mL/hour. Monitor BP, HR and overall hemodynamic stability. Infectious disease and possible cholangitis Infectious disease consult already placed. Continue Zosyn 3.375 g IV q.6h. Monitor fever trends, lactate and inflammatory markers. Blood culture has been ordered for worsening fever and WBC. Renal Stict I/Os and urine monitoring every hour. Increase IV fluids per response to bolus. REPEAT BMP and lactate in AM Neurological Neurochecks every 4 hours. Monitor mentation and rule out metabolic encephalopathy. Consider head CT if mental status worsens. Nutrition and fluid management Continue IV fluids. Albumin infusion if level drops further. Substance use and social support Monitor for withdrawal symptoms. cardroom worker consult for substance use counseling. Patient will be admitted to medical-surgical floor under telemetry monitoring Postop status, laparoscopic cholecystectomy done today patient is stable and recovering. ERCP performed with biliary sphincterotomy. One stone removed, 3 remaining biliary stents placed For repeat ERCP in 4 weeks for complete stone removal On outpatient basis. Elevated lipase amylase with biliary obstruction. Improvement expected post stone removal. From ampulla concerns for cholangitis broad-spectrum antibiotics needed continue Zosyn Pain and marijuana use history monitor for withdrawal symptoms. Postoperative care monitor vitals q.4h, assess pain nausea signs of infection. Liquid diet only. Maintain strict I/os. One bolus of NS at 500 mL was administered. IV fluids continue LR at 125 mL/hour for hydration tachycardia subsides and he is hemodynamically stable maintain LR at 80 mL/hour Pain management Continue acetaminophen 650 mg p.o. q.6h p.r.n.. Continue hydrocodone acetaminophen1 tab p.o. q.4h p.r.n. for moderate pain bracket recording ES. [id number] mg IV q.8h p.r.n.. Morphine2 mg IV p.r.n. if severe pain only. Continue Zosyn 3.375 g IV q.6h for at least48 hours. Continue social work involvement for long-term substance abuse cessation counseling. Monitor electrolytes closely and replace as per facility protocol. DVT prophylaxis and GI prophylaxis should be continued. ATTESTATION BY PHYSICIAN I have seen and examined the patient. I reviewed the documentation, medical decision making, and treatment plan as noted by the resident above. I agree with the findings and plan of care. Dequan Rebolledo MD, RAGHAVA R MD Jan 13, 2025 17:02
--- NOTE | 2025-01-13 18:41 | HMCIMG ---
CT ABDOMEN WITH CONTRAST. CT PELVIS WITH CONTRAST INDICATION: Intra-abd bleeding TECHNIQUE: Routine transaxial images using 5 mm slice thickness were obtained after the intravenous infusion of 100 mL of Omnipaque 350 without adverse effects. Oral contrast was not administered. Rectal contrast was not administered. Coronal and sagittal reformatted images acquired for interpretation. CT was performed with one or more of the following dose reduction techniques: Automated exposure control, adjustment of the mA and/or kV according to patient size, or use of iterative reconstruction technique. COMPARISON: 01/09/25 FINDINGS/IMPRESSION: Small left pleural effusion with subjacent passive atelectasis. Biliary stents are in adequate position. Free air scattered throughout the anterior upper abdomen, and expected after gallbladder removal, but small amount of free fluid scattered throughout the abdomen and pelvis, including most pronounced within the pelvis, is more than expected after gallbladder removal. Most importantly, residual 8.6 cm hematoma near the gallbladder fossa. Remainder of the study is unchanged.
--- NOTE | 2025-01-13 18:51 | NUR ---
TELEMONITORING CALL RECVD FROM TELE REGARDING PATIENT BEING TACHY IN THE 130'S WITH FREQUENT PVC'S. NOTIFIED PRIMARY NURSE.
[2025-01-13 19:20] LABS: HEMATOCRIT 24.7 % (42-54)
--- NOTE | 2025-01-13 19:50 | NUR ---
CADENCE WARNER CASING WORKER FROM [facility] RETURNED PAGE, STATING THAT "PATIENT WAS PCU STATUS AND THAT THERE ARE NO PRESSORS ON THE PATIENT. WE NEED PATIENT ICU STATUS."
--- NOTE | 2025-01-13 20:20 | NUR ---
GAVE TELEPHONE REPORT TO WESLEY SALAZAR. PATIENT TO BE TRANSFERRED AT THIS TIME WITH CHAYITO OWEN AND [facility] [place]. RELAYED MESSAGE JAY VILA GAVE REGARDING CONSULT TO MARIE. PATIENT ALERT AND ORIENTED AT THIS TIME, TRANSFERRING BY HOSPITAL BED WITH BELONGINGS IN PATIENT BELONGINGS BAG.
--- NOTE | 2025-01-13 20:36 | NUR ---
Pt arrival note Pt arrives to room 226. HR in 120s ST, other vitals stable. Pt states pain to abdomen/back but it is not acute, states he has had it. Pt wants to wait on PRN medication until after he has a shower shortly. Denies any distress/needs. Pt oriented to room and all education done. Fall risk interventions taken and bed alarm on. Call light in reach.
--- NOTE | 2025-01-13 22:17 | PN ---
INFECTIOUS DISEASE PROGRESS NOTE Date of Service: Jan 13, 2025 SUBJECTIVE: This is a 34-year-old male patient with past medical history of obesity and substance abuse marijuana and cocaine who presented to the hospital with chief complaints of abdominal pain. Patient had no fever however the WBC was elevated at 17.2 and the ESR was 25. Patient also had elevated liver enzymes. A CT of the abdomen and pelvis done on admission showed acute calculous cholecystitis. A HIDA scan confirmed findings of acute cholecystitis and possible extrahepatic biliary obstruction and on 01/10/2025 patient underwent an ERCP with stone extractions. On 01/11/2025 patient underwent a laparoscopic cholecystectomy. Postoperatively today patient's WBC increased to 28.7 and the reason for this consult. Today patient was seen and examined at bedside in room 321. Patient is awake, alert and oriented x 3. Patient is status post Laparoscopic cholecystectomy day # 2. Slight improvement on the WBC to 20.9 today from 28.7 yesterday. The hemoglobin however dropped from 11.0 to 7.3 postop and patient is being transfused 1 unit of PRBC. We will continue on Zosyn. Patient is afebrile this morning, temperature is 99.1. Will continue to follow patient's care. PHYSICAL EXAM EYES: Anicteric. Pupils equal and reactive. HENT: No oral thrush seen, moist Oral mucosa. NECK: Supple, no JVD or thyromegaly. LUNGS: Good air entry. No rales, no rhonchi. CARDIOVASCULAR: S1, S2 regular. No murmur heard. ABDOMEN: Soft, bowel sounds present, no organomegaly. Tender on palpation. Surgical incisions to abdomen. CENTRAL NERVOUS SYSTEM: Awake, alert, oriented x 3. No focal deficits. SKIN: No rashes, no swelling. LYMPHATICS: No peripheral lymphadenopathy. MUSCULOSKELETAL: No joint swelling, erythema or tenderness. EXTREMITIES: No cyanosis or clubbing. BACK: No deformity, no pressure ulcer. GENITOURINARY: No dysuria or hematuria. Vital Sign (Last 12 Hours) 01/13/25 01/13/25 01/13/25 01/13/25 11:11 11:12 11:13 16:33 Temp 98.6 101.5 Pulse 115 136 138 118 Resp 18 18 B/P (MAP) 112/61 121/64 111/61 119/70 Pulse Ox 96 97 96 95 O2 Delivery Room Air Room Air Room Air Room Air 3/5/25 3/5/25 20:00 21:13 Temp 99.1 98.2 Pulse 107 121 Resp 20 18 B/P (MAP) 116/73 127/76 Pulse Ox 96 96 O2 Delivery Room Air Room Air Intake & Output (last 24hrs) 01/12/25 01/12/25 01/13/25 15:00 23:00 07:00 Intake Total 220 ml 540.0 ml Output Total 400 ml 800 ml Balance -180 ml -260.0 ml LABS: Laboratory: Test 01/13/25 19:15 01/13/25 05:48 01/12/25 14:39 01/12/25 03:45 Range/Units Hemoglobin 8.3 L 14.0-18.0 g/dL Hematocrit 24.7 L 42-54 % Lactic Acid Level 0.8 0.8-2.5 mmol/L White Blood Count 20.9 H 4.8-10.8 K/uL Red Blood Count 2.42 L 4.50-6.20 MIL/uL Mean Corpuscular Volume 92.6 79-99 fL Mean Corpuscular Hemoglobin 30.2 27.0-33.0 pg Mean Corpuscular Hemoglobin Concent 32.6 32.0-36.0 g/dL Red Cell Distribution Width 13.8 11.0-15.5 % Platelet Count 278 # 130-400 K/uL Mean Platelet Volume 9.8 7.5-10.5 fL Immature Granulocyte % (Auto) 2.5 H 0-1 % Neutrophils (%) (Auto) 81.6 H 40.0-77.0 % Lymphocytes (%) (Auto) 8.8 L 21.0-51.0 % Monocytes (%) (Auto) 6.9 3.0-13.0 % Eosinophils (%) (Auto) 0.0 0.0-8.0 % Basophils (%) (Auto) 0.2 0.0-5.0 % Neutrophils # (Auto) 17.1 H 1.8-7.7 K/uL Lymphocytes # (Auto) 1.8 1.0-4.8 K/uL Monocytes # (Auto) 1.4 H 0.1-1.0 K/uL Eosinophils # (Auto) 0.00 0.00-0.70 K/uL Basophils # (Auto) 0.04 0.00-0.20 K/uL Absolute Immature Granulocyte (auto 0.53 0-1 K/uL Nucleated Red Blood Cells 0.0 0.0-0.19 % Sodium Level 134 L 136-145 mmol/L Potassium Level 3.8 3.5-5.1 mmol/L Chloride Level 102 101-111 mmol/L Carbon Dioxide Level 29 21-32 mmol/L Blood Urea Nitrogen 8 7-18 mg/dL Creatinine 0.7 0.5-1.3 mg/dL Glomerular Filtration Rate Calc 124 >90 mL/min Random Glucose 94 70-105 mg/dL Total Calcium 7.4 L 8.5-10.1 mg/dL Magnesium Level 1.70 L 1.80-2.40 mg/dL Total Bilirubin 2.8 H 0.2-1.0 mg/dL Aspartate Amino Transf (AST/SGOT) 95 H 10-37 U/L Alanine Aminotransferase (ALT/SGPT) 216 H 12-78 U/L Alkaline Phosphatase 132 50-136 U/L Total Protein 4.9 L 6.0-8.3 g/dL Albumin 2.1 L 3.5-5.0 g/dL Prothrombin Time 11.4 9.6-11.6 SEC Prothromb Time International Ratio 1.08 0.85-1.15 Lipase 820 *H 16-77 U/L Test 01/12/25 03:17 Range/Units Whole Blood Glucose 147 H 70-110 MG/DL ASSESSMENT: Acute cholecystitis, status post laparoscopic cholecystectomy. Sepsis. Biliary obstruction, status post ERCP with stone extraction. Leukocytosis. Post op Anemia requiring blood transfusion. Substance abuse. PLAN: Continue Zosyn. We will follow up on the blood culture results. Continue pain management. Continue IV fluids. We will monitor electrolytes. This case was reviewed and discussed with my supervising physician and the above assessment and plan was formulated and agreed upon. ATTESTATION BY PHYSICIAN I have seen and examined the patient. I reviewed the documentation, medical decision making, and treatment plan as noted by the mid-level provider above. I agree with the findings and plan of care. SERGO MARQUEZ MD, MIRTA L [facility] Jan 13, 2025 22:17
[2025-01-14] VITALS (8 sets, daily range): BP systolic 125–139; BP diastolic 69–84; PULSE 101–109; RESP 17–24; TEMP 97.7–100.1; O2SAT 98–100
[2025-01-14] MEDS: LIDOCAINE 4% ADH..PATCH TP ONE (02:15)
--- NOTE | 2025-01-14 02:20 | NUR ---
Pain management Pt with persistent pain to LLQ of back. Pt states this pain has been ongoing all last couple of days. CT with contrast was done today. Notified Panda THOMPSON on-call of situation including imaging results and pt pain. Pt did find some relief with position change and hot packs. IV and oral pain management ineffective. Lidocaine patch to be attempted. 1x additional dose of morphine 2mg to be given if pain persists.
[2025-01-14] MEDS: morPHINE 2 MG SYG IVP ONE (04:53)
[2025-01-14 05:51] LABS: BASOPHILS # (AUTO) 0.04 K/uL (0.00-0.20); BASOPHILS % (AUTO) 0.2 % (0.0-5.0); EOSINOPHILS # (AUTO) 0.01 K/uL (0.00-0.70); EOSINOPHILS % (AUTO) 0.1 % (0.0-8.0); HEMATOCRIT 23.8 % (42-54); IMMATURE GRANULOCYTE ABSOLUTE 0.69 K/uL (0-1); LYMPHOCYTES # (AUTO) 1.3 K/uL (1.0-4.8); LYMPHOCYTES % (AUTO) 6.8 % (21.0-51.0); MEAN CORPUSCULAR HEMOGLOBIN 30.5 pg (27.0-33.0); MEAN CORPUSCULAR HGB CONC 33.2 g/dL (32.0-36.0); MEAN CORPUSCULAR VOLUME 91.9 fL (79-99); MONOCYTES # (AUTO) 1.3 K/uL (0.1-1.0); MONOCYTES % (AUTO) 6.5 % (3.0-13.0); NEUTROPHILS # (AUTO) 16.3 K/uL (1.8-7.7); NEUTROPHILS % (AUTO) 82.9 % (40.0-77.0); PLATELET COUNT (AUTO) 236 K/uL (130-400); RED BLOOD CELL COUNT(AUTO) 2.59 MIL/uL (4.50-6.20); RED CELL DISTRIBUTION WIDTH 13.8 % (11.0-15.5); WHITE BLOOD COUNT (AUTO) 19.6 K/uL (4.8-10.8)
--- NOTE | 2025-01-14 05:55 | NUR ---
HGB - Paged Per nursing communication, notify provider for under 8 Hgb. Current Hgb 7.9. Paged on-call.
[2025-01-14 06:20] LABS: ALBUMIN 2.1 g/dL (3.5-5.0); BILIRUBIN,TOTAL 2.6 mg/dL (0.2-1.0); CREATININE 0.5 mg/dL (0.5-1.3); MAGNESIUM 1.8 mg/dL (1.80-2.40); POTASSIUM 3.3 mmol/L (3.5-5.1); TOTAL PROTEIN, SERUM 5.3 g/dL (6.0-8.3)
--- NOTE | 2025-01-14 09:53 | PN ---
GASTROENTEROLOGY PROGRESS NOTE Date of Visit: Jan 14, 2025 Time of Visit: 09:53 Events / Notes: No acute events overnight. Patient is status post ERCP. Plan of care discussed. Review of Systems: CONSTITUTIONAL: No malaise or change in sensation of wellbeing. ENMT: No rhinorrhea, otorrhea, sinus pain, ear ache. CARDIOVASCULAR: No angina, palpitations, orthopnea or paroxysmal dyspnea. RESPIRATORY: No SOB. GASTROINTESTINAL: No abdominal pain, nausea, vomiting, diarrhea, hematemesis, melena or change in the patient's habitual bowel movements consistency/number. GENITOURINARY: No dysuria, hematuria or change in bladder continence. MUSCULOSKELETAL: No new muscle pain or decrease in muscular strength. No new joint swelling, redness or tenderness. SKIN: No new rash. Physical Exam: GEN: Awake, alert, oriented in person, time and place, and in no acute distress. HEENT: No sinus tenderness. Tympanic membranes were not examined. No rhinorrhea. Oral pharyngeal mucosa is pink, moist and within normal limits. Neck is supple with no cervical lymphadenopathy, thyromegaly or JVD. CHEST: Inspection, palpation and percussion of the chest were unremarkable. Lung auscultation revealed normal breath sounds bilaterally. CARDIAC: PMI is within normal limits. Heart sounds are regular. Normal S1, S2. No gallop or murmur. ABD: Soft, non-tender and not distended. No peritoneal signs on palpation. No organomegaly. Normal bowel sounds. EXT: No cyanosis or clubbing. No edema. SKIN: Intact. No rashes. JOINTS: No evidence of synovitis or acute arthritis. NEURO: Alert and oriented to name, place and person. Cranial nerve examination is unremarkable. No focal motor deficits. Normal speech. Gait is normal. Strength is normal. Vital Signs (last 8hr) Date Time Temp Pulse Resp B/P (MAP) Pulse Ox O2 Delivery O2 Flow Rate FiO2 01/14/25 07:50 100.0 101 24 132/74 100 Room Air 01/14/25 07:40 99.1 102 24 128/75 96 Room Air 01/14/25 07:35 99.0 107 24 138/84 98 Room Air 01/14/25 07:35 97.7 103 20 125/77 97 Room Air 01/14/25 03:00 98.6 104 18 137/83 96 Room Air Laboratory: [ ] Laboratory: Test 01/14/25 05:40 01/13/25 19:15 01/12/25 14:39 Range/Units White Blood Count 19.6 H 4.8-10.8 K/uL Red Blood Count 2.59 L 4.50-6.20 MIL/uL Hemoglobin 7.9 L 14.0-18.0 g/dL Hematocrit 23.8 L 42-54 % Mean Corpuscular Volume 91.9 79-99 fL Mean Corpuscular Hemoglobin 30.5 27.0-33.0 pg Mean Corpuscular Hemoglobin Concent 33.2 32.0-36.0 g/dL Red Cell Distribution Width 13.8 11.0-15.5 % Platelet Count 236 130-400 K/uL Mean Platelet Volume 9.8 7.5-10.5 fL Immature Granulocyte % (Auto) 3.5 H 0-1 % Neutrophils (%) (Auto) 82.9 H 40.0-77.0 % Lymphocytes (%) (Auto) 6.8 L 21.0-51.0 % Monocytes (%) (Auto) 6.5 3.0-13.0 % Eosinophils (%) (Auto) 0.1 0.0-8.0 % Basophils (%) (Auto) 0.2 0.0-5.0 % Neutrophils # (Auto) 16.3 H 1.8-7.7 K/uL Lymphocytes # (Auto) 1.3 1.0-4.8 K/uL Monocytes # (Auto) 1.3 H 0.1-1.0 K/uL Eosinophils # (Auto) 0.01 0.00-0.70 K/uL Basophils # (Auto) 0.04 0.00-0.20 K/uL Absolute Immature Granulocyte (auto 0.69 0-1 K/uL Nucleated Red Blood Cells 0.0 0.0-0.19 % Sodium Level 135 L 136-145 mmol/L Potassium Level 3.3 L 3.5-5.1 mmol/L Chloride Level 102 101-111 mmol/L Carbon Dioxide Level 27 21-32 mmol/L Blood Urea Nitrogen 4 L 7-18 mg/dL Creatinine 0.5 0.5-1.3 mg/dL Glomerular Filtration Rate Calc 137 >90 mL/min Random Glucose 98 70-105 mg/dL Total Calcium 7.6 L 8.5-10.1 mg/dL Magnesium Level 1.80 1.80-2.40 mg/dL Total Bilirubin 2.6 H 0.2-1.0 mg/dL Aspartate Amino Transf (AST/SGOT) 60 H 10-37 U/L Alanine Aminotransferase (ALT/SGPT) 162 #H 12-78 U/L Alkaline Phosphatase 140 H 50-136 U/L Total Protein 5.3 L 6.0-8.3 g/dL Albumin 2.1 L 3.5-5.0 g/dL Lactic Acid Level 0.8 0.8-2.5 mmol/L Prothrombin Time 11.4 9.6-11.6 SEC Prothromb Time International Ratio 1.08 0.85-1.15 Current Medications Medications (Trade) Dose Ordered Sig/Nina Route PRN Reason Start Time Stop Time Status Last Admin Dose Admin Acetaminophen (TYLenol 325MG TAB) 650 mg Q6H PRN PO MILD PAIN (1-3) 01/09/25 15:00 02/08/25 14:59 Acetaminophen/ Codeine Phosphate (TYLenol-coDEINE TAB) 1 tab Q4H PRN PO MODERATE PAIN (4-6) 01/10/25 10:00 01/11/25 11:14 DC Acetaminophen/ Codeine Phosphate (TYLenol-coDEINE TAB) 1 tab Q4H PRN PO MODERATE PAIN (4-6) 01/11/25 18:30 02/10/25 18:29 01/13/25 21:28 1 TAB Acetaminophen/ Hydrocodone Bitart (VicoDIN ES/ NORco ES 7.5/ 325MG) 1 tab Q4H PRN PO MODERATE PAIN (4-6) 01/11/25 11:30 01/11/25 18:04 DC Hydralazine HCl (APRESOLine 20MG INJ) 5 mg Q4H PRN IV ADMINISTER FOR SBP > 160 01/09/25 18:30 02/08/25 18:29 Ketorolac Tromethamine (toRADol) 15 mg Q8H PRN IV MODERATE PAIN (4-6) IF NPO 01/09/25 15:30 01/11/25 11:14 DC 01/11/25 00:49 15 MG Lactated Ringer's 1,000 ml @ 125 mls/hr Q8H IV 01/09/25 15:00 02/08/25 14:59 01/14/25 04:25 125 MLS/HR Magnesium Sulfate 50 ml @ 0 mls/hr PROTOCOL PRN IV low mag level 01/10/25 10:00 02/09/25 09:59 01/14/25 06:40 25 MLS/HR Morphine Sulfate (morPHINE 2MG SYG) 2 mg Q6H PRN IVP SEVERE PAIN (7-10) 01/09/25 15:30 01/16/25 15:29 01/14/25 01:18 2 MG Ondansetron HCl (zoFRAN 4MG INJ) 4 mg Q6H PRN IVP NAUSEA/VOMITING 01/09/25 15:00 02/08/25 14:59 01/11/25 20:41 4 MG Pantoprazole Sodium (PROTonix 40MG INJ) 40 mg Q24H IVP 01/09/25 15:00 02/08/25 14:59 01/13/25 16:58 40 MG Piperacillin Sod/ Tazobactam Sod (Zosyn 3.375gm+NS 50ml) 3.375 gm Q8H IVPB 01/09/25 19:00 01/19/25 18:59 01/14/25 02:49 3.375 GM Potassium Chloride 100 ml @ 100 mls/hr AD PRN IV POTASSIUM PROTOCOL 01/10/25 10:00 02/09/25 09:59 Potassium Chloride (K-Dur/Klor-Con 20meq) 20 meq AD PRN PO POTASSIUM PROTOCOL 01/10/25 10:00 02/09/25 09:59 Potassium Chloride (KCl 10% Elixir 20meq/15ml) 20 meq AD PRN PO POTASSIUM PROTOCOL 01/10/25 10:00 02/09/25 09:59 Sodium Chloride 500 ml @ 0 mls/hr Q0M IV 01/12/25 03:30 01/12/25 15:37 DC Sodium Chloride 500 ml @ 0 mls/hr Q0M IV 01/12/25 15:30 02/11/25 15:29 01/12/25 15:43 25 MLS/HR Sodium Chloride (NS 50ml) 50 ml AD IV 01/09/25 19:00 01/11/25 06:26 DC Thiamine HCl (Vitamin B-1) 100 mg Q24H IVP 01/09/25 15:00 02/08/25 14:59 01/13/25 16:58 100 MG Diagnostics / Radiology: [COPY/PASTE HERE IF NO REPORTS PLEASE DELETE SECTION] Assessment: [ ] Plan: Patient to f/u outpatient for stent removal Continue GI prophylaxis Advance diet as tolerated Avoid NSAIDs Antireflux measures Monitor H&H and transfuse as needed Call with questions, concerns or change in clinical status Patient to follow-up at clinic post discharge Thank you for this consult GEORGETTE CORDON [employer] Jan 14, 2025 09:53
[2025-01-14] MEDS: PoTASSium chloRIDE 20MEQ ER 20 MEQ ERTAB PO PRN (11:27)
--- NOTE | 2025-01-14 11:53 | PN ---
pt HR down ambulating today tolerating po incision c/d/i abdomen soft h/h down slightly [address] noted clinically improving Vitals/Labs Vital Signs Date Time Temp Pulse Resp B/P (MAP) Pulse Ox O2 Delivery O2 Flow Rate FiO2 01/14/25 10:23 98.4 108 20 130/81 97 Room Air 01/13/25 21:13 0 21 Laboratory Tests 01/13/25 15:00 01/13/25 19:15 01/14/25 05:40 Medications Current Medications Lidocaine HCl 10 ml ONCE ONCE PO Last administered on 01/09/25at 12:12; Start 01/09/25 at 12:00; Stop 01/09/25 at 12:01; Status DC Al Hydroxide/Mg Hydroxide 30 ml ONCE ONCE PO Last administered on 01/09/25at 12:12; Start 01/09/25 at 12:00; Stop 01/09/25 at 12:01; Status DC Famotidine 20 mg ONCE ONCE PO Last administered on 01/09/25at 12:12; Start 01/09/25 at 12:00; Stop 01/09/25 at 12:01; Status DC Dicyclomine HCl 10 mg ONCE ONCE PO Last administered on 01/09/25at 12:12; Start 01/09/25 at 12:00; Stop 01/09/25 at 12:01; Status DC Sodium Chloride 1,000 ml @ 0 mls/hr ONCE ONCE IV Last administered on 01/09/25at 13:00; Start 01/09/25 at 12:30; Stop 01/09/25 at 12:33; Status DC Morphine Sulfate 2 mg ONCE ONCE IVP Last administered on 01/09/25at 13:00; Start 01/09/25 at 12:30; Stop 01/09/25 at 12:33; Status DC Ondansetron HCl 4 mg ONCE ONCE IVP Last administered on 01/09/25at 13:00; Start 01/09/25 at 12:30; Stop 01/09/25 at 12:33; Status DC Iohexol 75 ml STK-MED ONCE IV; Start 01/09/25 at 12:49; Stop 01/09/25 at 12:49; Status DC Piperacillin Sod/ Tazobactam Sod 3.375 gm ONCE ONCE IVPB Last administered on 01/09/25at 13:39; Start 01/09/25 at 14:00; Stop 01/09/25 at 14:01; Status DC Morphine Sulfate 4 mg ONCE ONCE IVP Last administered on 01/09/25at 13:50; Start 01/09/25 at 14:00; Stop 01/09/25 at 14:01; Status DC Lactated Ringer's 1,000 ml @ 125 mls/hr Q8H IV Last administered on 01/14/25at 04:25; Start 01/09/25 at 15:00; Stop 02/08/25 at 14:59 Acetaminophen 650 mg Q6H PRN PO; Start 01/09/25 at 15:00; Stop 02/08/25 at 14:59 Ondansetron HCl 4 mg Q6H PRN IVP Last administered on 01/11/25at 20:41; Start 01/09/25 at 15:00; Stop 02/08/25 at 14:59 Thiamine HCl 100 mg Q24H IVP Last administered on 01/13/25at 16:58; Start 01/09/25 at 15:00; Stop 02/08/25 at 14:59 Piperacillin Sod/ Tazobactam Sod 3.375 gm Q8H IVPB Last administered on 01/14/25at 11:27; Start 01/09/25 at 19:00; Stop 01/19/25 at 18:59 Sodium Chloride 50 ml AD IV; Start 01/09/25 at 19:00; Stop 01/11/25 at 06:26; Status DC Pantoprazole Sodium 40 mg Q24H IVP Last administered on 01/13/25at 16:58; Start 01/09/25 at 15:00; Stop 02/08/25 at 14:59 Ketorolac Tromethamine 15 mg Q8H PRN IV Last administered on 01/11/25at 00:49; Start 01/09/25 at 15:30; Stop 01/11/25 at 11:14; Status DC Morphine Sulfate 2 mg Q6H PRN IVP Last administered on 01/14/25at 01:18; Start 01/09/25 at 15:30; Stop 01/16/25 at 15:29 Hydralazine HCl 5 mg Q4H PRN IV; Start 01/09/25 at 18:30; Stop 02/08/25 at 18:29 Acetaminophen/ Codeine Phosphate 1 tab Q4H PRN PO; Start 01/10/25 at 10:00; Stop 01/11/25 at 11:14; Status DC Potassium Chloride 100 ml @ 100 mls/hr AD PRN IV; Start 01/10/25 at 10:00; Stop 02/09/25 at 09:59 Potassium Chloride 20 meq AD PRN PO; Start 01/10/25 at 10:00; Stop 02/09/25 at 09:59 Potassium Chloride 20 meq AD PRN PO Last administered on 01/14/25at 11:27; Start 01/10/25 at 10:00; Stop 02/09/25 at 09:59 Magnesium Sulfate 50 ml @ 0 mls/hr PROTOCOL PRN IV Last administered on 01/14/25at 06:40; Start 01/10/25 at 10:00; Stop 02/09/25 at 09:59 Midazolam HCl 2 mg STK-MED ONCE .ROUTE; Start 01/10/25 at 11:42; Stop 01/10/25 at 11:42; Status DC Rocuronium [place] 50 mg STK-MED ONCE .ROUTE; Start 01/10/25 at 11:42; Stop 01/10/25 at 11:42; Status DC Propofol 200 mg STK-MED ONCE IV; Start 01/10/25 at 11:42; Stop 01/10/25 at 11:42; Status DC Fentanyl Citrate 250 mcg STK-MED ONCE IV; Start 01/10/25 at 11:42; Stop 01/10/25 at 11:43; Status DC Ondansetron HCl 4 mg STK-MED ONCE .ROUTE; Start 01/10/25 at 11:47; Stop 01/10/25 at 11:47; Status DC Iohexol 50 ml STK-MED ONCE IV; Start 01/10/25 at 11:56; Stop 01/10/25 at 11:56; Status DC Atropine Sulfate 1 mg STK-MED ONCE IVP; Start 01/10/25 at 12:47; Stop 01/10/25 at 12:47; Status DC Glycopyrrolate 1 mg STK-MED ONCE .ROUTE; Start 01/10/25 at 13:05; Stop 01/10/25 at 13:06; Status DC Neostigmine Methylsulfate 10 mg STK-MED ONCE IV; Start 01/10/25 at 13:05; Stop 01/10/25 at 13:06; Status DC Indomethacin 100 mg ONCE ONCE RC; Start 01/10/25 at 13:30; Stop 01/10/25 at 13:31; Status DC Nicotine 7 mg ONCE ONCE TD Last administered on 01/10/25at 18:24; Start 01/10/25 at 18:30; Stop 01/10/25 at 18:31; Status DC Dexamethasone Sodium Phosphate 10 mg STK-MED ONCE .ROUTE; Start 01/11/25 at 07:31; Stop 01/11/25 at 07:35; Status DC Lidocaine HCl 100 mg STK-MED ONCE .ROUTE; Start 01/11/25 at 07:31; Stop 01/11/25 at 07:35; Status DC Bupivacaine HCl 5 mg STK-MED ONCE .ROUTE; Start 01/11/25 at 07:31; Stop 01/11/25 at 07:35; Status DC Ondansetron HCl 4 mg STK-MED ONCE .ROUTE; Start 01/11/25 at 07:31; Stop 01/11/25 at 07:35; Status DC Glycopyrrolate 1 mg STK-MED ONCE .ROUTE; Start 01/11/25 at 07:32; Stop 01/11/25 at 07:35; Status DC Propofol 200 mg STK-MED ONCE IV; Start 01/11/25 at 07:32; Stop 01/11/25 at 07:35; Status DC Neostigmine Methylsulfate 10 mg STK-MED ONCE IV; Start 01/11/25 at 07:32; Stop 01/11/25 at 07:35; Status DC Succinylcholine Chloride 200 mg STK-MED ONCE .ROUTE; Start 01/11/25 at 07:32; Stop 01/11/25 at 07:35; Status DC Rocuronium [place] 50 mg STK-MED ONCE .ROUTE; Start 01/11/25 at 07:32; Stop 01/11/25 at 07:35; Status DC Fentanyl Citrate 100 mcg STK-MED ONCE .ROUTE; Start 01/11/25 at 07:32; Stop 01/11/25 at 07:35; Status DC Midazolam HCl 2 mg STK-MED ONCE .ROUTE; Start 01/11/25 at 07:33; Stop 01/11/25 at 07:35; Status DC Lactated Ringer's 1,000 ml @ As Directed STK-MED ONCE IV; Start 01/11/25 at 08:04; Stop 01/11/25 at 08:04; Status DC Fentanyl Citrate 100 mcg STK-MED ONCE .ROUTE; Start 01/11/25 at 08:09; Stop 01/11/25 at 08:09; Status DC Fentanyl Citrate 100 mcg STK-MED ONCE .ROUTE; Start 01/11/25 at 08:21; Stop 01/11/25 at 08:21; Status DC Bupivacaine HCl 150 mg STK-MED ONCE INJ Last administered on 01/11/25at 08:30; Start 01/11/25 at 08:30; Stop 01/11/25 at 08:35; Status DC Epinephrine HCl 1 mg STK-MED ONCE .ROUTE; Start 01/11/25 at 08:32; Stop 01/11/25 at 08:32; Status DC Atropine Sulfate 1 mg STK-MED ONCE IVP; Start 01/11/25 at 08:32; Stop 01/11/25 at 08:32; Status DC Propofol 200 mg STK-MED ONCE IV; Start 01/11/25 at 08:49; Stop 01/11/25 at 08:49; Status DC Metoprolol Tartrate 5 mg STK-MED ONCE IV; Start 01/11/25 at 09:22; Stop 01/11/25 at 09:22; Status DC Succinylcholine Chloride 200 mg STK-MED ONCE .ROUTE; Start 01/11/25 at 09:22; Stop 01/11/25 at 09:23; Status DC Fentanyl Citrate 100 mcg STK-MED ONCE .ROUTE; Start 01/11/25 at 09:36; Stop 01/11/25 at 09:36; Status DC Ondansetron HCl 4 mg STK-MED ONCE .ROUTE Last administered on 01/11/25at 10:22; Start 01/11/25 at 10:13; Stop 01/11/25 at 10:13; Status DC Fentanyl Citrate 100 mcg STK-MED ONCE .ROUTE Last administered on 01/11/25at 10:22; Start 01/11/25 at 10:13; Stop 01/11/25 at 10:13; Status DC Acetaminophen/ Hydrocodone Bitart 1 tab Q4H PRN PO; Start 01/11/25 at 11:30; Stop 01/11/25 at 18:04; Status DC Acetaminophen/ Codeine Phosphate 1 tab Q4H PRN PO Last administered on 01/13/25at 21:28; Start 01/11/25 at 18:30; Stop 02/10/25 at 18:29 Sodium Chloride 500 ml @ 0 mls/hr Q0M IV; Start 01/12/25 at 03:30; Stop 01/12/25 at 15:37; Status DC Sodium Chloride 500 ml @ 0 mls/hr Q0M IV Last administered on 01/12/25at 15:43; Start 01/12/25 at 15:30; Stop 02/11/25 at 15:29 Labetalol HCl 5 mg ONCE ONCE IV Last administered on 01/13/25at 01:13; Start 01/13/25 at 01:00; Stop 01/13/25 at 01:01; Status DC Iohexol 75 ml STK-MED ONCE IV; Start 01/13/25 at 17:00; Stop 01/13/25 at 17:00; Status DC Lidocaine 1 each ONCE ONCE TP Last administered on 01/14/25at 02:15; Start 01/14/25 at 02:30; Stop 01/14/25 at 02:31; Status DC Morphine Sulfate 2 mg ONCE ONCE IVP Last administered on 01/14/25at 04:53; Start 01/14/25 at 05:00; Stop 01/14/25 at 05:01; Status DC MANDEEP SHERIDAN MD Jan 14, 2025 11:53
--- NOTE | 2025-01-14 12:42 | PN ---
INFECTIOUS DISEASE PROGRESS NOTE Date of Service: Jan 14, 2025 SUBJECTIVE: This is a 34-year-old male patient with past medical history of obesity and substance abuse marijuana and cocaine who presented to the hospital with chief complaints of abdominal pain. Patient had no fever however the WBC was elevated at 17.2 and the ESR was 25. Patient also had elevated liver enzymes. A CT of the abdomen and pelvis done on admission showed acute calculous cholecystitis. A HIDA scan confirmed findings of acute cholecystitis and possible extrahepatic biliary obstruction and on 01/10/2025 patient underwent an ERCP with stone extractions. On 01/11/2025 patient underwent a laparoscopic cholecystectomy. Postoperatively today patient's WBC increased to 28.7 and the reason for this consult. Patient was seen and examined at bedside in room 226. Patient was transferred to PCCU due to unstable after surgery. Patient is status post Laparoscopic cholecystectomy on 01/11/2025. The hemoglobin continues low at 7.9 even after the 1 unit of PRBC transfused yesterday. A CT of the abdomen/pelvis was repeated yesterday which showed a residual 8.6 cm hematoma near the gallbladder. There is very minimal bruising around the umbilical area surgical incision, the abdomen however is very soft on palpation with good bowel sounds. Patient has been started on clear liquid diet. Denying nausea or vomiting at this time. Patient will be transfused one more unit of PRBC today and pending General surgery re-evaluation. Patient is awake, alert and oriented x 3. The WBC still slightly elevated at 19.6 and patient having a low-grade fever of 100.0 this morning. We will continue on Zosyn. Will continue to follow patient's care. PHYSICAL EXAM EYES: Anicteric. Pupils equal and reactive. HENT: No oral thrush seen, moist Oral mucosa. NECK: Supple, no JVD or thyromegaly. LUNGS: Good air entry. No rales, no rhonchi. CARDIOVASCULAR: S1, S2 regular. No murmur heard. ABDOMEN: Soft, bowel sounds present, no organomegaly. Tender on palpation. Surgical incisions to abdomen. CENTRAL NERVOUS SYSTEM: Awake, alert, oriented x 3. No focal deficits. SKIN: No rashes, no swelling. LYMPHATICS: No peripheral lymphadenopathy. MUSCULOSKELETAL: No joint swelling, erythema or tenderness. EXTREMITIES: No cyanosis or clubbing. BACK: No deformity, no pressure ulcer. GENITOURINARY: No dysuria or hematuria. Vital Sign (Last 12 Hours) 01/14/25 01/14/25 01/14/25 01/14/25 03:00 07:35 07:35 07:40 Temp 98.6 97.7 99.0 99.1 Pulse 104 103 107 102 Resp 18 20 24 24 B/P (MAP) 137/83 125/77 138/84 128/75 Pulse Ox 96 97 98 96 O2 Delivery Room Air Room Air Room Air Room Air 01/14/25 01/14/25 07:50 10:23 Temp 100.0 98.4 Pulse 101 108 Resp 24 20 B/P (MAP) 132/74 130/81 Pulse Ox 100 97 O2 Delivery Room Air Room Air Intake & Output (last 24hrs) 01/13/25 01/13/25 01/14/25 14:59 22:59 06:59 Intake Total 300 ml 250.0 ml 975.0 ml Output Total 300 ml 1475 ml Balance 300 ml -50.0 ml -500.0 ml LABS: Laboratory: Test 01/14/25 05:40 01/13/25 19:15 01/12/25 14:39 Range/Units White Blood Count 19.6 H 4.8-10.8 K/uL Red Blood Count 2.59 L 4.50-6.20 MIL/uL Hemoglobin 7.9 L 14.0-18.0 g/dL Hematocrit 23.8 L 42-54 % Mean Corpuscular Volume 91.9 79-99 fL Mean Corpuscular Hemoglobin 30.5 27.0-33.0 pg Mean Corpuscular Hemoglobin Concent 33.2 32.0-36.0 g/dL Red Cell Distribution Width 13.8 11.0-15.5 % Platelet Count 236 130-400 K/uL Mean Platelet Volume 9.8 7.5-10.5 fL Immature Granulocyte % (Auto) 3.5 H 0-1 % Neutrophils (%) (Auto) 82.9 H 40.0-77.0 % Lymphocytes (%) (Auto) 6.8 L 21.0-51.0 % Monocytes (%) (Auto) 6.5 3.0-13.0 % Eosinophils (%) (Auto) 0.1 0.0-8.0 % Basophils (%) (Auto) 0.2 0.0-5.0 % Neutrophils # (Auto) 16.3 H 1.8-7.7 K/uL Lymphocytes # (Auto) 1.3 1.0-4.8 K/uL Monocytes # (Auto) 1.3 H 0.1-1.0 K/uL Eosinophils # (Auto) 0.01 0.00-0.70 K/uL Basophils # (Auto) 0.04 0.00-0.20 K/uL Absolute Immature Granulocyte (auto 0.69 0-1 K/uL Nucleated Red Blood Cells 0.0 0.0-0.19 % Sodium Level 135 L 136-145 mmol/L Potassium Level 3.3 L 3.5-5.1 mmol/L Chloride Level 102 101-111 mmol/L Carbon Dioxide Level 27 21-32 mmol/L Blood Urea Nitrogen 4 L 7-18 mg/dL Creatinine 0.5 0.5-1.3 mg/dL Glomerular Filtration Rate Calc 137 >90 mL/min Random Glucose 98 70-105 mg/dL Total Calcium 7.6 L 8.5-10.1 mg/dL Magnesium Level 1.80 1.80-2.40 mg/dL Total Bilirubin 2.6 H 0.2-1.0 mg/dL Aspartate Amino Transf (AST/SGOT) 60 H 10-37 U/L Alanine Aminotransferase (ALT/SGPT) 162 #H 12-78 U/L Alkaline Phosphatase 140 H 50-136 U/L Total Protein 5.3 L 6.0-8.3 g/dL Albumin 2.1 L 3.5-5.0 g/dL Lactic Acid Level 0.8 0.8-2.5 mmol/L Prothrombin Time 11.4 9.6-11.6 SEC Prothromb Time International Ratio 1.08 0.85-1.15 ASSESSMENT: Acute cholecystitis, status post laparoscopic cholecystectomy. Sepsis. Biliary obstruction, status post ERCP with stone extraction. Leukocytosis. Post op Anemia requiring blood transfusion. Substance abuse. PLAN: Continue Zosyn. We will follow up on the blood culture results. Continue pain management. Continue IV fluids. Hemoglobin and hematocrit being monitoring.. We will monitor electrolytes. This case was reviewed and discussed with my supervising physician and the above assessment and plan was formulated and agreed upon. ATTESTATION BY PHYSICIAN I have seen and examined the patient. I reviewed the documentation, medical decision making, and treatment plan as noted by the mid-level provider above. I agree with the findings and plan of care. SERGO AMRQUEZ MD, [facility] Jan 14, 2025 12:42
--- NOTE | 2025-01-14 13:02 | PN ---
[facility] PROGRESS NOTE Date of Service: Jan 14, 2025 Time of Service: 12:59 SUBJECTIVE: [ ] This is a 34-year-old was admitted on 01/09/2025 with chief complaints of left upper quadrant abdominal pain associated with nausea and vomiting. ER workup was consistent with acute cholecystitis biliary colic with multiple cholelithiasis, GI was consulted for possible ERCP general surgeon we will wait most likely lap keyonna tomorrow. Patient was made aware verbalized understanding. 01/11/25 Patient is a 34-male admitted for acute cholecystitis and suspected extrahepatic biliary obstruction. He underwent laparoscopic cholecystectomy today and ERCP yesterday due to elevated bilirubin, transaminitis, and imaging findings concerning for cholecystitis. Postoperative status patient was examined based side post surgery, is conscious, stable and slowly recovering. Mild postop discomfort but no nausea vomiting or significant pain. No fever chills or shortness of breath. Vital signs are stable postop and blood pressure at 130 5 x 79 mmHg postop dressing appears dry clean and intact. His postop hemoglobin and hematocrit are stable with 14.1 and 44.4. ERCP findings revealed choledocholithiasis found with partial removal accomplished via biliary sphincterotomy no stent was placed. A biliary sphincterotomy was performed. Biliary tree swept, 1 stone was removed. Three stones remain with5 FR by3 cm plastic stent plus 10 FR by 5 cm plastic stent placed in pancreatic biliary duct. Pus seen exiting the ampulla concerns for cholangitis. Recommendations with the removal biliary stent in 4 weeks at repeat ERCP outpatient visit 01/12/25 Patient was examined at bedside, case was discussed with RN. 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 Found slightly drowsy, sleeping in bed, but arousable. BP fluctuations and tachycardia persistent. General surgery has been reconsulted for evaluation of postop changes. Acute hemoglobin drop from 11.0-8.6 and hematocrit from 33.1 to 26.0 concerns for postop bleeding. Serum lactate increased to 3.9 possible hypoperfusion or sepsis. Lipase trending down. H and H monitoring q.6h initiated. 01/13/25 The patient feels much better, increased oral fluid intake. Conversing oriented alert awake. No new dizziness, denies abdominal pain. But the hemoglobin dropped from 8.6-7.3 today. 1 unit of packed RBC was transfused, post herman sfusion hemoglobin at 8.3 And hematocrit at . Lactic acid improved from 3.9- 0.9. Bilirubin improving yesterday it was 3.3-2.8. WBC count improved from 28.7-20.9. CT scan of abdomen with contrast was ordered to evaluate possible intra-abdominal bleeding. The attending surgeon on the patient was updated of these findings and she agreed upon the plan. 01/14/25 patient was seen and examined examined. Care discussed with the RN and family by the bedside. Discussed CT findings with surgery.. They are jacob toring his H and H which she was stable. He was also ambulating and tolerating diet.. He was heart rate has got down. We will downgraded him to the regular floors. Continue with surgical recommendations and Infectious Disease recommendation REVIEW OF SYSTEMS CONSTITUTIONAL: Denies fevers, chills, or night sweats. No unintentional weight loss reported. NEUROLOGICAL: Denies headache, amaurosis fugax, motor weakness, sensory deficit, vertigo/spinning sensation, gait abnormalities, or tremors. ENT: No hearing loss, otalgia, otorrhea, rhinitis, rhinorrhea, hoarseness, or sore throat. CARDIOVASCULAR: Denies any exertional angina, dyspnea on exertion, orthopnea, paroxysmal nocturnal dyspnea, palpitations, life-threatening arrhythmias, claudication. PULMONARY: Denies any shortness of breath, cough, phlegm/sputum, hemoptysis, pleuritic chest pain. SLEEP: Denies morning headaches, daytime somnolence or napping. Denies difficulty falling asleep, staying asleep, waking from sleep. Denies knowledge of snoring. GASTROINTESTINAL: Epigastric abdominal pain with associated nausea and vomiting, chronic history of left upper quadrant pain for about 10 years GENITOURINARY: Denies frequency, urgency, nocturia, hematuria or incontinence (Storage/Irritative symptoms.) Low urinary stream, straining to void, urinary intermittency or hesitancy, splitting of the voiding stream, terminal dribbling. ENDOCRINOLOGIC: Denies polyuria, polydipsia, polyphagia or heat/cold intolerances. HEMATOLOGIC: Denies thrombophilia/previous clots, or coagulopathy/bleeding disorders. ONCOLOGIC: Denies personal history of malignancy. DERMATOLOGIC: Denies rashes or pruritus. PSYCHIATRIC: Denies any suicidal or homicidal ideation. Denies hallucinations. PHYSICAL EXAM GENERAL APPEARANCE: The patient is awake, alert, and oriented, in no acute cardiopulmonary distress. NEUROLOGICAL: Cranial nerves II-XII grossly intact. Motor is 5/5 in bilateral upper and lower extremities proximal to distal. No sensory deficits. HEENT: Face is symmetric. Pupils are equal and reactive. Extraocular movements are intact. NECK: Supple. No JVD. No thyromegaly. No submental, submandibular, pre-/p ostauricular, occipital or supraclavicular lymphadenopathy. CHEST: Normal chest expansion. No Telemetry. LUNGS: Absence of any rales, rhonchi or any wheezing. CARDIOVASCULAR: Regular. S1 and S2 normal. No appreciable rubs, murmurs or gallops. ABDOMEN: Soft, mild tenderness to palpation of the epigastric and left upper quadrant region, Deleon's sign negative, patient did report that he received IV morphine prior : Deferred. No Curtis. EXTREMITIES: Non-edematous and not cyanotic. No clubbing. Good capillary refill. SKIN: No skin breakdown. Vital Signs (last 8hr) Date Time Temp Pulse Resp B/P (MAP) Pulse Ox O2 Delivery O2 Flow Rate FiO2 01/14/25 10:23 98.4 108 20 130/81 97 Room Air 01/14/25 07:50 100.0 101 24 132/74 100 Room Air 01/14/25 07:40 99.1 102 24 128/75 96 Room Air 01/14/25 07:35 99.0 107 24 138/84 98 Room Air 01/14/25 07:35 97.7 103 20 125/77 97 Room Air LABS: Laboratory: Test 01/14/25 05:40 01/13/25 19:15 01/12/25 14:39 Range/Units White Blood Count 19.6 H 4.8-10.8 K/uL Red Blood Count 2.59 L 4.50-6.20 MIL/uL Hemoglobin 7.9 L 14.0-18.0 g/dL Hematocrit 23.8 L 42-54 % Mean Corpuscular Volume 91.9 79-99 fL Mean Corpuscular Hemoglobin 30.5 27.0-33.0 pg Mean Corpuscular Hemoglobin Concent 33.2 32.0-36.0 g/dL Red Cell Distribution Width 13.8 11.0-15.5 % Platelet Count 236 130-400 K/uL Mean Platelet Volume 9.8 7.5-10.5 fL Immature Granulocyte % (Auto) 3.5 H 0-1 % Neutrophils (%) (Auto) 82.9 H 40.0-77.0 % Lymphocytes (%) (Auto) 6.8 L 21.0-51.0 % Monocytes (%) (Auto) 6.5 3.0-13.0 % Eosinophils (%) (Auto) 0.1 0.0-8.0 % Basophils (%) (Auto) 0.2 0.0-5.0 % Neutrophils # (Auto) 16.3 H 1.8-7.7 K/uL Lymphocytes # (Auto) 1.3 1.0-4.8 K/uL Monocytes # (Auto) 1.3 H 0.1-1.0 K/uL Eosinophils # (Auto) 0.01 0.00-0.70 K/uL Basophils # (Auto) 0.04 0.00-0.20 K/uL Absolute Immature Granulocyte (auto 0.69 0-1 K/uL Nucleated Red Blood Cells 0.0 0.0-0.19 % Sodium Level 135 L 136-145 mmol/L Potassium Level 3.3 L 3.5-5.1 mmol/L Chloride Level 102 101-111 mmol/L Carbon Dioxide Level 27 21-32 mmol/L Blood Urea Nitrogen 4 L 7-18 mg/dL Creatinine 0.5 0.5-1.3 mg/dL Glomerular Filtration Rate Calc 137 >90 mL/min Random Glucose 98 70-105 mg/dL Total Calcium 7.6 L 8.5-10.1 mg/dL Magnesium Level 1.80 1.80-2.40 mg/dL Total Bilirubin 2.6 H 0.2-1.0 mg/dL Aspartate Amino Transf (AST/SGOT) 60 H 10-37 U/L Alanine Aminotransferase (ALT/SGPT) 162 #H 12-78 U/L Alkaline Phosphatase 140 H 50-136 U/L Total Protein 5.3 L 6.0-8.3 g/dL Albumin 2.1 L 3.5-5.0 g/dL Lactic Acid Level 0.8 0.8-2.5 mmol/L Prothrombin Time 11.4 9.6-11.6 SEC Prothromb Time International Ratio 1.08 0.85-1.15 Current Medications Medications (Trade) Dose Ordered Sig/Nina Route PRN Reason Start Time Stop Time Status Last Admin Dose Admin Acetaminophen (TYLenol 325MG TAB) 650 mg Q6H PRN PO MILD PAIN (1-3) 01/09/25 15:00 02/08/25 14:59 Acetaminophen/ Codeine Phosphate (TYLenol-coDEINE TAB) 1 tab Q4H PRN PO MODERATE PAIN (4-6) 01/10/25 10:00 01/11/25 11:14 DC Acetaminophen/ Codeine Phosphate (TYLenol-coDEINE TAB) 1 tab Q4H PRN PO MODERATE PAIN (4-6) 01/11/25 18:30 02/10/25 18:29 01/13/25 21:28 1 TAB Acetaminophen/ Hydrocodone Bitart (VicoDIN ES/ NORco ES 7.5/ 325MG) 1 tab Q4H PRN PO MODERATE PAIN (4-6) 01/11/25 11:30 01/11/25 18:04 DC Hydralazine HCl (APRESOLine 20MG INJ) 5 mg Q4H PRN IV ADMINISTER FOR SBP > 160 01/09/25 18:30 02/08/25 18:29 Ketorolac Tromethamine (toRADol) 15 mg Q8H PRN IV MODERATE PAIN (4-6) IF NPO 01/09/25 15:30 01/11/25 11:14 DC 01/11/25 00:49 15 MG Lactated Ringer's 1,000 ml @ 125 mls/hr Q8H IV 01/09/25 15:00 02/08/25 14:59 01/14/25 04:25 125 MLS/HR Magnesium Sulfate 50 ml @ 0 mls/hr PROTOCOL PRN IV low mag level 01/10/25 10:00 02/09/25 09:59 01/14/25 06:40 25 MLS/HR Morphine Sulfate (morPHINE 2MG SYG) 2 mg Q6H PRN IVP SEVERE PAIN (7-10) 01/09/25 15:30 01/16/25 15:29 01/14/25 01:18 2 MG Ondansetron HCl (zoFRAN 4MG INJ) 4 mg Q6H PRN IVP NAUSEA/VOMITING 01/09/25 15:00 02/08/25 14:59 01/11/25 20:41 4 MG Pantoprazole Sodium (PROTonix 40MG INJ) 40 mg Q24H IVP 01/09/25 15:00 02/08/25 14:59 01/13/25 16:58 40 MG Piperacillin Sod/ Tazobactam Sod (Zosyn 3.375gm+NS 50ml) 3.375 gm Q8H IVPB 01/09/25 19:00 01/19/25 18:59 01/14/25 11:27 3.375 GM Potassium Chloride 100 ml @ 100 mls/hr AD PRN IV POTASSIUM PROTOCOL 01/10/25 10:00 02/09/25 09:59 Potassium Chloride (K-Dur/Klor-Con 20meq) 20 meq AD PRN PO POTASSIUM PROTOCOL 01/10/25 10:00 02/09/25 09:59 01/14/25 11:27 20 MEQ Potassium Chloride (KCl 10% Elixir 20meq/15ml) 20 meq AD PRN PO POTASSIUM PROTOCOL 01/10/25 10:00 02/09/25 09:59 Sodium Chloride 500 ml @ 0 mls/hr Q0M IV 01/12/25 03:30 01/12/25 15:37 DC Sodium Chloride 500 ml @ 0 mls/hr Q0M IV 01/12/25 15:30 02/11/25 15:29 01/12/25 15:43 25 MLS/HR Sodium Chloride (NS 50ml) 50 ml AD IV 01/09/25 19:00 01/11/25 06:26 DC Thiamine HCl (Vitamin B-1) 100 mg Q24H IVP 01/09/25 15:00 02/08/25 14:59 01/13/25 16:58 100 MG DIAGNOSTICS / RADIOLOGY: [ ] ASSESSMENT: Symptomatic biliary colic with multiple cholelithiasis, POA Suspected acute cholecystitis, POA Leukocytosis, POA Dehydration, POA History of long-term cocaine use disorder, (Last cocaine use, 2 days ago, 01/07/25) POA History of tobacco use disorder, POA Obesity, POA PLAN: Fall risk and orthostasis Fall precautions in place. Obtain orthostatic vitals. Hemodynamics and suspected bleeding General surgery consult for postop bleeding evaluation. H and H q4h monitoring. Transfuse packed RBCs if hemoglobin less than 8. abdominal CT scan can be ordered. Continue IV fluids LR at 125 mL/hour. Monitor BP, HR and overall hemodynamic stability. Infectious disease and possible cholangitis Infectious disease consult already placed. Continue Zosyn 3.375 g IV q.6h. Monitor fever trends, lactate and inflammatory markers. Blood culture has been ordered for worsening fever and WBC. Renal Stict I/Os and urine monitoring every hour. Increase IV fluids per response to bolus. REPEAT BMP and lactate in AM Neurological Neurochecks every 4 hours. Monitor mentation and rule out metabolic encephalopathy. Consider head CT if mental status worsens. Nutrition and fluid management Continue IV fluids. Albumin infusion if level drops further. Substance use and social support Monitor for withdrawal symptoms. shake out worker consult for substance use counseling. Patient will be admitted to medical-surgical floor under telemetry monitoring Postop status, laparoscopic cholecystectomy done today patient is stable and recovering. ERCP performed with biliary sphincterotomy. One stone removed, 3 remaining biliary stents placed For repeat ERCP in 4 weeks for complete stone removal On outpatient basis. Elevated lipase amylase with biliary obstruction. Improvement expected post stone removal. From ampulla concerns for cholangitis broad-spectrum antibiotics needed continue Zosyn Pain and marijuana use history monitor for withdrawal symptoms. Postoperative care monitor vitals q.4h, assess pain nausea signs of infection. Liquid diet only. Maintain strict I/os. One bolus of NS at 500 mL was administered. IV fluids continue LR at 125 mL/hour for hydration tachycardia subsides and he is hemodynamically stable maintain LR at 80 mL/hour Pain management Continue acetaminophen 650 mg p.o. q.6h p.r.n.. Continue hydrocodone acetaminophen1 tab p.o. q.4h p.r.n. for moderate pain bracket recording ES. [id number] mg IV q.8h p.r.n.. Morphine2 mg IV p.r.n. if severe pain only. Continue Zosyn 3.375 g IV q.6h for at least48 hours. Continue social work involvement for long-term substance abuse cessation counseling. Monitor electrolytes closely and replace as per facility protocol. DVT prophylaxis and GI prophylaxis should be continued. NATANAEL SPAIN MD Jan 14, 2025 13:02
[2025-01-14] MEDS: doCUSate SODIUM 100 MG CAP PO ONE (13:15)
[2025-01-14] MEDS ORDERED: CYCLOBENZAPRINE HCL 10 MG TABLET PO PRN (13:30)
--- NOTE | 2025-01-14 14:45 | NUR ---
RECEIVED TRANSFER. PATIENT IS ALERT, ORIENTED IN PERSON, TIME AND PLACE. NO SIGNS OF RESPIRATORY DISTRESS NOTED. CHANGED PICC LINE DRESSING FOLLOWING HOSPITAL POLICIES. DORSALIS PEDIS PULSES PRESENT. 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
[2025-01-14 18:23] LABS: HEMATOCRIT 30.3 % (42-54)
[2025-01-15] VITALS (7 sets, daily range): BP systolic 124–142; BP diastolic 74–85; PULSE 102–112; RESP 17–20; TEMP 98.2–100.3; O2SAT 96–98
--- NOTE | 2025-01-15 05:47 | NUR ---
REPORT GIVEN TO BRAYDEN STRATTON
--- NOTE | 2025-01-15 06:05 | NUR ---
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 Pt noted to have double lumen picc line to [facility].
--- NOTE | 2025-01-15 07:39 | PN ---
GASTROENTEROLOGY PROGRESS NOTE Date of Visit: Jan 15, 2025 Time of Visit: 07:39 Events / Notes: No acute events overnight. Patient is status post ERCP. Plan of care discussed. Review of Systems: CONSTITUTIONAL: No malaise or change in sensation of wellbeing. ENMT: No rhinorrhea, otorrhea, sinus pain, ear ache. CARDIOVASCULAR: No angina, palpitations, orthopnea or paroxysmal dyspnea. RESPIRATORY: No SOB. GASTROINTESTINAL: No abdominal pain, nausea, vomiting, diarrhea, hematemesis, melena or change in the patient's habitual bowel movements consistency/number. GENITOURINARY: No dysuria, hematuria or change in bladder continence. MUSCULOSKELETAL: No new muscle pain or decrease in muscular strength. No new joint swelling, redness or tenderness. SKIN: No new rash. Physical Exam: GEN: Awake, alert, oriented in person, time and place, and in no acute distress. HEENT: No sinus tenderness. Tympanic membranes were not examined. No rhinorrhea. Oral pharyngeal mucosa is pink, moist and within normal limits. Neck is supple with no cervical lymphadenopathy, thyromegaly or JVD. CHEST: Inspection, palpation and percussion of the chest were unremarkable. Lung auscultation revealed normal breath sounds bilaterally. CARDIAC: PMI is within normal limits. Heart sounds are regular. Normal S1, S2. No gallop or murmur. ABD: Soft, non-tender and not distended. No peritoneal signs on palpation. No organomegaly. Normal bowel sounds. EXT: No cyanosis or clubbing. No edema. SKIN: Intact. No rashes. JOINTS: No evidence of synovitis or acute arthritis. NEURO: Alert and oriented to name, place and person. Cranial nerve examination is unremarkable. No focal motor deficits. Normal speech. Gait is normal. Strength is normal. Vital Signs (last 8hr) Date Time Temp Pulse Resp B/P (MAP) Pulse Ox O2 Delivery O2 Flow Rate FiO2 01/15/25 04:00 99.3 103 18 132/81 96 Room Air 01/15/25 00:00 99.1 108 17 138/80 98 Room Air Laboratory: [ ] Laboratory: Test 01/14/25 18:04 01/14/25 05:40 Range/Units Hemoglobin 10.1 #L 14.0-18.0 g/dL Hematocrit 30.3 #L 42-54 % Lactic Acid Level 1.0 0.8-2.5 mmol/L White Blood Count 19.6 H 4.8-10.8 K/uL Red Blood Count 2.59 L 4.50-6.20 MIL/uL Mean Corpuscular Volume 91.9 79-99 fL Mean Corpuscular Hemoglobin 30.5 27.0-33.0 pg Mean Corpuscular Hemoglobin Concent 33.2 32.0-36.0 g/dL Red Cell Distribution Width 13.8 11.0-15.5 % Platelet Count 236 130-400 K/uL Mean Platelet Volume 9.8 7.5-10.5 fL Immature Granulocyte % (Auto) 3.5 H 0-1 % Neutrophils (%) (Auto) 82.9 H 40.0-77.0 % Lymphocytes (%) (Auto) 6.8 L 21.0-51.0 % Monocytes (%) (Auto) 6.5 3.0-13.0 % Eosinophils (%) (Auto) 0.1 0.0-8.0 % Basophils (%) (Auto) 0.2 0.0-5.0 % Neutrophils # (Auto) 16.3 H 1.8-7.7 K/uL Lymphocytes # (Auto) 1.3 1.0-4.8 K/uL Monocytes # (Auto) 1.3 H 0.1-1.0 K/uL Eosinophils # (Auto) 0.01 0.00-0.70 K/uL Basophils # (Auto) 0.04 0.00-0.20 K/uL Absolute Immature Granulocyte (auto 0.69 0-1 K/uL Nucleated Red Blood Cells 0.0 0.0-0.19 % Sodium Level 135 L 136-145 mmol/L Potassium Level 3.3 L 3.5-5.1 mmol/L Chloride Level 102 101-111 mmol/L Carbon Dioxide Level 27 21-32 mmol/L Blood Urea Nitrogen 4 L 7-18 mg/dL Creatinine 0.5 0.5-1.3 mg/dL Glomerular Filtration Rate Calc 137 >90 mL/min Random Glucose 98 70-105 mg/dL Total Calcium 7.6 L 8.5-10.1 mg/dL Magnesium Level 1.80 1.80-2.40 mg/dL Total Bilirubin 2.6 H 0.2-1.0 mg/dL Aspartate Amino Transf (AST/SGOT) 60 H 10-37 U/L Alanine Aminotransferase (ALT/SGPT) 162 #H 12-78 U/L Alkaline Phosphatase 140 H 50-136 U/L Total Protein 5.3 L 6.0-8.3 g/dL Albumin 2.1 L 3.5-5.0 g/dL Current Medications Medications (Trade) Dose Ordered Sig/Nina Route PRN Reason Start Time Stop Time Status Last Admin Dose Admin Acetaminophen (TYLenol 325MG TAB) 650 mg Q6H PRN PO MILD PAIN (1-3) 01/09/25 15:00 02/08/25 14:59 Acetaminophen/ Codeine Phosphate (TYLenol-coDEINE TAB) 1 tab Q4H PRN PO MODERATE PAIN (4-6) 01/10/25 10:00 01/11/25 11:14 DC Acetaminophen/ Codeine Phosphate (TYLenol-coDEINE TAB) 1 tab Q4H PRN PO MODERATE PAIN (4-6) 01/11/25 18:30 02/10/25 18:29 01/15/25 03:24 1 TAB Acetaminophen/ Hydrocodone Bitart (VicoDIN ES/ NORco ES 7.5/ 325MG) 1 tab Q4H PRN PO MODERATE PAIN (4-6) 01/11/25 11:30 01/11/25 18:04 DC Cyclobenzaprine HCl (Cyclobenzaprine HCl) 5 mg TID PRN PO OTHER [SEE ORDER COMMENTS] 01/14/25 13:30 02/13/25 13:29 Hydralazine HCl (APRESOLine 20MG INJ) 5 mg Q4H PRN IV ADMINISTER FOR SBP > 160 01/09/25 18:30 02/08/25 18:29 Ketorolac Tromethamine (toRADol) 15 mg Q8H PRN IV MODERATE PAIN (4-6) IF NPO 01/09/25 15:30 01/11/25 11:14 DC 01/11/25 00:49 15 MG Lactated Ringer's 1,000 ml @ 125 mls/hr Q8H IV 01/09/25 15:00 02/08/25 14:59 01/15/25 01:57 125 MLS/HR Magnesium Sulfate 50 ml @ 0 mls/hr PROTOCOL PRN IV low mag level 01/10/25 10:00 02/09/25 09:59 01/14/25 06:40 25 MLS/HR Morphine Sulfate (morPHINE 2MG SYG) 2 mg Q6H PRN IVP SEVERE PAIN (7-10) 01/09/25 15:30 01/14/25 18:29 DC 01/14/25 01:18 2 MG Ondansetron HCl (zoFRAN 4MG INJ) 4 mg Q6H PRN IVP NAUSEA/VOMITING 01/09/25 15:00 02/08/25 14:59 01/11/25 20:41 4 MG Pantoprazole Sodium (PROTonix 40MG INJ) 40 mg Q24H IVP 01/09/25 15:00 02/08/25 14:59 01/14/25 17:12 40 MG Piperacillin Sod/ Tazobactam Sod (Zosyn 3.375gm+NS 50ml) 3.375 gm Q8H IVPB 01/09/25 19:00 01/19/25 18:59 01/15/25 03:19 3.375 GM Potassium Chloride 100 ml @ 100 mls/hr AD PRN IV POTASSIUM PROTOCOL 01/10/25 10:00 02/09/25 09:59 Potassium Chloride (K-Dur/Klor-Con 20meq) 20 meq AD PRN PO POTASSIUM PROTOCOL 01/10/25 10:00 02/09/25 09:59 01/14/25 13:15 20 MEQ Potassium Chloride (KCl 10% Elixir 20meq/15ml) 20 meq AD PRN PO POTASSIUM PROTOCOL 01/10/25 10:00 02/09/25 09:59 Sodium Chloride 500 ml @ 0 mls/hr Q0M IV 01/12/25 03:30 01/12/25 15:37 DC Sodium Chloride 500 ml @ 0 mls/hr Q0M IV 01/12/25 15:30 02/11/25 15:29 01/12/25 15:43 25 MLS/HR Sodium Chloride (NS 50ml) 50 ml AD IV 01/09/25 19:00 01/11/25 06:26 DC Thiamine HCl (Vitamin B-1) 100 mg Q24H IVP 01/09/25 15:00 02/08/25 14:59 01/14/25 17:12 100 MG Diagnostics / Radiology: [COPY/PASTE HERE IF NO REPORTS PLEASE DELETE SECTION] Assessment: [ ] Plan: Patient to f/u outpatient for stent removal Continue GI prophylaxis Advance diet as tolerated Avoid NSAIDs Antireflux measures Monitor H&H and transfuse as needed Call with questions, concerns or change in clinical status Patient to follow-up at clinic post discharge Thank you for this consult GEORGETTE CORDON Jan 15, 2025 07:39
--- NOTE | 2025-01-15 12:14 | NUR ---
Pt refused to participate in tx session today.
[2025-01-15 13:01] LABS: MEAN CORPUSCULAR HGB CONC 32.9 g/dL (32.0-36.0); MEAN CORPUSCULAR VOLUME 91.2 fL (79-99); RED BLOOD CELL COUNT(AUTO) 3.07 MIL/uL (4.50-6.20); RED CELL DISTRIBUTION WIDTH 14.2 % (11.0-15.5); WHITE BLOOD COUNT (AUTO) 18.1 K/uL (4.8-10.8)
--- NOTE | 2025-01-15 13:09 | PN ---
pt w/o c/o afeb georgina diet awaiting ID recommendations for abx patient clear for d/c fu 1 week Vitals/Labs Vital Signs Date Time Temp Pulse Resp B/P (MAP) Pulse Ox O2 Delivery O2 Flow Rate FiO2 01/15/25 11:30 98.2 107 19 142/77 98 Room Air 01/14/25 20:00 0 21 Laboratory Tests 01/14/25 18:04 01/15/25 12:36 Medications Current Medications Lidocaine HCl 10 ml ONCE ONCE PO Last administered on 01/09/25 12:12; Start 01/09/25 at 12:00; Stop 01/09/25 at 12:01; Status DC Al Hydroxide/Mg Hydroxide 30 ml ONCE ONCE PO Last administered on 01/09/25at 12:12; Start 01/09/25 at 12:00; Stop 01/09/25 at 12:01; Status DC Famotidine 20 mg ONCE ONCE PO Last administered on 01/09/25at 12:12; Start 01/09/25 at 12:00; Stop 01/09/25 at 12:01; Status DC Dicyclomine HCl 10 mg ONCE ONCE PO Last administered on 01/09/25at 12:12; Start 01/09/25 at 12:00; Stop 01/09/25 at 12:01; Status DC Sodium Chloride 1,000 ml @ 0 mls/hr ONCE ONCE IV Last administered on 01/09/25at 13:00; Start 01/09/25 at 12:30; Stop 01/09/25 at 12:33; Status DC Morphine Sulfate 2 mg ONCE ONCE IVP Last administered on 01/09/25at 13:00; Start 01/09/25 at 12:30; Stop 01/09/25 at 12:33; Status DC Ondansetron HCl 4 mg ONCE ONCE IVP Last administered on 01/09/25at 13:00; Start 01/09/25 at 12:30; Stop 01/09/25 at 12:33; Status DC Iohexol 75 ml STK-MED ONCE IV; Start 01/09/25 at 12:49; Stop 01/09/25 at 12:49; Status DC Piperacillin Sod/ Tazobactam Sod 3.375 gm ONCE ONCE IVPB Last administered on 01/09/25at 13:39; Start 01/09/25 at 14:00; Stop 01/09/25 at 14:01; Status DC Morphine Sulfate 4 mg ONCE ONCE IVP Last administered on 01/09/25at 13:50; Start 01/09/25 at 14:00; Stop 01/09/25 at 14:01; Status DC Lactated Ringer's 1,000 ml @ 125 mls/hr Q8H IV Last administered on 01/15/25at 01:57; Start 01/09/25 at 15:00; Stop 02/08/25 at 14:59 Acetaminophen 650 mg Q6H PRN PO; Start 01/09/25 at 15:00; Stop 02/08/25 at 14:59 Ondansetron HCl 4 mg Q6H PRN IVP Last administered on 01/11/25at 20:41; Start 01/09/25 at 15:00; Stop 02/08/25 at 14:59 Thiamine HCl 100 mg Q24H IVP Last administered on 01/14/25at 17:12; Start 01/09/25 at 15:00; Stop 02/08/25 at 14:59 Piperacillin Sod/ Tazobactam Sod 3.375 gm Q8H IVPB Last administered on 01/15/25at 11:24; Start 01/09/25 at 19:00; Stop 01/19/25 at 18:59 Sodium Chloride 50 ml AD IV; Start 01/09/25 at 19:00; Stop 01/11/25 at 06:26; Status DC Pantoprazole Sodium 40 mg Q24H IVP Last administered on 01/14/25at 17:12; Start 01/09/25 at 15:00; Stop 02/08/25 at 14:59 Ketorolac Tromethamine 15 mg Q8H PRN IV Last administered on 01/11/25at 00:49; Start 01/09/25 at 15:30; Stop 01/11/25 at 11:14; Status DC Morphine Sulfate 2 mg Q6H PRN IVP Last administered on 01/14/25at 01:18; Start 01/09/25 at 15:30; Stop 01/14/25 at 18:29; Status DC Hydralazine HCl 5 mg Q4H PRN IV; Start 01/09/25 at 18:30; Stop 02/08/25 at 18:29 Acetaminophen/ Codeine Phosphate 1 tab Q4H PRN PO; Start 01/10/25 at 10:00; Stop 01/11/25 at 11:14; Status DC Potassium Chloride 100 ml @ 100 mls/hr AD PRN IV; Start 01/10/25 at 10:00; Stop 02/09/25 at 09:59 Potassium Chloride 20 meq AD PRN PO; Start 01/10/25 at 10:00; Stop 02/09/25 at 09:59 Potassium Chloride 20 meq AD PRN PO Last administered on 01/14/25at 13:15; Start 01/10/25 at 10:00; Stop 02/09/25 at 09:59 Magnesium Sulfate 50 ml @ 0 mls/hr PROTOCOL PRN IV Last administered on 01/14/25at 06:40; Start 01/10/25 at 10:00; Stop 02/09/25 at 09:59 Midazolam HCl 2 mg STK-MED ONCE .ROUTE; Start 01/10/25 at 11:42; Stop 01/10/25 at 11:42; Status DC Rocuronium [place] 50 mg STK-MED ONCE .ROUTE; Start 01/10/25 at 11:42; Stop 01/10/25 at 11:42; Status DC Propofol 200 mg STK-MED ONCE IV; Start 01/10/25 at 11:42; Stop 01/10/25 at 11:42; Status DC Fentanyl Citrate 250 mcg STK-MED ONCE IV; Start 01/10/25 at 11:42; Stop 01/10/25 at 11:43; Status DC Ondansetron HCl 4 mg STK-MED ONCE .ROUTE; Start 01/10/25 at 11:47; Stop 01/10/25 at 11:47; Status DC Iohexol 50 ml STK-MED ONCE IV; Start 01/10/25 at 11:56; Stop 01/10/25 at 11:56; Status DC Atropine Sulfate 1 mg STK-MED ONCE IVP; Start 01/10/25 at 12:47; Stop 01/10/25 at 12:47; Status DC Glycopyrrolate 1 mg STK-MED ONCE .ROUTE; Start 01/10/25 at 13:05; Stop 01/10/25 at 13:06; Status DC Neostigmine Methylsulfate 10 mg STK-MED ONCE IV; Start 01/10/25 at 13:05; Stop 01/10/25 at 13:06; Status DC Indomethacin 100 mg ONCE ONCE RC; Start 01/10/25 at 13:30; Stop 01/10/25 at 13:31; Status DC Nicotine 7 mg ONCE ONCE TD Last administered on 01/10/25at 18:24; Start 01/10/25 at 18:30; Stop 01/10/25 at 18:31; Status DC Dexamethasone Sodium Phosphate 10 mg STK-MED ONCE .ROUTE; Start 01/11/25 at 07:31; Stop 01/11/25 at 07:35; Status DC Lidocaine HCl 100 mg STK-MED ONCE .ROUTE; Start 01/11/25 at 07:31; Stop 01/11/25 at 07:35; Status DC Bupivacaine HCl 5 mg STK-MED ONCE .ROUTE; Start 01/11/25 at 07:31; Stop 01/11/25 at 07:35; Status DC Ondansetron HCl 4 mg STK-MED ONCE .ROUTE; Start 01/11/25 at 07:31; Stop 01/11/25 at 07:35; Status DC Glycopyrrolate 1 mg STK-MED ONCE .ROUTE; Start 01/11/25 at 07:32; Stop 01/11/25 at 07:35; Status DC Propofol 200 mg STK-MED ONCE IV; Start 01/11/25 at 07:32; Stop 01/11/25 at 07:35; Status DC Neostigmine Methylsulfate 10 mg STK-MED ONCE IV; Start 01/11/25 at 07:32; Stop 01/11/25 at 07:35; Status DC Succinylcholine Chloride 200 mg STK-MED ONCE .ROUTE; Start 01/11/25 at 07:32; Stop 01/11/25 at 07:35; Status DC Rocuronium [place] 50 mg STK-MED ONCE .ROUTE; Start 01/11/25 at 07:32; Stop 01/11/25 at 07:35; Status DC Fentanyl Citrate 100 mcg STK-MED ONCE .ROUTE; Start 01/11/25 at 07:32; Stop 01/11/25 at 07:35; Status DC Midazolam HCl 2 mg STK-MED ONCE .ROUTE; Start 01/11/25 at 07:33; Stop 01/11/25 at 07:35; Status DC Lactated Ringer's 1,000 ml @ As Directed STK-MED ONCE IV; Start 01/11/25 at 08:04; Stop 01/11/25 at 08:04; Status DC Fentanyl Citrate 100 mcg STK-MED ONCE .ROUTE; Start 01/11/25 at 08:09; Stop 01/11/25 at 08:09; Status DC Fentanyl Citrate 100 mcg STK-MED ONCE .ROUTE; Start 01/11/25 at 08:21; Stop 01/11/25 at 08:21; Status DC Bupivacaine HCl 150 mg STK-MED ONCE INJ Last administered on 01/11/25at 08:30; Start 01/11/25 at 08:30; Stop 01/11/25 at 08:35; Status DC Epinephrine HCl 1 mg STK-MED ONCE .ROUTE; Start 01/11/25 at 08:32; Stop 01/11/25 at 08:32; Status DC Atropine Sulfate 1 mg STK-MED ONCE IVP; Start 01/11/25 at 08:32; Stop 01/11/25 at 08:32; Status DC Propofol 200 mg STK-MED ONCE IV; Start 01/11/25 at 08:49; Stop 01/11/25 at 08:49; Status DC Metoprolol Tartrate 5 mg STK-MED ONCE IV; Start 01/11/25 at 09:22; Stop 01/11/25 at 09:22; Status DC Succinylcholine Chloride 200 mg STK-MED ONCE .ROUTE; Start 01/11/25 at 09:22; Stop 01/11/25 at 09:23; Status DC Fentanyl Citrate 100 mcg STK-MED ONCE .ROUTE; Start 01/11/25 at 09:36; Stop 01/11/25 at 09:36; Status DC Ondansetron HCl 4 mg STK-MED ONCE .ROUTE Last administered on 01/11/25at 10:22; Start 01/11/25 at 10:13; Stop 01/11/25 at 10:13; Status DC Fentanyl Citrate 100 mcg STK-MED ONCE .ROUTE Last administered on 01/11/25at 10:22; Start 01/11/25 at 10:13; Stop 01/11/25 at 10:13; Status DC Acetaminophen/ Hydrocodone Bitart 1 tab Q4H PRN PO; Start 01/11/25 at 11:30; Stop 01/11/25 at 18:04; Status DC Acetaminophen/ Codeine Phosphate 1 tab Q4H PRN PO Last administered on 01/15/25at 03:24; Start 01/11/25 at 18:30; Stop 02/10/25 at 18:29 Sodium Chloride 500 ml @ 0 mls/hr Q0M IV; Start 01/12/25 at 03:30; Stop 01/12/25 at 15:37; Status DC Sodium Chloride 500 ml @ 0 mls/hr Q0M IV Last administered on 01/12/25at 15:43; Start 01/12/25 at 15:30; Stop 02/11/25 at 15:29 Labetalol HCl 5 mg ONCE ONCE IV Last administered on 01/13/25at 01:13; Start 01/13/25 at 01:00; Stop 01/13/25 at 01:01; Status DC Iohexol 75 ml STK-MED ONCE IV; Start 01/13/25 at 17:00; Stop 01/13/25 at 17:00; Status DC Lidocaine 1 each ONCE ONCE TP Last administered on 01/14/25at 02:15; Start 01/14/25 at 02:30; Stop 01/14/25 at 02:31; Status DC Morphine Sulfate 2 mg ONCE ONCE IVP Last administered on 01/14/25at 04:53; Start 01/14/25 at 05:00; Stop 01/14/25 at 05:01; Status DC Docusate Sodium 100 mg ONCE ONCE PO Last administered on 01/14/25at 13:15; Start 01/14/25 at 12:00; Stop 01/14/25 at 12:01; Status DC Cyclobenzaprine HCl 5 mg TID PRN PO; Start 01/14/25 at 13:30; Stop 02/13/25 at 13:29 MANDEEP SHERIDAN MD Jan 15, 2025 13:09
--- NOTE | 2025-01-15 14:54 | PN ---
INFECTIOUS DISEASE PROGRESS NOTE Date of Service: Jan 15, 2025 SUBJECTIVE: This is a 34-year-old male patient with past medical history of obesity and substance abuse marijuana and cocaine who presented to the hospital with chief complaints of abdominal pain. Patient had no fever however the WBC was elevated at 17.2 and the ESR was 25. Patient also had elevated liver enzymes. A CT of the abdomen and pelvis done on admission showed acute calculous cholecystitis. A HIDA scan confirmed findings of acute cholecystitis and possible extrahepatic biliary obstruction and on 01/10/2025 patient underwent an ERCP with stone extractions. On 01/11/2025 patient underwent a laparoscopic cholecystectomy. Postoperatively today patient's WBC increased to 28.7 and the reason for this consult. Patient was downgraded to the Medical surgical unit and was seen and examined at bedside in room 329. Patient is status post Laparoscopic cholecystectomy on 01/11/2025. The WBC slowly trending down and is 18.1 today. No fever, temperature is 98.2. Continues on Zosyn. The hemoglobin is stable at 9.2 after the 2 units of PRBC transfusion. Diet has been advanced to heart healthy diet and no reports of nausea or vomiting. Surgical team has cleared patient for discharge. From Infectious Disease standpoint patient can be discharged to home on Augmentin and levofloxacin for 10 days when ready to discharge. Prescription was written. PHYSICAL EXAM EYES: Anicteric. Pupils equal and reactive. HENT: No oral thrush seen, moist Oral mucosa. NECK: Supple, no JVD or thyromegaly. LUNGS: Good air entry. No rales, no rhonchi. CARDIOVASCULAR: S1, S2 regular. No murmur heard. ABDOMEN: Soft, bowel sounds present, no organomegaly. Surgical incisions to abdomen. CENTRAL NERVOUS SYSTEM: Awake, alert, oriented x 3. No focal deficits. SKIN: No rashes, no swelling. LYMPHATICS: No peripheral lymphadenopathy. MUSCULOSKELETAL: No joint swelling, erythema or tenderness. EXTREMITIES: No cyanosis or clubbing. BACK: No deformity, no pressure ulcer. GENITOURINARY: No dysuria or hematuria. Vital Sign (Last 12 Hours) 01/15/25 01/15/25 01/15/25 04:00 08:06 11:30 Temp 99.3 98.6 98.2 Pulse 103 102 107 Resp 18 18 19 B/P (MAP) 132/81 135/83 142/77 Pulse Ox 96 96 98 O2 Delivery Room Air Room Air Room Air Intake & Output (last 24hrs) 01/14/25 01/14/25 01/15/25 15:00 23:00 07:00 Intake Total 0 ml 240 ml Output Total 200 ml 1200 ml Balance -200 ml -960 ml LABS: Laboratory: Test 01/15/25 12:36 01/14/25 18:04 01/14/25 05:40 Range/Units White Blood Count 18.1 H 4.8-10.8 K/uL Red Blood Count 3.07 L 4.50-6.20 MIL/uL Hemoglobin 9.2 L 14.0-18.0 g/dL Hematocrit 28.0 L 42-54 % Mean Corpuscular Volume 91.2 79-99 fL Mean Corpuscular Hemoglobin 30.0 27.0-33.0 pg Mean Corpuscular Hemoglobin Concent 32.9 32.0-36.0 g/dL Red Cell Distribution Width 14.2 11.0-15.5 % Platelet Count 285 130-400 K/uL Mean Platelet Volume 9.8 7.5-10.5 fL Nucleated Red Blood Cells 0.0 0.0-0.19 % Lactic Acid Level 1.0 0.8-2.5 mmol/L Immature Granulocyte % (Auto) 3.5 H 0-1 % Neutrophils (%) (Auto) 82.9 H 40.0-77.0 % Lymphocytes (%) (Auto) 6.8 L 21.0-51.0 % Monocytes (%) (Auto) 6.5 3.0-13.0 % Eosinophils (%) (Auto) 0.1 0.0-8.0 % Basophils (%) (Auto) 0.2 0.0-5.0 % Neutrophils # (Auto) 16.3 H 1.8-7.7 K/uL Lymphocytes # (Auto) 1.3 1.0-4.8 K/uL Monocytes # (Auto) 1.3 H 0.1-1.0 K/uL Eosinophils # (Auto) 0.01 0.00-0.70 K/uL Basophils # (Auto) 0.04 0.00-0.20 K/uL Absolute Immature Granulocyte (auto 0.69 0-1 K/uL Sodium Level 135 L 136-145 mmol/L Potassium Level 3.3 L 3.5-5.1 mmol/L Chloride Level 102 101-111 mmol/L Carbon Dioxide Level 27 21-32 mmol/L Blood Urea Nitrogen 4 L 7-18 mg/dL Creatinine 0.5 0.5-1.3 mg/dL Glomerular Filtration Rate Calc 137 >90 mL/min Random Glucose 98 70-105 mg/dL Total Calcium 7.6 L 8.5-10.1 mg/dL Magnesium Level 1.80 1.80-2.40 mg/dL Total Bilirubin 2.6 H 0.2-1.0 mg/dL Aspartate Amino Transf (AST/SGOT) 60 H 10-37 U/L Alanine Aminotransferase (ALT/SGPT) 162 #H 12-78 U/L Alkaline Phosphatase 140 H 50-136 U/L Total Protein 5.3 L 6.0-8.3 g/dL Albumin 2.1 L 3.5-5.0 g/dL ASSESSMENT: Acute cholecystitis, status post laparoscopic cholecystectomy on 01/11/2025. Sepsis. Biliary obstruction, status post ERCP with stone extraction. Leukocytosis. Post op Anemia requiring blood transfusion. Substance abuse. PLAN: Continue Zosyn. Continue pain management. From Infectious Disease standpoint patient can be discharge to home on Augmentin and levofloxacin x 10 days when ready to discharge. Prescription was written and given to nurse. This case was reviewed and discussed with my supervising physician and the above assessment and plan was formulated and agreed upon. ATTESTATION BY PHYSICIAN I have seen and examined the patient. I reviewed the documentation, medical decision making, and treatment plan as noted by the mid-level provider above. I agree with the findings and plan of care. SERGO MARQUEZ MD, [facility] Jan 15, 2025 14:54
--- NOTE | 2025-01-15 22:16 | PN ---
[facility] PROGRESS NOTE Date of Service: Jan 15, 2025 Time of Service: 22:15 SUBJECTIVE: [ ] This is a 34-year-old was admitted on 01/09/2025 with chief complaints of left upper quadrant abdominal pain associated with nausea and vomiting. ER workup was consistent with acute cholecystitis biliary colic with multiple cholelithiasis, GI was consulted for possible ERCP general surgeon we will wait most likely lap keyonna tomorrow. Patient was made aware verbalized understanding. 01/11/25 Patient is a 34-male admitted for acute cholecystitis and suspected extrahepatic biliary obstruction. He underwent laparoscopic cholecystectomy today and ERCP yesterday due to elevated bilirubin, transaminitis, and imaging findings concerning for cholecystitis. Postoperative status patient was examined based side post surgery, is conscious, stable and slowly recovering. Mild postop discomfort but no nausea vomiting or significant pain. No fever chills or shortness of breath. Vital signs are stable postop and blood pressure at 130 5 x 79 mmHg postop dressing appears dry clean and intact. His postop hemoglobin and hematocrit are stable with 14.1 and 44.4. ERCP findings revealed choledocholithiasis found with partial removal accomplished via biliary sphincterotomy no stent was placed. A biliary sphincterotomy was performed. Biliary tree swept, 1 stone was removed. Three stones remain with5 FR by3 cm plastic stent plus 10 FR by 5 cm plastic stent placed in pancreatic biliary duct. Pus seen exiting the ampulla concerns for cholangitis. Recommendations with the removal biliary stent in 4 weeks at repeat ERCP outpatient visit 01/12/25 Patient was examined at bedside, case was discussed with RN. ciso this patient had an assisted fall patient reported dizziness prior to fall. Found slightly drowsy, sleeping in bed, but arousable. BP fluctuations and tachycardia persistent. General surgery has been reconsulted for evaluation of postop changes. Acute hemoglobin drop from 11.0-8.6 and hematocrit from 33.1 to 26.0 concerns for postop bleeding. Serum lactate increased to 3.9 possible hypoperfusion or sepsis. Lipase trending down. H and H monitoring q.6h initiated. 01/13/25 The patient feels much better, increased oral fluid intake. Conversing oriented alert awake. No new dizziness, denies abdominal pain. But the hemoglobin dropped from 8.6-7.3 today. 1 unit of packed RBC was transfused, post herman sfusion hemoglobin at 8.3 And hematocrit at . Lactic acid improved from 3.9- 0.9. Bilirubin improving yesterday it was 3.3-2.8. WBC count improved from 28.7-20.9. CT scan of abdomen with contrast was ordered to evaluate possible intra-abdominal bleeding. The attending surgeon on the patient was updated of these findings and she agreed upon the plan. 01/14/25 patient was seen and examined examined. Care discussed with the RN and family by the bedside. Discussed CT findings with surgery.. They are jacob toring his H and H which she was stable. He was also ambulating and tolerating diet.. He was heart rate has got down. We will downgraded him to the regular floors. Continue with surgical recommendations and Infectious Disease recommendation 01/15/25 Patient doing well. tolerating diet/likely DC in AM PER ID can go on augmentin and levaquin REVIEW OF SYSTEMS CONSTITUTIONAL: Denies fevers, chills, or night sweats. No unintentional weight loss reported. NEUROLOGICAL: Denies headache, amaurosis fugax, motor weakness, sensory deficit, vertigo/spinning sensation, gait abnormalities, or tremors. ENT: No hearing loss, otalgia, otorrhea, rhinitis, rhinorrhea, hoarseness, or sore throat. CARDIOVASCULAR: Denies any exertional angina, dyspnea on exertion, orthopnea, paroxysmal nocturnal dyspnea, palpitations, life-threatening arrhythmias, claudication. PULMONARY: Denies any shortness of breath, cough, phlegm/sputum, hemoptysis, pleuritic chest pain. SLEEP: Denies morning headaches, daytime somnolence or napping. Denies difficulty falling asleep, staying asleep, waking from sleep. Denies knowledge of snoring. GASTROINTESTINAL: Epigastric abdominal pain with associated nausea and vomiting, chronic history of left upper quadrant pain for about 10 years GENITOURINARY: Denies frequency, urgency, nocturia, hematuria or incontinence (Storage/Irritative symptoms.) Low urinary stream, straining to void, urinary intermittency or hesitancy, splitting of the voiding stream, terminal dribbling. ENDOCRINOLOGIC: Denies polyuria, polydipsia, polyphagia or heat/cold intolerances. HEMATOLOGIC: Denies thrombophilia/previous clots, or coagulopathy/bleeding disorders. ONCOLOGIC: Denies personal history of malignancy. DERMATOLOGIC: Denies rashes or pruritus. PSYCHIATRIC: Denies any suicidal or homicidal ideation. Denies hallucinations. PHYSICAL EXAM GENERAL APPEARANCE: The patient is awake, alert, and oriented, in no acute cardiopulmonary distress. NEUROLOGICAL: Cranial nerves II-XII grossly intact. Motor is 5/5 in bilateral upper and lower extremities proximal to distal. No sensory deficits. HEENT: Face is symmetric. Pupils are equal and reactive. Extraocular movements are intact. NECK: Supple. No JVD. No thyromegaly. No submental, submandibular, pre- /postauricular, occipital or supraclavicular lymphadenopathy. CHEST: Normal chest expansion. No Telemetry. LUNGS: Absence of any rales, rhonchi or any wheezing. CARDIOVASCULAR: Regular. S1 and S2 normal. No appreciable rubs, murmurs or gallops. ABDOMEN: Soft, mild tenderness to palpation of the epigastric and left upper quadrant region, Deleon's sign negative, patient did report that he received IV morphine prior : Deferred. No Curtis. EXTREMITIES: Non-edematous and not cyanotic. No clubbing. Good capillary refill. SKIN: No skin breakdown. Vital Signs (last 8hr) Date Time Temp Pulse Resp B/P (MAP) Pulse Ox O2 Delivery O2 Flow Rate FiO2 01/15/25 20:00 100.2 104 20 130/74 98 Room Air 01/15/25 15:23 99.7 112 17 124/85 99 Room Air LABS: Laboratory: Test 01/15/25 12:36 01/14/25 18:04 01/14/25 05:40 Range/Units White Blood Count 18.1 H 4.8-10.8 K/uL Red Blood Count 3.07 L 4.50-6.20 MIL/uL Hemoglobin 9.2 L 14.0-18.0 g/dL Hematocrit 28.0 L 42-54 % Mean Corpuscular Volume 91.2 79-99 fL Mean Corpuscular Hemoglobin 30.0 27.0-33.0 pg Mean Corpuscular Hemoglobin Concent 32.9 32.0-36.0 g/dL Red Cell Distribution Width 14.2 11.0-15.5 % Platelet Count 285 130-400 K/uL Mean Platelet Volume 9.8 7.5-10.5 fL Nucleated Red Blood Cells 0.0 0.0-0.19 % Lactic Acid Level 1.0 0.8-2.5 mmol/L Immature Granulocyte % (Auto) 3.5 H 0-1 % Neutrophils (%) (Auto) 82.9 H 40.0-77.0 % Lymphocytes (%) (Auto) 6.8 L 21.0-51.0 % Monocytes (%) (Auto) 6.5 3.0-13.0 % Eosinophils (%) (Auto) 0.1 0.0-8.0 % Basophils (%) (Auto) 0.2 0.0-5.0 % Neutrophils # (Auto) 16.3 H 1.8-7.7 K/uL Lymphocytes # (Auto) 1.3 1.0-4.8 K/uL Monocytes # (Auto) 1.3 H 0.1-1.0 K/uL Eosinophils # (Auto) 0.01 0.00-0.70 K/uL Basophils # (Auto) 0.04 0.00-0.20 K/uL Absolute Immature Granulocyte (auto 0.69 0-1 K/uL Sodium Level 135 L 136-145 mmol/L Potassium Level 3.3 L 3.5-5.1 mmol/L Chloride Level 102 101-111 mmol/L Carbon Dioxide Level 27 21-32 mmol/L Blood Urea Nitrogen 4 L 7-18 mg/dL Creatinine 0.5 0.5-1.3 mg/dL Glomerular Filtration Rate Calc 137 >90 mL/min Random Glucose 98 70-105 mg/dL Total Calcium 7.6 L 8.5-10.1 mg/dL Magnesium Level 1.80 1.80-2.40 mg/dL Total Bilirubin 2.6 H 0.2-1.0 mg/dL Aspartate Amino Transf (AST/SGOT) 60 H 10-37 U/L Alanine Aminotransferase (ALT/SGPT) 162 #H 12-78 U/L Alkaline Phosphatase 140 H 50-136 U/L Total Protein 5.3 L 6.0-8.3 g/dL Albumin 2.1 L 3.5-5.0 g/dL Current Medications Medications (Trade) Dose Ordered Sig/Nina Route PRN Reason Start Time Stop Time Status Last Admin Dose Admin Acetaminophen (TYLenol 325MG TAB) 650 mg Q6H PRN PO MILD PAIN (1-3) 01/09/25 15:00 02/08/25 14:59 Acetaminophen/ Codeine Phosphate (TYLenol-coDEINE TAB) 1 tab Q4H PRN PO MODERATE PAIN (4-6) 01/10/25 10:00 01/11/25 11:14 DC Acetaminophen/ Codeine Phosphate (TYLenol-coDEINE TAB) 1 tab Q4H PRN PO MODERATE PAIN (4-6) 01/11/25 18:30 02/10/25 18:29 01/15/25 17:56 1 TAB Acetaminophen/ Hydrocodone Bitart (VicoDIN ES/ NORco ES 7.5/ 325MG) 1 tab Q4H PRN PO MODERATE PAIN (4-6) 01/11/25 11:30 01/11/25 18:04 DC Cyclobenzaprine HCl (Cyclobenzaprine HCl) 5 mg TID PRN PO OTHER [SEE ORDER COMMENTS] 01/14/25 13:30 02/13/25 13:29 Hydralazine HCl (APRESOLine 20MG INJ) 5 mg Q4H PRN IV ADMINISTER FOR SBP > 160 01/09/25 18:30 02/08/25 18:29 Ketorolac Tromethamine (toRADol) 15 mg Q8H PRN IV MODERATE PAIN (4-6) IF NPO 01/09/25 15:30 01/11/25 11:14 DC 01/11/25 00:49 15 MG Lactated Ringer's 1,000 ml @ 125 mls/hr Q8H IV 01/09/25 15:00 02/08/25 14:59 01/15/25 21:42 125 MLS/HR Magnesium Sulfate 50 ml @ 0 mls/hr PROTOCOL PRN IV low mag level 01/10/25 10:00 02/09/25 09:59 01/14/25 06:40 25 MLS/HR Morphine Sulfate (morPHINE 2MG SYG) 2 mg Q6H PRN IVP SEVERE PAIN (7-10) 01/09/25 15:30 01/14/25 18:29 DC 01/14/25 01:18 2 MG Ondansetron HCl (zoFRAN 4MG INJ) 4 mg Q6H PRN IVP NAUSEA/VOMITING 01/09/25 15:00 02/08/25 14:59 01/11/25 20:41 4 MG Pantoprazole Sodium (PROTonix 40MG INJ) 40 mg Q24H IVP 01/09/25 15:00 02/08/25 14:59 01/15/25 16:14 40 MG Piperacillin Sod/ Tazobactam Sod (Zosyn 3.375gm+NS 50ml) 3.375 gm Q8H IVPB 01/09/25 19:00 01/19/25 18:59 01/15/25 19:47 3.375 GM Potassium Chloride 100 ml @ 100 mls/hr AD PRN IV POTASSIUM PROTOCOL 01/10/25 10:00 02/09/25 09:59 Potassium Chloride (K-Dur/Klor-Con 20meq) 20 meq AD PRN PO POTASSIUM PROTOCOL 01/10/25 10:00 02/09/25 09:59 01/14/25 13:15 20 MEQ Potassium Chloride (KCl 10% Elixir 20meq/15ml) 20 meq AD PRN PO POTASSIUM PROTOCOL 01/10/25 10:00 02/09/25 09:59 Sodium Chloride 500 ml @ 0 mls/hr Q0M IV 01/12/25 03:30 01/12/25 15:37 DC Sodium Chloride 500 ml @ 0 mls/hr Q0M IV 01/12/25 15:30 02/11/25 15:29 01/12/25 15:43 25 MLS/HR Sodium Chloride (NS 50ml) 50 ml AD IV 01/09/25 19:00 01/11/25 06:26 DC Thiamine HCl (Vitamin B-1) 100 mg Q24H IVP 01/09/25 15:00 02/08/25 14:59 01/15/25 16:14 100 MG DIAGNOSTICS / RADIOLOGY: [ ] ASSESSMENT: Symptomatic biliary colic with multiple cholelithiasis, POA Suspected acute cholecystitis, POA Leukocytosis, POA Dehydration, POA History of long-term cocaine use disorder, (Last cocaine use, 2 days ago, 01/07/25) POA History of tobacco use disorder, POA Obesity, POA PLAN: Fall risk and orthostasis Fall precautions in place. Obtain orthostatic vitals. Hemodynamics and suspected bleeding General surgery consult for postop bleeding evaluation. H and H q4h monitoring. Transfuse packed RBCs if hemoglobin less than 8. abdominal CT scan can be ordered. Continue IV fluids LR at 125 mL/hour. Monitor BP, HR and overall hemodynamic stability. Infectious disease and possible cholangitis Infectious disease consult already placed. Continue Zosyn 3.375 g IV q.6h. Monitor fever trends, lactate and inflammatory markers. Blood culture has been ordered for worsening fever and WBC. Renal Stict I/Os and urine monitoring every hour. Increase IV fluids per response to bolus. REPEAT BMP and lactate in AM Neurological Neurochecks every 4 hours. Monitor mentation and rule out metabolic encephalopathy. Consider head CT if mental status worsens. Nutrition and fluid management Continue IV fluids. Albumin infusion if level drops further. Substance use and social support Monitor for withdrawal symptoms. tunnel worker consult for substance use counseling. Patient will be admitted to medical-surgical floor under telemetry monitoring Postop status, laparoscopic cholecystectomy done today patient is stable and recovering. ERCP performed with biliary sphincterotomy. One stone removed, 3 remaining biliary stents placed For repeat ERCP in 4 weeks for complete stone removal On outpatient basis. Elevated lipase amylase with biliary obstruction. Improvement expected post stone removal. From ampulla concerns for cholangitis broad-spectrum antibiotics needed continue Zosyn Pain and marijuana use history monitor for withdrawal symptoms. Postoperative care monitor vitals q.4h, assess pain nausea signs of infection. Liquid diet only. Maintain strict I/os. One bolus of NS at 500 mL was administered. IV fluids continue LR at 125 mL/hour for hydration tachycardia subsides and he is hemodynamically stable maintain LR at 80 mL/hour Pain management Continue acetaminophen 650 mg p.o. q.6h p.r.n.. Continue hydrocodone acetaminophen1 tab p.o. q.4h p.r.n. for moderate pain bracket recording ES. [id number] mg IV q.8h p.r.n.. Morphine2 mg IV p.r.n. if severe pain only. Continue Zosyn 3.375 g IV q.6h for at least48 hours. Continue social work involvement for long-term substance abuse cessation counseling. Monitor electrolytes closely and replace as per facility protocol. DVT prophylaxis and GI prophylaxis should be continued. NATANAEL SPAIN MD Jan 15, 2025 22:16
[2025-01-16] VITALS: BP 127/75; PULSE 98; RESP 20; TEMP 98.6
[2025-01-16 04:00] VITALS: BP_SYST 120; PULSE 78; RESP 20; TEMP 98.6
[2025-01-16 08:06] VITALS: BP 131/79; PULSE 106; RESP 18; TEMP 98.8
[2025-01-16 11:23] LABS: HEMATOCRIT 29.5 % (42-54); MEAN CORPUSCULAR HGB CONC 32.5 g/dL (32.0-36.0); MEAN CORPUSCULAR VOLUME 92.2 fL (79-99); RED BLOOD CELL COUNT(AUTO) 3.2 MIL/uL (4.50-6.20); RED CELL DISTRIBUTION WIDTH 14.1 % (11.0-15.5)
[2025-01-16 11:31] VITALS: BP 119/71; PULSE 111; RESP 16; TEMP 98.7
[2025-01-16 11:36] LABS: CREATININE 0.6 mg/dL (0.5-1.3); POTASSIUM 3.5 mmol/L (3.5-5.1)
--- NOTE | 2025-01-16 12:15 | PN ---
INFECTIOUS DISEASE PROGRESS NOTE Date of Service: Jan 16, 2025 SUBJECTIVE: This is a 34-year-old male patient with past medical history of obesity and substance abuse marijuana and cocaine who presented to the hospital with chief complaints of abdominal pain. Patient had no fever however the WBC was elevated at 17.2 and the ESR was 25. Patient also had elevated liver enzymes. A CT of the abdomen and pelvis done on admission showed acute calculous cholecystitis. A HIDA scan confirmed findings of acute cholecystitis and possible extrahepatic biliary obstruction and on 01/10/2025 patient underwent an ERCP with stone extractions. On 01/11/2025 patient underwent a laparoscopic cholecystectomy. Postoperatively today patient's WBC increased to 28.7 and the reason for this consult. Patient was seen and examined at bedside in room 329. Patient is awake, alert and oriented x3. Patient is status post Laparoscopic cholecystectomy on 01/11/2025. Observe bruising on the upper mid abdomen area which patient says is very tender. The repeat CT scan done on 01/13/2025 indicated a residual 8.6 cm hematoma near the gallbladder fossa. On the lab work obtained this morning however, the hemoglobin is stable at 9.6. Patient had a low-grade fever of 100.2 throughout the night. The WBC however has trended down to 16.0 this morning. Continues on Zosyn. Patient is tolerating regular diet well. From Infectious Disease standpoint patient can be discharged to home on Augmentin and levofloxacin for 10 days when ready to discharge. Prescription was written. PHYSICAL EXAM EYES: Anicteric. Pupils equal and reactive. HENT: No oral thrush seen, moist Oral mucosa. NECK: Supple, no JVD or thyromegaly. LUNGS: Good air entry. No rales, no rhonchi. CARDIOVASCULAR: S1, S2 regular. No murmur heard. ABDOMEN: Soft, bowel sounds present, no organomegaly. Surgical incisions to abdomen. CENTRAL NERVOUS SYSTEM: Awake, alert, oriented x 3. No focal deficits. SKIN: No rashes, no swelling. LYMPHATICS: No peripheral lymphadenopathy. MUSCULOSKELETAL: No joint swelling, erythema or tenderness. EXTREMITIES: No cyanosis or clubbing. BACK: No deformity, no pressure ulcer. GENITOURINARY: No dysuria or hematuria. Vital Sign (Last 12 Hours) 01/16/25 01/16/25 01/16/25 04:00 08:06 11:31 Temp 98.6 98.8 98.8 Pulse 78 106 111 Resp 20 18 16 B/P (MAP) 120/ 131/79 119/71 Pulse Ox 98 96 95 O2 Delivery Room Air Room Air Room Air Intake & Output (last 24hrs) 01/15/25 01/15/25 01/16/25 15:00 23:00 07:00 Intake Total 300 ml 50.0 ml Output Total 900 ml 200 ml 1000 ml Balance -600 ml -200 ml -950.0 ml LABS: Laboratory: Test 01/16/25 11:19 01/14/25 18:04 Range/Units White Blood Count 16.0 H 4.8-10.8 K/uL Red Blood Count 3.20 L 4.50-6.20 MIL/uL Hemoglobin 9.6 L 14.0-18.0 g/dL Hematocrit 29.5 L 42-54 % Mean Corpuscular Volume 92.2 79-99 fL Mean Corpuscular Hemoglobin 30.0 27.0-33.0 pg Mean Corpuscular Hemoglobin Concent 32.5 32.0-36.0 g/dL Red Cell Distribution Width 14.1 11.0-15.5 % Platelet Count 324 130-400 K/uL Mean Platelet Volume 9.2 7.5-10.5 fL Nucleated Red Blood Cells 0.0 0.0-0.19 % Sodium Level 134 L 136-145 mmol/L Potassium Level 3.5 3.5-5.1 mmol/L Chloride Level 102 101-111 mmol/L Carbon Dioxide Level 29 21-32 mmol/L Blood Urea Nitrogen 5 L 7-18 mg/dL Creatinine 0.6 0.5-1.3 mg/dL Glomerular Filtration Rate Calc 130 >90 mL/min Random Glucose 104 70-105 mg/dL Total Calcium 7.9 L 8.5-10.1 mg/dL Lactic Acid Level 1.0 0.8-2.5 mmol/L ASSESSMENT: Acute cholecystitis, status post laparoscopic cholecystectomy on 01/11/2025. Sepsis. Biliary obstruction, status post ERCP with stone extraction. Leukocytosis. Postoperative blood loss Anemia requiring blood transfusion. Substance abuse. PLAN: Continue Zosyn. Continue pain management. From Infectious Disease standpoint patient can be discharge to home on Augmentin and levofloxacin x 10 days when ready to discharge. Prescription was written. This case was reviewed and discussed with my supervising physician and the above assessment and plan was formulated and agreed upon. ATTESTATION BY PHYSICIAN I have seen and examined the patient. I reviewed the documentation, medical decision making, and treatment plan as noted by the mid-level provider above. I agree with the findings and plan of care. SERGO MARQUEZ MD, [facility] Jan 16, 2025 12:15
[2025-01-16 15:39] VITALS: BP 130/72; PULSE 89; RESP 16; TEMP 98.1
--- NOTE | 2025-01-16 15:54 | DS ---
Discharge Summary Hospital Course Summary: This is a 34-year-old male patient with past medical history of obesity and substance abuse marijuana and cocaine who presented to the hospital with chief complaints of abdominal pain. Patient had no fever however the WBC was elevated at 17.2 and the ESR was 25. Patient also had elevated liver enzymes. A CT of the abdomen and pelvis done on admission showed acute calculous cholecystitis. A HIDA scan confirmed findings of acute cholecystitis and possible extrahepatic biliary obstruction and on 01/10/2025 patient underwent an ERCP with stone extractions. On 01/11/2025 patient underwent a laparoscopic cholecystectomy. Postoperatively today patient's WBC increased to 28.7. Postoperatively patient had a drop in his hemoglobin as well. Surgery was aware of the [facility] CT scan was performed which showed small hematoma. Also due to worsening hemodynamics along with leukocytosis id also evaluated the patient and put him on broad-spectrum a ntibiotics. He was transferred to ICU briefly but recovered well to be transferred back to the floor. He received1 unit of packed red blood cells. His hemoglobin has stabilized and his vital signs of come back to normal with improving white blood cell count to the 16. Cultures have remained negative. Both Infectious Disease and General surgery recommended that he can be discha rged as he was back to his baseline tolerating diet and no abdominal pain reported. He was discharged in stable medical condition with a close follow up with General surgery infectious disease has placed him on Augmentin and Levaquin for 10 days Clerical Supervisor(s): General surgery and Infectious Disease Procedure(s): Laparoscopic cholecystectomy Assessment/Plan: ASSESSMENT: Symptomatic biliary colic with multiple cholelithiasis, POA Suspected acute cholecystitis, POA Leukocytosis, POA Dehydration, POA History of long-term cocaine use disorder, (Last cocaine use, 2 days ago, 01/07/25) POA History of tobacco use disorder, POA Obesity, POA PLAN: Fall risk and orthostasis Fall precautions in place. Obtain orthostatic vitals. Hemodynamics and suspected bleeding General surgery consult for postop bleeding evaluation. H and H q4h monitoring. Transfuse packed RBCs if hemoglobin less than 8. abdominal CT scan can be ordered. Continue IV fluids LR at 125 mL/hour. Monitor BP, HR and overall hemodynamic stability. Infectious disease and possible cholangitis Infectious disease consult already placed. Continue Zosyn 3.375 g IV q.6h. Monitor fever trends, lactate and inflammatory markers. Blood culture has been ordered for worsening fever and WBC. Renal Stict I/Os and urine monitoring every hour. Increase IV fluids per response to bolus. REPEAT BMP and lactate in AM Neurological Neurochecks every 4 hours. Monitor mentation and rule out metabolic encephalopathy. Consider head CT if mental status worsens. Nutrition and fluid management Continue IV fluids. Albumin infusion if level drops further. Substance use and social support Monitor for withdrawal symptoms. social worker clinical consult for substance use counseling. Patient will be admitted to medical-surgical floor under telemetry monitoring Postop status, laparoscopic cholecystectomy done today patient is stable and recovering. ERCP performed with biliary sphincterotomy. One stone removed, 3 remaining biliary stents placed For repeat ERCP in 4 weeks for complete stone removal On outpatient basis. Elevated lipase amylase with biliary obstruction. Improvement expected post stone removal. From ampulla concerns for cholangitis broad-spectrum antibiotics needed continue Zosyn Pain and marijuana use history monitor for withdrawal symptoms. Postoperative care monitor vitals q.4h, assess pain nausea signs of infection. Liquid diet only. Maintain strict I/os. One bolus of NS at 500 mL was administered. IV fluids continue LR at 125 mL/hour for hydration tachycardia subsides and he is hemodynamically stable maintain LR at 80 mL/hour Pain management Continue acetaminophen 650 mg p.o. q.6h p.r.n.. Continue hydrocodone acetaminophen1 tab p.o. q.4h p.r.n. for moderate pain bracket recording ES. [id number] mg IV q.8h p.r.n.. Morphine2 mg IV p.r.n. if severe pain only. Continue Zosyn 3.375 g IV q.6h for at least48 hours. Continue social work involvement for long-term substance abuse cessation counseling. Monitor electrolytes closely and replace as per facility protocol. DVT prophylaxis and GI prophylaxis should be continued. Home Medications: Active Scripts Acetaminophen with Codeine (Acetaminophen-Cod #3 Tablet) 300 Mg-30 Mg Tablet, 1 EACH PO Q4PRN, #30 TAB Prov:MANDEEP SHERIDAN MD 01/12/25 Time spent arranging discharge: 31-60 minutes NATANAEL SPAIN MD Jan 16, 2025 15:54
--- NOTE | 2025-01-16 18:00 | NUR ---
PICC LINE DISCONTINUED: Teaching performed regarding PICC line removal with patient. Mother at bedside. Double lumen PICC removed from right upper extremity. Catheter tip in tact. Site free from signs/symptoms of infection. No bleeding noted. Pressure held for hemostasis. Pressure dressing applied. Patient instructed to keep in place for 24 hours. Patient tolerated procedure.
--- NOTE | 2025-01-16 19:00 | NUR ---
DISCHARGE NOTE: ID bands removed. Discharge instructions provided by nurse on [facility]. Prescription reviewed along with discharge orders. Belongings packed and taken by patient. Mother present. Patient taken down via wheelchair by DIRECTOR ATHLETIC to private vehicle.
== END 2025-01-16 18:50 | disposition home or self-care (01) | DRG 418 ==
LOC: EDH 11:51 → EDHIP 11:52 → EDH 13:07 → 3DH 17:05 → 2DH 01-13 20:27 → 4BH 01-14 14:25 → 3AH 01-15 06:11
PROVIDERS: ADMIT Internal Medicine Sleep Medicine; ATTEND Internal Medicine Sleep Medicine
PROC: 0FC98ZZ Extirpation of Matter from Common Bile Duct, Via Natural or Artificial Opening Endoscopic (ICD-10-PCS; 2025-01-10)
PROC: 0F798DZ Dilation of Common Bile Duct with Intraluminal Device, Via Natural or Artificial Opening Endoscopic (ICD-10-PCS; 2025-01-10)
PROC: 0FT44ZZ Resection of Gallbladder, Percutaneous Endoscopic Approach (ICD-10-PCS; principal; 2025-01-11 08:00)
PROC: 02HV33Z Insertion of Infusion Device into Superior Vena Cava, Percutaneous Approach (ICD-10-PCS; 2025-01-12)
PROC: 30233N1 Transfusion of Nonautologous Red Blood Cells into Peripheral Vein, Percutaneous Approach (ICD-10-PCS; 2025-01-13)
DX: K80.62 Calculus of gallbladder and bile duct with acute cholecystitis without obstruction (principal); D62 Acute posthemorrhagic anemia; R65.10 Systemic inflammatory response syndrome (SIRS) of non-infectious origin without acute organ dysfunction; E66.9 Obesity, unspecified; E86.0 Dehydration; F41.9 Anxiety disorder, unspecified; K76.0 Fatty (change of) liver, not elsewhere classified; F17.210 Nicotine dependence, cigarettes, uncomplicated; Z82.49 Family history of ischemic heart disease and other diseases of the circulatory system; Z90.49 Acquired absence of other specified parts of digestive tract; Z68.37 Body mass index [BMI] 37.0-37.9, adult; Z79.899 Other long term (current) drug therapy
CPT/HCPCS: 36415; 36556; 43264; 43274; 71045; 74177; 74330; 76705; 78226; 80048; 80053; 80076; 80305; 82150; 82550; 82948; 83036; 83605; 83690; 83735; 83880; 84145; 84443; 84484; 85014; 85018; 85025; 85027; 85610; 85651; 85730; 86140; 86850; 86900; 86901; 86923; 87040; 93005; 96374; 96375; 96376; 99285; A9537; C1769; C1773; C1894; G0378; J0171; J0330; J0461; J1100; J1885; J2003; J2250; J2270; J2405; J2470; J2543; J2704; J2710; J3010; J3411; J3475; J3490; J7030; J7120; P9016; Q9967; A4215; A4216; A4221; A4222; A4223; A4600; A4649; A4657; A6206; A7002; C1875; C2625; J0665